=== PATIENT | female | born 1990 | race Caucasian/White ===

== ENCOUNTER 2017-11-19 11:27 | Outpatient (CLI) | payer BC, SELFPAY ==
[2017-11-19 12:09] LABS: Abs Immature Grans 0.02 k/cumm (0.0-0.09); Absolute Basophil Count 0.01 k/cumm (0.0-0.2); Absolute Eosinophil Count 0.03 k/cumm (0.0-0.7); Absolute Lymphocyte Count 2.43 k/cumm (1.2-3.4); Absolute Monocyte Count 0.68 k/cumm (0.11-0.7); Absolute Neutrophil Count 8.12 k/cumm (1.2-6.7); Basophils % 0.1; Eosinophils % 0.3; HCT 41.3 % (36.0-46.0); HGB 14.4 g/dL (12.0-15.5); Immature Grans % 0.2; Lymphocytes % 21.5; Mean Corp. HGB Concentration 34.9 g/dL (32.0-36.0); Mean Corpuscular Hemoglobin 30.3 pg (27.0-33.0); Mean Corpuscular Volume 86.9 fL (80-95); Mean Platelet Volume 10.2 fL (8.0-11.0); Neutrophils % 71.9; Platelet Count 239 x1000/uL (130-400); RBC 4.75 m/cumm (4.00-5.20); RBC Distribution Width 12.1 % (11.7-14.6); White Blood Cell Count 11.29 k/cumm (4.4-10.8)
[2017-11-20 10:11] LABS: HIV-1/2 Ag & Ab Screen Negative (NEGAT); Hepatitis C Ab w Rflx HCV PCR Negative (NEGAT)
[2017-11-20 11:34] LABS: Hepatitis B Surface Ag Negative (NEGAT)
[2017-11-21 08:43] LABS: Rubella IgG Ab (UVM) Positive; Syphilis Serology (RPR) Negative (Negative)
== END 2017-11-19 11:47 ==
PROVIDERS: Visit Provider Obstetrics & Gynecology
DX: Z34.91 Encounter for supervision of normal pregnancy, unspecified, first trimester (principal)
CPT/HCPCS: 36415; 80055; 86850; 86900; 86901; 84702

== ENCOUNTER 2017-12-03 16:03 | Outpatient (REF) | payer BC, SELFPAY ==
[2017-12-03 16:53] LABS: Tricyclic Antidepressants Negative (Negative)
[2017-12-03 16:57] LABS: *AMPHETAMINES SCREEN URINE Negative (Negative); *BARBITURATES SCREEN URINE Negative (Negative); *BENZODIAZEPINES SCREEN URINE Negative (Negative); Cannabinoids THC Negative (Negative); Cocaine Screen,Urine Negative (Negative); METHADONE URINE SCREEN Negative (Negative); OPIATES URINE SCREEN Negative (Negative)
[2017-12-05 14:52] LABS: GC Result Negative; Specimen Description CERVIX
[2017-12-05 15:12] LABS: Chlamydia Result Positive
== END 2017-12-03 16:23 ==
LOC: LBN 16:03
PROVIDERS: Visit Provider Advanced Practice Midwife
DX: Z34.91 Encounter for supervision of normal pregnancy, unspecified, first trimester (principal); Z11.3 Encounter for screening for infections with a predominantly sexual mode of transmission
CPT/HCPCS: 80307; 87491; 87591; 87086

== ENCOUNTER 2017-12-04 14:32 | Outpatient (CLI) | payer BC, SELFPAY ==
[2017-12-04 15:42] LABS: TSH (W/Ref FT4) 2.49 uIU/mL (0.358-3.74)
[2017-12-06 11:34] LABS: Varicella IgG Antibody Positive
== END 2017-12-04 14:52 ==
PROVIDERS: Visit Provider Advanced Practice Midwife
DX: Z34.91 Encounter for supervision of normal pregnancy, unspecified, first trimester (principal); Z11.59 Encounter for screening for other viral diseases
CPT/HCPCS: 36415; 86787; 84443

== ENCOUNTER 2018-01-03 13:52 | Outpatient (CLI) | payer BC, SELFPAY | END 2018-01-03 14:12 | PROVIDERS: Visit Provider Nurse Practitioner | DX: R00.0 Tachycardia, unspecified (principal); Z3A.13 13 weeks gestation of pregnancy | CPT/HCPCS: 93005; 93010 ==

== ENCOUNTER 2018-01-21 11:50 | Emergency (ER) | payer BC, SELFPAY ==
[2018-01-21 12:01] VITALS: BP 112/72; PULSE 121; RESP 22; TEMP 36.6; O2SAT 99
[2018-01-21 12:15] VITALS: PULSE 92; RESP 13; O2SAT 100
--- NOTE | 2018-01-21 12:18 | DI.RAD_ITS ---
SYMPTOMS/DIAGNOSIS: SHORTNESS OF BREATH PA AND LATERAL CHEST: The heart is normal in size. The lungs are clear. The mediastinal structures and pleura appear intact. SUMMARY: Normal chest.
[2018-01-21 12:20] VITALS: PULSE 95; RESP 13; O2SAT 99
--- NOTE | 2018-01-21 12:20 | W.ED.GENAD ---
Discharge Plan Disposition Patient Disposition: HOME Condition: Stable Discharge Details Chief Complaint: Palpitatns Clinical Impression: Shortness of breath Primary Care Provider: None,None ED Provider: Jeffy Salazar Home Meds and New Rx's Prescriptions: Continue prenat.vits,rukhsana,fre-lodq-soibh [ Vitamin] tablet 1 tab PO DAILY RF: 0 ranitidine HCl 150 mg capsule 150 mg PO BID Qty: 30 RF: 0 promethazine 12.5 mg tablet 12.5 mg PO Q6H PRN (Reason: nausea and vomiting) Qty: 30 RF: 2 Discharge Instructions Additional Instructions: your blood work, xray and vq scan showed no concerning findings follow up with your ob provider within a week if ou have svere worsening shortness of breath, high fevers or severe pain return to the emergency department Medical Decision Making 27 yo female at 16 weeks , who on bedside u/s has live iup with fhr of 140 and no pericardial effusion or enlarged rv on beside u/s of patient's heart, who comes in stating she can't get a deep breath in starting today. She has had issues with elevated HR this . She denies chest pain or pressure, fevers or cough, has normal lung sounds and no leg swelling or calf pain. Will eval for anemia but feel given her HR of 110 and normal lung sounds and complaint of sob feel PE needs to be evaluated. Based on uptodate recs will obtain chest xray and if negative proceed with vq scan to eval for this. No chest pain or pressure to suggset acs. No pericardial effusion or evidence of pulmonary edema on bedside u/s labs unremarkable, remains stable, awaiting vq scan pt remains stable, labs and vq scan per Dr. Monk unremarkable. Will d/c home and advised f/u with ob and return if worsening Differential Diagnosis anemia, pe, pericardial effusion, pna Imaging Data Radiologic Study: Attestation: I personally reviewed and interpreted this imaging study as follows: Imaging: X-Ray My impression: no acute findings Radiologic Study #2: Attestation: I personally reviewed and interpreted this imaging study as follows: Imaging: X-Ray (vq scan) Radiologist's impression: normal per dr. monk Lab Data Lab results reviewed: Yes I reviewed the patient's lab results. ECG Data Attestation: I personally reviewed and interpreted this ECG (s) as follows: Prior ECG tracings: not available for review Interpretation: sinus tachycardia, rate of 104, normal axis, pr 116 HPI General Mode of arrival: ambulatory. Date/Time Provider Initiated Documentation: 01/21/18 12:06. Limitations to Documentation: no limitations. Information obtained by: patient. History of Present Illness 27 year old F presents to the emergency department with the chief complaint of short of breath, described as moderate, Patient started experiencing this day(s) (1) and it has been constant. No relieving factors improve symptom(s), No exacerbating factors reported . Patient notes no other symptoms.. Patient did receive the following treatments prior to arrival, none Related Data Home Medications Medication Instructions Recorded Confirmed 1 tab PO DAILY 11/26/17 01/21/18 vitamin,calcium,fwfrqcyx-ebqg-usgnk acid tablet ranitidine 150 mg capsule 150 mg PO BID #30 cap 12/03/17 01/01/18 promethazine 12.5 mg tablet 12.5 mg PO Q6H PRN #30 tab 12/11/17 01/21/18 Previous Rx's Medication Instructions Recorded ranitidine 150 mg capsule 150 mg PO BID #30 cap 12/03/17 promethazine 12.5 mg tablet 12.5 mg PO Q6H PRN #30 tab 12/11/17 Allergies Allergy/AdvReac Type Severity Reaction Status Date / Time ciprofloxacin Allergy Intermediate Itching Unverified 01/21/18 12:06 General Stated Complaint: Palpitatns ISIS: 2 Review of Systems Review of Systems All systems reviewed & are unremarkable except as noted in HPI and below Constitutional Denies chills, Denies fever(s) and Denies weakness Eyes Denies loss of vision ENT Denies change in voice Cardiovascular Denies chest pain Gastrointestinal Denies abdominal pain, Denies nausea and Denies vomiting Genitourinary Denies dysuria Musculoskeletal Denies joint swelling Integumentary/Breasts Denies rash Neurologic Denies loss of vision and Denies weakness Psychiatric Denies depression Endocrine Denies cold intolerance and Denies heat intolerance Allergic/Immunologic Denies urticaria [facility] Medical History Maternal blood transfusion (Acute) Social History adopted: Yes (knows biological hx. 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 Smoking/Tobacco Use Status: Never Surgical History History of appendectomy (Chronic) Female Reproductive History Menstrual Age of Menarche: 15 Duration of menses: 6-7 days control method: none Exam Const General: no acute distress Orientation: alert HENMT Head: normal to inspection Ears: external ears normal General nose exam: external nose normal Mouth: moist mucous membranes Eyes General: appearance normal, both eyes and all related structures Neck Neck: normal visual inspection Resp Effort & Inspection: normal respiratory effort and able to speak in complete sentences Cardio Jugular venous pressure: no JVD Rate: tachycardic Rhythm: regular rhythm Skin General skin exam: no rashes or lesions noted Neuro General: alert and oriented x3 Extrem General: normal to inspection Psych Mental Status: mental status grossly normal Course Vital Signs Temperature 36.6 C 01/21/18 12:01 Pulse 121 H 01/21/18 12:01 Respiratory Rate 22 01/21/18 12:01 Blood Pressure 112/72 01/21/18 12:01 Pulse Oximetry 99 01/21/18 12:01 Temperature 36.6 C 01/21/18 12:01 Temperature Source Skin 01/21/18 12:01 Pulse 121 H 01/21/18 12:01 Respiratory Rate 22 01/21/18 12:01 Respiratory Effort 01/21/18 12:05 Blood Pressure 112/72 01/21/18 12:01 Pulse Oximetry 99 01/21/18 12:01 Pain Level 0 01/21/18 12:01
--- NOTE | 2018-01-21 12:26 | ED.GENADUL_ITS ---
Discharge Plan Disposition Patient Disposition: HOME Condition: Stable Discharge Details Chief Complaint: Palpitatns Clinical Impression: Shortness of breath Primary Care Provider: None,None ED Provider: Jeffy Salazar Home Meds and New Rx's Prescriptions: Continue prenat.vits,rukhsana,ona-genm-wcxfc [ Vitamin] tablet 1 tab PO DAILY RF: 0 ranitidine HCl 150 mg capsule 150 mg PO BID Qty: 30 RF: 0 promethazine 12.5 mg tablet 12.5 mg PO Q6H PRN (Reason: nausea and vomiting) Qty: 30 RF: 2 Discharge Instructions Additional Instructions: your blood work, xray and vq scan showed no concerning findings follow up with your ob provider within a week if ou have svere worsening shortness of breath, high fevers or severe pain return to the emergency department Medical Decision Making 27 yo female at 16 weeks , who on bedside u/s has live iup with fhr of 140 and no pericardial effusion or enlarged rv on beside u/s of patient' s heart, who comes in stating she can't get a deep breath in starting today. She has had issues with elevated HR this . She denies chest pain or pressure, fevers or cough, has normal lung sounds and no leg swelling or calf pain. Will eval for anemia but feel given her HR of 110 and normal lung sounds and complaint of sob feel PE needs to be evaluated. Based on uptodate recs will obtain chest xray and if negative proceed with vq scan to eval for this. No chest pain or pressure to suggset acs. No pericardial effusion or evidence of pulmonary edema on bedside u/s labs unremarkable, remains stable, awaiting vq scan pt remains stable, labs and vq scan per Dr. Monk unremarkable. Will d/c home and advised f/u with ob and return if worsening Differential Diagnosis anemia, pe, pericardial effusion, pna Imaging Data Radiologic Study: Attestation: I personally reviewed and interpreted this imaging study as follows: Imaging: X-Ray My impression: no acute findings Radiologic Study #2: Attestation: I personally reviewed and interpreted this imaging study as follows: Imaging: X-Ray (vq scan) Radiologist's impression: normal per dr. monk Lab Data Lab results reviewed: Yes I reviewed the patient's lab results. ECG Data Attestation: I personally reviewed and interpreted this ECG (s) as follows: Prior ECG tracings: not available for review Interpretation: sinus tachycardia, rate of 104, normal axis, pr 116 HPI General Mode of arrival: ambulatory . Date/Time Provider Initiated Documentation: 01/21/18 12:06 . Limitations to Documentation: no limitations . Information obtained by: patient . History of Present Illness 27 year old F presents to the emergency department with the chief complaint of short of breath, described as moderate, Patient started experiencing this day(s) (1) and it has been constant. No relieving factors improve symptom(s) , No exacerbating factors reported . Patient notes no other symptoms.. Patient did receive the following treatments prior to arrival, none Related Data Home Medications Medication Instructions Recorded Confirmed 1 tab PO DAILY 11/26/17 01/21/18 vitamin,calcium,zhbbruzx-nmtz-vcgqr acid tablet ranitidine 150 mg capsule 150 mg PO BID #30 cap 12/03/17 01/01/18 promethazine 12.5 mg tablet 12.5 mg PO Q6H PRN #30 tab 12/11/17 01/21/18 Previous Rx's Medication Instructions Recorded ranitidine 150 mg capsule 150 mg PO BID #30 cap 12/03/17 promethazine 12.5 mg tablet 12.5 mg PO Q6H PRN #30 tab 12/11/17 Allergies Allergy/AdvReac Type Severity Reaction Status Date / Time ciprofloxacin Allergy Intermediate Itching Unverified 01/21/18 12:06 General Stated Complaint: Palpitatns ISIS: 2 Review of Systems Review of Systems All systems reviewed & are unremarkable except as noted in HPI and below Constitutional Denies chills, Denies fever(s) and Denies weakness Eyes Denies loss of vision ENT Denies change in voice Cardiovascular Denies chest pain Gastrointestinal Denies abdominal pain, Denies nausea and Denies vomiting Genitourinary Denies dysuria Musculoskeletal Denies joint swelling Integumentary/Breasts Denies rash Neurologic Denies loss of vision and Denies weakness Psychiatric Denies depression Endocrine Denies cold intolerance and Denies heat intolerance Allergic/Immunologic Denies urticaria [facility] Medical History Maternal blood transfusion (Acute) Social History adopted: Yes (knows biological hx. 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 Smoking/Tobacco Use Status: Never Surgical History History of appendectomy (Chronic) Female Reproductive History Menstrual Age of Menarche: 15 Duration of menses: 6-7 days control method: none Exam Const General: no acute distress Orientation: alert HENMT Head: normal to inspection Ears: external ears normal General nose exam: external nose normal Mouth: moist mucous membranes Eyes General: appearance normal, both eyes and all related structures Neck Neck: normal visual inspection Resp Effort & Inspection: normal respiratory effort and able to speak in complete sentences Cardio Jugular venous pressure: no JVD Rate: tachycardic Rhythm: regular rhythm Skin General skin exam: no rashes or lesions noted Neuro General: alert and oriented x3 Extrem General: normal to inspection Psych Mental Status: mental status grossly normal Course Vital Signs Temperature 36.6 C 01/21/18 12:01 Pulse 121 H 01/21/18 12:01 Respiratory Rate 22 01/21/18 12:01 Blood Pressure 112/72 01/21/18 12:01 Pulse Oximetry 99 01/21/18 12:01 Temperature 36.6 C 01/21/18 12:01 Temperature Source Skin 01/21/18 12:01 Pulse 121 H 01/21/18 12:01 Respiratory Rate 22 01/21/18 12:01 Respiratory Effort 01/21/18 12:05 Blood Pressure 112/72 01/21/18 12:01 Pulse Oximetry 99 01/21/18 12:01 Pain Level 0 01/21/18 12:01
[2018-01-21 12:30] VITALS: PULSE 105; RESP 15; O2SAT 99
[2018-01-21 12:40] LABS: Abs Immature Grans 0.03 k/cumm (0.0-0.09); Absolute Basophil Count 0.01 k/cumm (0.0-0.2); Absolute Eosinophil Count 0.06 k/cumm (0.0-0.7); Absolute Lymphocyte Count 1.36 k/cumm (1.2-3.4); Absolute Monocyte Count 0.71 k/cumm (0.11-0.7); Absolute Neutrophil Count 9.09 k/cumm (1.2-6.7); Basophils % 0.1; Eosinophils % 0.5; HCT 39.1 % (36.0-46.0); HGB 13.7 g/dL (12.0-15.5); Immature Grans % 0.3; Lymphocytes % 12.1; Mean Corpuscular Hemoglobin 30.5 pg (27.0-33.0); Mean Corpuscular Volume 87.1 fL (80-95); Mean Platelet Volume 10.5 fL (8.0-11.0); Monocytes % 6.3; Neutrophils % 80.7; Platelet Count 230 x1000/uL (130-400); RBC 4.49 m/cumm (4.00-5.20); RBC Distribution Width 13.2 % (11.7-14.6); White Blood Cell Count 11.27 k/cumm (4.4-10.8)
[2018-01-21 12:56] LABS: ALT 37 U/L (12-78); AST 22 U/L (15-37); Albumin 3.5 g/dL (3.4-5.0); Alkaline Phosphatase 66 U/L (46-116); Anion Gap 17.3 mmol/L (3-11); BUN 8 mg/dL (7-18); Bilirubin, Total 0.3 mg/dL (0.2-1.0); CO2 18.7 mmol/L (21.0-32.0); CREATININE 0.64 mg/dL (0.55-1.02); Calcium 9.6 mg/dL (8.5-10.1); Chloride 98 mmol/L (98-107); Glucose 76 mg/dL (70-100); Magnesium 1.7 mg/dL (1.8-2.4); Potassium 3.5 mmol/L (3.5-5.1); Sodium 134 mmol/L (136-145); Total Protein 8.2 g/dL (6.4-8.2)
[2018-01-21 12:58] LABS: Troponin I < 0.02 ng/mL (0.00-0.06)
[2018-01-21 13:00] LABS: Prothrombin Time 9.7 sec (9.3-10.8)
[2018-01-21] MEDS: Normal Saline 1,000 ML 1000 ML IV (13:17)
--- NOTE | 2018-01-21 14:35 | DI.NM_ITS ---
SYMPTOMS/DIAGNOSIS: SHORTNESS OF BREATH LUNG SCAN: A perfusion lung scan was carried out according to the usual protocol. 1.7 mCi of technetium 99m MAA (a reduced dose) was injected intravenously according to the usual protocol. There is no evidence of perfusion defect on multiplanar perfusion imaging. CONCLUSION: Normal perfusion lung scan; no evidence of pulmonary embolic disease.
[2018-01-21 15:52] VITALS: BP 117/70; PULSE 106; RESP 16; TEMP 36.6; O2SAT 98
== END 2018-01-21 15:55 | disposition home or self-care (01) ==
PROVIDERS: Emergency Provider Emergency Medicine
DX: O26.892 Other specified pregnancy related conditions, second trimester (principal); R00.0 Tachycardia, unspecified; Z3A.16 16 weeks gestation of pregnancy; R06.02 Shortness of breath
CPT/HCPCS: 36415; 80053; 93005; 96360; 99285; 71046; 78580; 83735; 84484; 85025; 85610; 85730; 93010

== ENCOUNTER 2018-01-29 16:25 | Outpatient (CLI) | payer BC, SELFPAY ==
[2018-01-31 17:17] LABS: AFP 33.8 ng/mL; Calculated age at EDD 27 years; Cigarette smoking status non-smoker; GA used in risk estimate Scan estimate; INHIBIN 167 pg/mL; IVF Pregnancy No; Initial or repeat testing Initial testing; Insulin dependent diabetes No; Maternal Weight 149 lbs; Number of Fetuses 1; Physician Phone Number 802-748-7300; Prev Down(T21)/Trisomy Pregnan No; Prev Pregnancy w/NTD No; RECOMMENDED FOLLOW UP None.; Results Summary Normal risk; hCG, TOTAL 29.9 IU/mL; hCG, TOTAL MoM 1.18 MoM; uE3 1.36 ng/mL; uE3 MoM 1.13 MoM
== END 2018-01-29 16:45 ==
PROVIDERS: Visit Provider Advanced Practice Midwife
DX: Z34.92 Encounter for supervision of normal pregnancy, unspecified, second trimester (principal); Z36.89 Encounter for other specified antenatal screening
CPT/HCPCS: 36415; 81511

== ENCOUNTER 2018-02-03 00:39 | Outpatient (CLI) | payer BC, SELFPAY ==
--- NOTE | 2018-02-03 14:01 | DI.US_ITS ---
SYMPTOM/DIAGNOSIS: ROUTINE [facility], Z34.90 SURVEY OBSTETRICAL ULTRASOUND: Routine examination. There is a single living intrauterine gestation. Estimated sonographic age is 18 weeks 2 days. No or placental abnormalities are identified. heart rate is 152 BPM. Amniotic fluid appears within normal limits visually. IMPRESSION: Single living intrauterine gestation. Estimated sonographic age is 18 weeks 2 days. Many abnormalities cannot be diagnosed. A normal exam does not exclude a congenital anomaly. Radiology No. [id number] LMP: Exam Date: 02/03/18 [facility] wks days on EDC ([facility]) 07/07/18 Confirmed: HISTORY: SURVEY , WT LOSS ---- PREDICTED GESTATIONAL AGE NUMBER 18 weeks with a range of 17 week to 19 weeks. 1 Determined by_XX__1STUS___LMP___HISTORY Info. pertaining to fetus # PLACENTA PRESENTATION Grade 0-1 Cephalic___ Anterior_XX__Posterior___ Breech____ Right Left Transverse(head right___ Fundal___Low-lying___Previa___ Transverse(head left___ Varying___X___ BIOMETRY AMNIOTIC FLUID BPD: 40 mm 18- weeks Normal HC: 151 mm 18 +1 weeks AC: 127 mm 18 +2 weeks FL: 28 mm 18 +3 weeks AMNIOTIC FLUID INDEX >26 WK CRL: mm weeks Cisterna Magna: 4 mm CI: 0.78 RUQ: LUQ Cerebellum: 1.9 cm EFW: grams Percentile RLQ: LLQ Total: cms Composite AGE= 18 +2 wks EDC by US____07/05/18 BIOPHYSICAL PROFILE ANATOMY IDENTIFIED SCORE 0/2 Heart: 4-Chamber_X__Rate:BPM___152__ LVOT:___X RVOT:____X____ Amniotic Fluid(>2cms)____ Stomach:__X Kidneys:____X Respirations (>30 sec) Bladder ___X Post Fossa __X Body Flex/Extension 3 vessel cord:_X Ventricles:__X cord insertion:___X__ Lips:_X___ Extremity Flex/Extension spinal morphology:____X____Nose:X Total Score= Palate:__X NS=not seen
== END 2018-02-03 00:59 ==
PROVIDERS: Visit Provider Advanced Practice Midwife
DX: Z34.92 Encounter for supervision of normal pregnancy, unspecified, second trimester (principal)
CPT/HCPCS: 76805

== ENCOUNTER 2018-05-17 12:48 | Emergency (ER) | payer MEDICAID, SELFPAY ==
[2018-05-17] VITALS (19 sets, daily range): BP systolic 98–118; BP diastolic 55–79; PULSE 86–124; RESP 13–24; TEMP 37–37.1; O2SAT 97–100
--- NOTE | 2018-05-17 13:05 | DI.CT_ITS ---
SYMPTOM/DIAGNOSIS: CHEST PAIN, SOB PE CHEST CT: CT angiography was performed with multi slice acquisition and multi planar and 3D reconstruction. CT angiography of the chest was performed according to protocol. The patient is . There is significant patient motion artifact which does limit the examination. No pulmonary embolus is seen to the level of the lobar pulmonary arterial branches. Heterogeneous enhancement in the segmental and subsegmental pulmonary artery branches may reflect inadequate enhancement, beam hardening motion or partial flow or partial volume averaging artifact. Segmental or subsegmental pulmonary emboli cannot be entirely excluded however. The thoracic aorta is intact. No evidence of dissection. Heart size is within normal limits. No significant pericardial effusion is seen. No findings to suggest right ventricular dysfunction are present. No thoracic adenopathy, pleural effusion or pneumothorax is identified. The lungs show no acute infiltrates. The bones appear intact. The superior aspect of the uterus is seen on the final images of the examination. IMPRESSION: 1. No definite evidence of pulmonary embolus seen to the level of the lobar pulmonary arterial branches. 2. Heterogeneous enhancement pattern in the segmental and subsegmental branches of the pulmonary arteries difficulty to evaluate due to the patinet motion. This may be motion artifact or inadequate enhancement. Pulmonary emboli at this level cannot be entirely excluded.
--- NOTE | 2018-05-17 13:07 | W.ED.GENAD ---
Discharge Plan Disposition Patient Disposition: [facility] Condition: Serious Discharge Details Chief Complaint: Chest Pain Clinical Impression: , Tachycardia, Weakness of right arm, Slurring of speech, Chest discomfort Primary Care Provider: None,None ED Provider: Daev Lacy Home Meds and New Rx's Prescriptions: No Action prenat.vits,rukhsana,btn-huyl-hqpia [ Vitamin] tablet 1 tab PO DAILY RF: 0 ranitidine HCl [Zantac] 150 mg Tablet 150 mg PO DAILY RF: 0 Discharge Data Discharge Date/Time-TO BE ENTERED AT DEPARTURE: 05/17/18 17:48 Medical Decision Making 13:23 --27-year-old female 011 at 32 weeks here with shortness of breath and chest discomfort that started suddenly about an hour prior to arrival. She is saturating well but is short of breath and tachypneic. She is tachycardic. She has been tachycardic through this intermittently. ECG was reviewed and interpreted by me: Sinus tachycardia 119 bpm, short MN with MN interval of 112, T wave inversions are noted in lead III, some artifact present, nondiagnostic. Oxygen therapy was applied. She continues to have shortness of breath. Consider acute pulmonary embolism. Plan to CT chest. I discussed my concerns with the patient and we discussed risk benefits of CT imaging. Patient provides informed consent to proceed with diagnostic testing. Unclear etiology for neurologic symptoms. Consider venous sinus thrombus. Patient is anxious. FHR 156. Patient notes good movement. -- Labs reviewed. Hypomag and hypokalemia noted. Mag 1g given. Kdur 40meq given. -- Patient noted to have some slurring speech here that resolved. -- Patient notes now having frontal HUGHES that is moderate and not as bad as prior migraine HUGHES (last migraine 2 yr ago). Patient declines tylenol. -- Patient reassessed and numbness and weakness in RUE resolved. Chest discomfort and SOB resolved. Still with mild HUGHES. 17:12 -- I [place] [facility] discussed ED presentation and course and my concern for potential sinus thrombosis: he recommends transfer [place] [facility] [place]. Awaiting [place] [facility] [place] with bed availability. 17:15 -- Spoke with Dr. Em ([facility]) will accept patient in transfer. HPI General Mode of arrival: ambulatory. Date/Time Provider Initiated Documentation: 05/17/18 12:49. Limitations to Documentation: no limitations. Information obtained by: patient. HPI Narrative: 27-year-old at 32 weeks here with chief complaint of shortness of breath. Patient notes about 1 hour prior to arrival she suddenly developed chest pain while at rest. She then developed shortness of breath shortly thereafter. Shortness of breath is severe. Feels like she cannot catch her breath. She has associated anxiety. She also notes some associated tingling and now weakness of her right upper extremity. No leg swelling or calf pain. Patient also notes she had some blurred vision spots in her eyes prior to onset of discomfort. These have resolved. Related Data Home Medications Medication Instructions Recorded Confirmed 1 tab PO DAILY 11/26/17 05/17/18 vitamin,calcium,wdedbjrx-nawl-wcwbv acid tablet ranitidine HCl [Zantac] 150 mg PO DAILY 05/17/18 05/17/18 Allergies Allergy/AdvReac Type Severity Reaction Status Date / Time ciprofloxacin Allergy Intermediate Itching Unverified 05/17/18 13:01 General Stated Complaint: Chest Pain ISIS: 2 Review of Systems Review of Systems All systems reviewed & are unremarkable except as noted in HPI and below PFS Medical History Maternal blood transfusion (Acute) Surgical History History of appendectomy (Chronic) Social History Smoking/Tobacco Use Status: Never Alcohol Intake: former Drug use: Never Substance use type: does not use Adopted: Yes (knows biological hx. 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 Sexually active: Yes Do you feel safe in your relationship?: Yes Female Reproductive History Menstrual Age of Menarche: 15 Duration of menses: 6-7 days control method: none History History 3 Para Hx # Term Pregnancies 1 Multiple births 0 Hx # Pregnancies 0 Ectopic pregnancies 0 AB induced 0 Hx Number of Living Children AB spontaneous 1 Exam Const General: cooperative and no acute distress HENMT Head: normocephalic and atraumatic Mouth: mucous membranes dry Eyes Conjunctivae: normal conjunctivae Sclera: normal sclerae EOM: EOM intact bilaterally Neck Neck: trachea midline and supple Resp Effort & Inspection: no cough and tachypneic Auscultation: clear to auscultation bilaterally, no rales, no rhonchi and no wheezes Cardio Jugular venous pressure: no JVD Rate: tachycardic Rhythm: regular rhythm Heart Sounds: no murmurs GI Palpation: soft, not firm, no guarding, no masses, not rigid and nontender Skin General skin exam: no rashes or lesions noted Neuro General: alert, awake and tone normal Cranial Nerves: CN's II-XI intact bilaterally Cognition: normal cognition Motor: other (4 out of 5 strength right upper extremity, otherwise 5 out of 5) Sensory Exam: other (Paresthesias noted distal right upper extremity, diminished sens rt hand) Extrem General: no edema Psych Affect: anxious affect Other: Tearful Course Vital Signs Temperature 37 C 05/17/18 12:57 Pulse 124 H 05/17/18 12:57 Respiratory Rate 22 05/17/18 12:57 Blood Pressure 118/79 05/17/18 12:57 Pulse Oximetry 97 05/17/18 12:57 Temperature 37 C 05/17/18 12:57 Temperature Source Temporal Artery Scan 05/17/18 12:57 Pulse 124 H 05/17/18 12:57 Respiratory Rate 24 05/17/18 13:01 Respiratory Effort 05/17/18 13:01 Respiratory Depth Normal 05/17/18 13:01 Respiratory Pattern Tachypnea 05/17/18 13:01 Blood Pressure 118/79 05/17/18 12:57 Blood Pressure Position Sitting 05/17/18 12:57 Pulse Oximetry 97 05/17/18 12:57 Oxygen Delivery Method Room Air 05/17/18 12:57 Oxygen Flow Rate 0 05/17/18 12:57 Pain Level 5 05/17/18 12:57
[2018-05-17] MEDS: Lactated Ringers 1,000 ML 1000 ML IV (13:10)
--- NOTE | 2018-05-17 13:26 | ED.GENADUL_ITS ---
Discharge Plan Disposition Patient Disposition: [facility] Condition: Serious Discharge Details Chief Complaint: Chest Pain Clinical Impression: , Tachycardia, Weakness of right arm, Slurring of speech, Chest discomfort Primary Care Provider: None,None ED Provider: Dave Lacy Home Meds and New Rx's Prescriptions: No Action prenat.vits,rukhsana,[id number] [ Vitamin] tablet 1 tab PO DAILY RF: 0 ranitidine HCl [Zantac] 150 mg Tablet 150 mg PO DAILY RF: 0 Discharge Data Discharge Date/Time-TO BE ENTERED AT DEPARTURE: 05/17/18 17:48 Medical Decision Making 13:23 --27-year-old female 011 at 32 weeks here with shortness of breath and chest discomfort that started suddenly about an hour prior to arrival. She is saturating well but is short of breath and tachypneic. She is tachycardic. She has been tachycardic through this intermittently. ECG was reviewed and interpreted by me: Sinus tachycardia 119 bpm, short NE with NE interval of 112, T wave inversions are noted in lead III, some artifact present, nondiagnostic. Oxygen therapy was applied. She continues to have shortness of breath. Consider acute pulmonary embolism. Plan to CT chest. I discussed my concerns with the patient and we discussed risk benefits of CT imaging. Patient provides informed consent to proceed with diagnostic testing. Unclear etiology for neurologic symptoms. Consider venous sinus thrombus. Patient is anxious. FHR 156. Patient notes good movement. -- Labs reviewed. Hypomag and hypokalemia noted. Mag 1g given. Kdur 40meq given. -- Patient noted to have some slurring speech here that resolved. -- Patient notes now having frontal HUGHES that is moderate and not as bad as prior migraine HUGHES (last migraine 2 yr ago). Patient declines tylenol. -- Patient reassessed and numbness and weakness in RUE resolved. Chest discomfort and SOB resolved. Still with mild HUGHES. 17:12 -- I [place] [facility] discussed ED presentation and course and my concern for potential sinus thrombosis: he recommends [place] [facility] [place] Awaiting [place] [facility] [place] bed availability. 17:15 -- Spoke with Dr. Em ([facility]) will accept patient in transfer. HPI General Mode of arrival: ambulatory . Date/Time Provider Initiated Documentation: 05/17/18 12:49 . Limitations to Documentation: no limitations . Information obtained by: patient . HPI Narrative: 27-year-old at 32 weeks here with chief complaint of shortness of breath. Patient notes about 1 hour prior to arrival she suddenly developed chest pain while at rest. She then developed shortness of breath shortly thereafter. Shortness of breath is severe. Feels like she cannot catch her breath. She has associated anxiety. She also notes some associated tingling and now weakness of her right upper extremity. No leg swelling or calf pain. Patient also notes she had some blurred vision spots in her eyes prior to onset of discomfort. These have resolved. Related Data Home Medications Medication Instructions Recorded Confirmed 1 tab PO DAILY 11/26/17 05/17/18 vitamin,calcium,eofgmffr-yrzy-pkfyr acid tablet ranitidine HCl [Zantac] 150 mg PO DAILY 05/17/18 05/17/18 Allergies Allergy/AdvReac Type Severity Reaction Status Date / Time ciprofloxacin Allergy Intermediate Itching Unverified 05/17/18 13:01 General Stated Complaint: Chest Pain ISIS: 2 Review of Systems Review of Systems All systems reviewed & are unremarkable except as noted in HPI and below PFS Medical History Maternal blood transfusion (Acute) Surgical History History of appendectomy (Chronic) Social History Smoking/Tobacco Use Status: Never Alcohol Intake: former Drug use: Never Substance use type: does not use Adopted: Yes (knows biological hx. 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 Sexually active: Yes Do you feel safe in your relationship?: Yes Female Reproductive History Menstrual Age of Menarche: 15 Duration of menses: 6-7 days control method: none History History 3 Para Hx # Term Pregnancies 1 Multiple births 0 Hx # Pregnancies 0 Ectopic pregnancies 0 AB induced 0 Hx Number of Living Children AB spontaneous 1 Exam Const General: cooperative and no acute distress HENMT Head: normocephalic and atraumatic Mouth: mucous membranes dry Eyes Conjunctivae: normal conjunctivae Sclera: normal sclerae EOM: EOM intact bilaterally Neck Neck: trachea midline and supple Resp Effort & Inspection: no cough and tachypneic Auscultation: clear to auscultation bilaterally, no rales, no rhonchi and no wheezes Cardio Jugular venous pressure: no JVD Rate: tachycardic Rhythm: regular rhythm Heart Sounds: no murmurs GI Palpation: soft, not firm, no guarding, no masses, not rigid and nontender Skin General skin exam: no rashes or lesions noted Neuro General: alert, awake and tone normal Cranial Nerves: CN's II-XI intact bilaterally Cognition: normal cognition Motor: other (4 out of 5 strength right upper extremity, otherwise 5 out of 5) Sensory Exam: other (Paresthesias noted distal right upper extremity, diminished sens rt hand) Extrem General: no edema Psych Affect: anxious affect Other: Tearful Course Vital Signs Temperature 37 C 05/17/18 12:57 Pulse 124 H 05/17/18 12:57 Respiratory Rate 22 05/17/18 12:57 Blood Pressure 118/79 05/17/18 12:57 Pulse Oximetry 97 05/17/18 12:57 Temperature 37 C 05/17/18 12:57 Temperature Source Temporal Artery Scan 05/17/18 12:57 Pulse 124 H 05/17/18 12:57 Respiratory Rate 24 05/17/18 13:01 Respiratory Effort 05/17/18 13:01 Respiratory Depth Normal 05/17/18 13:01 Respiratory Pattern Tachypnea 05/17/18 13:01 Blood Pressure 118/79 05/17/18 12:57 Blood Pressure Position Sitting 05/17/18 12:57 Pulse Oximetry 97 05/17/18 12:57 Oxygen Delivery Method Room Air 05/17/18 12:57 Oxygen Flow Rate 0 05/17/18 12:57 Pain Level 5 05/17/18 12:57
[2018-05-17] MEDS: Omnipaque 350 MG/ML 100 ML BTL IJ (13:27)
[2018-05-17 13:35] LABS: ALT 19 U/L (12-78); AST 18 U/L (15-37); Abs Immature Grans 0.04 k/cumm (0.0-0.09); Absolute Eosinophil Count 0.06 k/cumm (0.0-0.7); Albumin 3.1 g/dL (3.4-5.0); Alkaline Phosphatase 129 U/L (46-116); Anion Gap 10.5 mmol/L (3-11); Bilirubin, Total 0.3 mg/dL (0.2-1.0); CO2 24.5 mmol/L (21.0-32.0); CREATININE 0.59 mg/dL (0.55-1.02); Calcium 9.1 mg/dL (8.5-10.1); Chloride 101 mmol/L (98-107); Eosinophils % 0.6; Glucose 117 mg/dL (70-100); HCT 35.2 % (36.0-46.0); HGB 11.5 g/dL (12.0-15.5); Immature Grans % 0.4; Lymphocytes % 17.8; Magnesium 1.7 mg/dL (1.8-2.4); Mean Corp. HGB Concentration 32.7 g/dL (32.0-36.0); Mean Corpuscular Hemoglobin 28.3 pg (27.0-33.0); Mean Corpuscular Volume 86.5 fL (80-95); Mean Platelet Volume 10.8 fL (8.0-11.0); Neutrophils % 76.2; Platelet Count 266 x1000/uL (130-400); Potassium 3.3 mmol/L (3.5-5.1); RBC 4.07 m/cumm (4.00-5.20); RBC Distribution Width 12.6 % (11.7-14.6); Sodium 136 mmol/L (136-145); Total Protein 7.7 g/dL (6.4-8.2)
[2018-05-17 13:40] LABS: Troponin I < 0.02 ng/mL (0.00-0.06)
[2018-05-17 13:47] LABS: BUN 4 mg/dL (7-18)
--- NOTE | 2018-05-17 14:04 | DI.VRAD_ITS ---
EXAM: CT Angiography Chest With Contrast EXAM DATE/TIME: 05/17/2018 1:07 PM CLINICAL HISTORY: 27 years old, female; Pain and signs and symptoms; Shortness of breath; Chest wall pain; Patient HX: Patient , patient aware of risks. ; Additional info: Chest pain, and extreme SOB. TECHNIQUE: Axial computed tomographic angiography images of the chest with intravenous contrast using CT angiography protocol. All CT scans at this facility use at least one of these dose optimization techniques: automated exposure control; mA and/or kV adjustment per patient size (includes targeted exams where dose is matched to clinical indication); or iterative reconstruction. Coronal and sagittal reformatted images were created and reviewed. MIP reconstructed images were created and reviewed. CONTRAST: Contrast Material: 100 ml of omnipaque 350; Contrast Route: iv COMPARISON: CR XR CHEST 2V PA LATERAL 01/21/2018 12:41 PM FINDINGS: Pulmonary arteries: No definite pulmonary embolism is seen to the level of the lobar pulmonary arterial branches bilaterally. The heterogeneous or decreased density of some small segmental and subsegmental pulmonary arterial branches may reflect inadequate enhancement, beam hardening, or motion, flow, or partial volume averaging artifact. One or more small segmental or subsegmental pulmonary emboli cannot be excluded. Aorta: Normal. No aortic aneurysm. No aortic dissection. Lungs: Partially imaged masslike opacity on the last image most consistent with enlarged uterus. Pleural space: Normal. No pneumothorax. No pleural effusion. Heart: Normal. No cardiomegaly. No pericardial effusion. Lymph nodes: Unremarkable. No enlarged lymph nodes. Bones/joints: Unremarkable. No acute fracture. Soft tissues: Unremarkable. Other findings: Motion artifact degrades images. IMPRESSION: No definite pulmonary embolism is seen to the level of the lobar pulmonary arterial branches bilaterally. The heterogeneous or decreased density of some small segmental and subsegmental pulmonary arterial branches may reflect inadequate enhancement, beam hardening, or motion, flow, or partial volume averaging artifact. One or more small segmental or subsegmental pulmonary emboli cannot be excluded. Dictated and Authenticated by: Brenda Johnson MD. Ordering:MURRAY Acosta MD
[2018-05-17] MEDS: MAGNESIUM SULFATE 1 GM/100 ML BAG IVPB (14:57)
[2018-05-17] MEDS: Potassium Chloride 10 MEQ TABCR 20 MEQ PO (15:40)
[2018-05-17] MEDS: FAMOTIDINE 20 MG/50 ML BAG 200 MG IVPB (15:45)
[2018-05-17 17:13] LABS: Bilirubin Negative (Negative); Blood Negative (Negative); Clarity Clear; Glucose Negative (Negative); Ketones Trace mg/dL (Negative); Leukocyte Esterase Negative (Negative); Nitrite Negative (Negative); Specific Gravity 1.015 (1.005-1.025); Urobilinogen 0.2 EU/dL (Up TO 0.2); pH 7.5 (5-8)
[2018-05-17] MEDS: Lactated Ringers 1,000 ML 150 ML IV (17:39)
== END 2018-05-17 17:48 | disposition short-term general hospital (02) ==
PROVIDERS: Emergency Provider Student in an Organized Health Care Education/Training Program
DX: O99.413 Diseases of the circulatory system complicating pregnancy, third trimester (principal); R00.0 Tachycardia, unspecified; R07.9 Chest pain, unspecified; O99.353 Diseases of the nervous system complicating pregnancy, third trimester; R53.1 Weakness; R47.81 Slurred speech; Z3A.32 32 weeks gestation of pregnancy
CPT/HCPCS: 36415; 71275; 80053; 93005; 96361; 96365; 96368; 99285; 81003; 83735; 84484; 85025; 93010; J3475; J3490

== ENCOUNTER 2018-08-11 14:01 | Emergency (ER) | payer MEDICAID, SELFPAY ==
[2018-08-11 14:10] VITALS: BP 122/73; PULSE 74; RESP 18; TEMP 36.6; O2SAT 97
--- NOTE | 2018-08-11 14:37 | W.ED.GENAD ---
Discharge Plan Disposition Patient Disposition: HOME Discharge Details Chief Complaint: Nk/Back Pain Clinical Impression: Back pain Primary Care Provider: Rae Kelsey ED Provider: Dave Lacy Home Meds and New Rx's Prescriptions: Continued norethindrone (contraceptive) [Yolanda-BE] 0.35 mg tablet 0.35 mg PO DAILY RF: 0 Discharge Instructions Instructions: Low Back Strain (ED) Additional Instructions: Please avoid activities that cause discomfort. Please contact your primary care physician to arrange follow-up. If pain persists you may need additional diagnostic testing. Return to the ER for any worsening or new concerning symptoms. Referrals: Rae Kelsye [Primary Care Provider] - Medical Decision Making 14:42 --28-year-old female with history of chronic intermittent low back pain, here with exacerbation of low back pain and spasm lumbar spine. Tender lumbar spine with no deformity. Patient has had some paresthesias in her right foot but is currently neurologically intact on exam. Suspect disc herniation versus lumbosacral strain with spasm. I will give Valium 2 mg orally as well as Toradol IM and Tylenol orally. Plan to reassess. 14:09 --patient reassessed and notes some improvement in back pain, feels more comfortable, able to ambulate. I encouraged the patient to call to schedule follow-up appoint with her primary care physician. I advised that if symptoms do not improve further over the next few days and persist or worsen that she will need follow-up and additional diagnostic testing. Patient was encouraged to return immediately should she have any worsening or new concerning symptoms. HPI General Mode of arrival: ambulatory. Date/Time Provider Initiated Documentation: 08/11/18 14:24. Limitations to Documentation: no limitations. Information obtained by: patient. HPI Narrative: 28-year-old female with chronic intermittent low back pain, here with acute exacerbation of her back pain. Patient notes she was lifting up a bucket and developed sudden spasm in her low back. This occurred just prior to arrival. Pain is been persistent since onset. Pain is worse with certain positions. She also noticed some tingling in her right lateral toes. No associated bowel or bladder dysfunction. No recent trauma. No back surgery in the past. Related Data Home Medications Medication Instructions Recorded Confirmed norethindrone (contraceptive) 0.35 0.35 mg PO DAILY 07/29/18 07/29/18 mg tablet Allergies Allergy/AdvReac Type Severity Reaction Status Date / Time ciprofloxacin Allergy Intermediate Itching Unverified 07/29/18 13:00 General Stated Complaint: Nk/Back Pain ISIS: 4 Review of Systems Genitourinary Denies urinary incontinence Musculoskeletal Reports as per HPI and Reports tingling Integumentary/Breasts Denies rash Neurologic Denies burning sensations, Denies focal weakness, Denies sensory deficit and Reports tingling PFSH Medical History Maternal blood transfusion (Acute) Migraine headache with aura (Acute) Tachycardia (Acute) Anxiety (Chronic) Surgical History History of appendectomy (Chronic) Social History Smoking/Tobacco Use Status: Never Alcohol Intake: current Alcohol Intake frequency: holidays/special occasions only Drug use: Never Substance use type: does not use Adopted: Yes (knows biological hx. 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 Sexually active: Yes Do you feel safe at home: Yes Do you feel safe in your relationship?: Yes Female Reproductive History Menstrual Age of Menarche: 15 Duration of menses: 6-7 days control method: none History History 3 Para Hx # Term Pregnancies 1 Multiple births 0 Hx # Pregnancies 0 Ectopic pregnancies 0 AB induced 0 Hx Number of Living Children AB spontaneous 1 Exam Const General: cooperative and no acute distress HENKY Head: normocephalic and atraumatic Mouth: moist mucous membranes Eyes Conjunctivae: normal conjunctivae Sclera: normal sclerae Neck Neck: trachea midline and supple Resp Auscultation: clear to auscultation bilaterally, no rales, no rhonchi and no wheezes Cardio Jugular venous pressure: no JVD Rate: regular rate and not tachycardic Rhythm: regular rhythm Back/Spine/Pelvis Back: No ecchymosis Cervical Spine: cervical ROM normal and No cervical spinal tenderness Thoracic/Lumbar Spine: thoraco-lumbar spasm, No thoracic spinal tenderness and lumbar spinal tenderness (low midline) Skin General skin exam: no rashes or lesions noted Neuro General: alert, awake, oriented x3 and tone normal Cognition: normal cognition Speech: speech normal Motor: strength 5/5 throughout Sensory Exam: no sensory deficits noted and other (no saddle anesth) Extrem General: no edema Course Vital Signs Temperature 36.6 C 08/11/18 14:10 Pulse 74 08/11/18 14:10 Respiratory Rate 18 08/11/18 14:10 Blood Pressure 122/73 08/11/18 14:10 Pulse Oximetry 97 08/11/18 14:10 Temperature 36.6 C 08/11/18 14:10 Temperature Source Temporal Artery Scan 08/11/18 14:10 Pulse 74 08/11/18 14:10 Respiratory Rate 18 08/11/18 14:10 Respiratory Effort 08/11/18 14:10 Blood Pressure 122/73 08/11/18 14:10 Pulse Oximetry 97 08/11/18 14:10 Oxygen Delivery Method Room Air 08/11/18 14:10 Oxygen Flow Rate 0 08/11/18 14:10
--- NOTE | 2018-08-11 14:44 | ED.GENADUL_ITS ---
Discharge Plan Disposition Patient Disposition: HOME Discharge Details Chief Complaint: Nk/Back Pain Clinical Impression: Back pain Primary Care Provider: Rae Kelsey ED Provider: Dave Lacy Home Meds and New Rx's Prescriptions: Continued norethindrone (contraceptive) [Yolanda-BE] 0.35 mg tablet 0.35 mg PO DAILY RF: 0 Discharge Instructions Instructions: Low Back Strain (ED) Additional Instructions: Please avoid activities that cause discomfort. Please contact your primary care physician to arrange follow-up. If pain persists you may need additional diagnostic testing. Return to the ER for any worsening or new concerning symptoms. Referrals: Rae Kelsey [Primary Care Provider] - Medical Decision Making 14:42 --28-year-old female with history of chronic intermittent low back pain, here with exacerbation of low back pain and spasm lumbar spine. Tender lumbar spine with no deformity. Patient has had some paresthesias in her right foot but is currently neurologically intact on exam. Suspect disc herniation versus lumbosacral strain with spasm. I will give Valium 2 mg orally as well as Toradol IM and Tylenol orally. Plan to reassess. 14:09 --patient reassessed and notes some improvement in back pain, feels more comfortable, able to ambulate. I encouraged the patient to call to schedule follow-up appoint with her primary care physician. I advised that if symptoms do not improve further over the next few days and persist or worsen that she will need follow-up and additional diagnostic testing. Patient was encouraged to return immediately should she have any worsening or new concerning symptoms. HPI General Mode of arrival: ambulatory . Date/Time Provider Initiated Documentation: 08/11/18 14:24 . Limitations to Documentation: no limitations . Information obtained by: patient . HPI Narrative: 28-year-old female with chronic intermittent low back pain, here with acute exacerbation of her back pain. Patient notes she was lifting up a bucket and developed sudden spasm in her low back. This occurred just prior to arrival. Pain is been persistent since onset. Pain is worse with certain positions. She also noticed some tingling in her right lateral toes. No associated bowel or bladder dysfunction. No recent trauma. No back surgery in the past. Related Data Home Medications Medication Instructions Recorded Confirmed norethindrone (contraceptive) 0.35 0.35 mg PO DAILY 07/29/18 07/29/18 mg tablet Allergies Allergy/AdvReac Type Severity Reaction Status Date / Time ciprofloxacin Allergy Intermediate Itching Unverified 07/29/18 13:00 General Stated Complaint: Nk/Back Pain ISIS: 4 Review of Systems Genitourinary Denies urinary incontinence Musculoskeletal Reports as per HPI and Reports tingling Integumentary/Breasts Denies rash Neurologic Denies burning sensations, Denies focal weakness, Denies sensory deficit and Reports tingling PFSH Medical History Maternal blood transfusion (Acute) Migraine headache with aura (Acute) Tachycardia (Acute) Anxiety (Chronic) Surgical History History of appendectomy (Chronic) Social History Smoking/Tobacco Use Status: Never Alcohol Intake: current Alcohol Intake frequency: holidays/special occasions only Drug use: Never Substance use type: does not use Adopted: Yes (knows biological hx. 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 Sexually active: Yes Do you feel safe at home: Yes Do you feel safe in your relationship?: Yes Female Reproductive History Menstrual Age of Menarche: 15 Duration of menses: 6-7 days control method: none History History 3 Para Hx # Term Pregnancies 1 Multiple births 0 Hx # Pregnancies 0 Ectopic pregnancies 0 AB induced 0 Hx Number of Living Children AB spontaneous 1 Exam Const General: cooperative and no acute distress HENGA Head: normocephalic and atraumatic Mouth: moist mucous membranes Eyes Conjunctivae: normal conjunctivae Sclera: normal sclerae Neck Neck: trachea midline and supple Resp Auscultation: clear to auscultation bilaterally, no rales, no rhonchi and no wheezes Cardio Jugular venous pressure: no JVD Rate: regular rate and not tachycardic Rhythm: regular rhythm Back/Spine/Pelvis Back: No ecchymosis Cervical Spine: cervical ROM normal and No cervical spinal tenderness Thoracic/Lumbar Spine: thoraco-lumbar spasm, No thoracic spinal tenderness and lumbar spinal tenderness (low midline) Skin General skin exam: no rashes or lesions noted Neuro General: alert, awake, oriented x3 and tone normal Cognition: normal cognition Speech: speech normal Motor: strength 5/5 throughout Sensory Exam: no sensory deficits noted and other (no saddle anesth) Extrem General: no edema Course Vital Signs Temperature 36.6 C 08/11/18 14:10 Pulse 74 08/11/18 14:10 Respiratory Rate 18 08/11/18 14:10 Blood Pressure 122/73 08/11/18 14:10 Pulse Oximetry 97 08/11/18 14:10 Temperature 36.6 C 08/11/18 14:10 Temperature Source Temporal Artery Scan 08/11/18 14:10 Pulse 74 08/11/18 14:10 Respiratory Rate 18 08/11/18 14:10 Respiratory Effort 08/11/18 14:10 Blood Pressure 122/73 08/11/18 14:10 Pulse Oximetry 97 08/11/18 14:10 Oxygen Delivery Method Room Air 08/11/18 14:10 Oxygen Flow Rate 0 08/11/18 14:10
[2018-08-11] MEDS: Ketorolac 30 MG/ML VIAL IM (14:52)
[2018-08-11] MEDS: diazePAM 2 MG TAB PO (14:52)
[2018-08-11] MEDS: Acetaminophen 325 MG TAB 650 MG PO (14:52)
--- NOTE | 2018-08-11 14:56 | NUR.NOTE ---
pt medicated as per mdo pt resting in bed family at bedside Nursing Note:
[2018-08-11 16:24] VITALS: BP 114/72; PULSE 77; RESP 18; O2SAT 96
== END 2018-08-11 16:26 | disposition home or self-care (01) ==
PROVIDERS: Emergency Provider Student in an Organized Health Care Education/Training Program; PCP Nurse Practitioner
DX: M54.5 Low back pain (principal); M62.830 Muscle spasm of back; R20.2 Paresthesia of skin
CPT/HCPCS: 96372; 99284; J1885

== ENCOUNTER 2018-11-07 17:19 | Emergency (ER) | payer MEDICAID, SELFPAY ==
[2018-11-07 17:26] VITALS: BP 128/88; PULSE 103; RESP 18; TEMP 37.1; O2SAT 99
--- NOTE | 2018-11-07 17:50 | W.ED.GENAD ---
Discharge Plan Disposition Patient Disposition: HOME Condition: Improving Discharge Details Chief Complaint: Headache Clinical Impression: Migraine Primary Care Provider: Rae Kelsey ED Provider: Sulema Mckinley Home Meds and New Rx's Prescriptions: Continued norethindrone (contraceptive) [Yolanda-BE] 0.35 mg tablet 0.35 mg PO DAILY RF: 0 metoprolol tartrate 25 mg Tablet 12.5 mg PO DAILY RF: 0 ibuprofen 200 mg Capsule 400 mg PO DIRECTED RF: 0 Discharge Instructions Instructions: Migraine Headache (ED) Additional Instructions: Alternate Tylenol and Motrin as needed and directed for pain. Take your Zofran that you have at home as needed and directed for nausea and vomiting. Follow-up with primary care doctor next week for reevaluation. Return to the emergency department if you develop any worsening or new concerning symptoms. Discharge Data Discharge Date/Time-TO BE ENTERED AT DEPARTURE: 11/07/18 19:10 Discharge Physician: Sulema Mckinley Medical Decision Making 1735 -- 28-year-old female with a history of migraines and anxiety who presents with migraine that started this afternoon. Feels typical of her usual migraine. She admits to nausea, vomiting, phonophobia and photophobia. Heart rate 103. She is afebrile. She denies any neck pain. As this is similar to her typical migraine, and she has no focal deficits, do not see an indication for imaging and patient is agreeable. Will place an IV, bolus IV fluids, obtain urine test, and give Toradol, Compazine, Decadron and reassess. 1920 --patient feels much better and she is requesting to go home. test negative. She states she has Zofran at home and is declining any medication upon discharge. She is advised to alternate Tylenol and Motrin. She was informed that steroids may decrease her milk production, and to hold on breast-feeding for the next few hours after the dose of Compazine. She is advised to follow-up with her primary care doctor within the next week and to return here with any worsening or concerning symptoms. HPI General Mode of arrival: ambulatory. Date/Time Provider Initiated Documentation: 11/07/18 17:32. Limitations to Documentation: no limitations. Information obtained by: patient. HPI Narrative: Pt is a 28yo F who presents to the ED w/ a complaint of migraine headache since this afternoon. She took 2 ibuprofen without relief. She states the headache feels throbbing, bitemporal and typical of her usual migraine but more intense. She admits to sensitivity to light and noise. She admits to nausea and vomiting 2 times. She denies any fever, neck pain, dizziness, extremity weakness or numbness, or history of injury. Related Data Home Medications Medication Instructions Recorded Confirmed norethindrone (contraceptive) 0.35 0.35 mg PO DAILY 07/29/18 11/07/18 mg tablet ibuprofen 400 mg PO DIRECTED 11/07/18 11/07/18 metoprolol tartrate 12.5 mg PO DAILY 11/07/18 11/07/18 Allergies Allergy/AdvReac Type Severity Reaction Status Date / Time ciprofloxacin Allergy Intermediate Itching Unverified 11/07/18 17:35 General Stated Complaint: Headache ISIS: 3 Review of Systems Review of Systems All systems reviewed & are unremarkable except as noted in HPI and below Constitutional Reports as per HPI, Denies chills, Denies fever(s) and Reports headache(s) Eyes Denies blurry vision ENT Denies dizziness, Reports headache(s), Denies sore throat and Denies throat swelling Cardiovascular Denies chest pain and Denies dyspnea Respiratory Denies cough and Denies dyspnea Gastrointestinal Denies abdominal pain, Denies diarrhea and Reports vomiting Genitourinary Denies hematuria and Denies dysuria Musculoskeletal Denies back pain and Denies numbness Integumentary/Breasts Denies lesions and Denies rash Neurologic Denies dizziness, Reports headache(s), Denies focal weakness and Denies numbness Allergic/Immunologic Denies throat swelling [facility] Medical History Anxiety (Chronic) Maternal blood transfusion (Acute) Migraine headache with aura (Acute) Tachycardia (Acute) Surgical History History of appendectomy (Chronic) Social History Smoking/Tobacco Use Status: Never Alcohol Intake: current Alcohol Intake frequency: holidays/special occasions only Drug use: Never Substance use type: does not use Adopted: Yes (knows biological hx. 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 Sexually active: Yes Do you feel safe at home: Yes Do you feel safe in your relationship?: Yes Female Reproductive History Menstrual Age of Menarche: 15 Duration of menses: 6-7 days control method: none History History 3 Para Hx # Term Pregnancies 1 Multiple births 0 Hx # Pregnancies 0 Ectopic pregnancies 0 AB induced 0 Hx Number of Living Children AB spontaneous 1 Exam Const General: cooperative, healthy appearing and no acute distress HENMT Head: normal to inspection Face and sinus: normal facial exam Eyes General: appearance normal, both eyes and all related structures Pupils: PERRL EOM: EOM intact bilaterally Neck Neck: normal visual inspection and No submandibular swelling Lymphatic: no lymphadenopathy noted Chest Chest: normal inspection of the chest and no tenderness Resp Effort & Inspection: normal respiratory effort and able to speak in complete sentences Auscultation: clear to auscultation bilaterally Cardio Rate: regular rate Rhythm: regular rhythm GI Inspection: normal to inspection Palpation: soft, not firm, not rigid and nontender Auscultation: normal bowel sounds Skin General skin exam: no rashes or lesions noted Neuro General: alert, awake and oriented x3 Cranial Nerves: CN's II-XI intact bilaterally Cognition: normal cognition Speech: speech normal Motor: muscle tone normal throughout and strength 5/5 throughout Sensory Exam: no sensory deficits noted Extrem General: normal to inspection, full ROM, normal capillary refill, no calf tenderness bilaterally and no edema Psych Appearance: grossly normal Mental Status: mental status grossly normal Speech and Movement: speech and movement normal Affect: normal affect Course Vital Signs Temperature 98.8 F 11/07/18 17:26 Pulse 103 H 11/07/18 17:26 Respiratory Rate 18 11/07/18 17:26 Blood Pressure 128/88 11/07/18 17:26 Pulse Oximetry 99 11/07/18 17:26 Temperature 98.8 F 11/07/18 17:26 Pulse 103 H 11/07/18 17:26 Respiratory Rate 18 11/07/18 17:26 Respiratory Effort Non-Labored 11/07/18 17:34 Blood Pressure 128/88 11/07/18 17:26 Pulse Oximetry 99 11/07/18 17:26 Pain Level 8 11/07/18 17:37
[2018-11-07] MEDS: Normal Saline 1,000 ML 1000 ML IV (18:00)
[2018-11-07] MEDS: Normal Saline 50 ML 100 ML (18:24)
[2018-11-07] MEDS: Prochlorperazine 10 MG/2 ML VIAL IVP (18:24)
[2018-11-07] MEDS: Dexamethasone 10 MG/ML VIAL IVP (18:25)
[2018-11-07] MEDS: Ketorolac 30 MG/ML VIAL IVP (18:25)
[2018-11-07 19:27] VITALS: BP 119/70; PULSE 81; RESP 16; TEMP 37.1; O2SAT 99
== END 2018-11-07 19:10 | disposition home or self-care (01) ==
PROVIDERS: Emergency Provider Physician Assistant; PCP Nurse Practitioner
DX: G43.909 Migraine, unspecified, not intractable, without status migrainosus (principal); R11.2 Nausea with vomiting, unspecified; F41.9 Anxiety disorder, unspecified
CPT/HCPCS: 81025; 96361; 96374; 96375; 99284; J0780; J1100; J1885

== ENCOUNTER 2019-12-12 20:54 | Emergency (ER) | payer BC, SELFPAY ==
[2019-12-12 21:00] VITALS: BP 130/88; PULSE 70; RESP 20; TEMP 36; O2SAT 98
--- NOTE | 2019-12-12 21:00 | DI.CT_ITS ---
EXAM: CT HEAD WO CLINICAL HISTORY: headache, r/o mass/tumor. TECHNIQUE: Imaging Protocol: Axial computed tomography images with coronal and sagittal reformatted images were created and reviewed COMPARISON: No exams were available for comparison FINDINGS: Ventricles and Extra axial spaces: Normal in size and morphology for the patient's age. Hemorrhage: None. Cerebral parenchyma: Normal. Midline shift: None. Brainstem/Cerebellum: Normal. Calvarium: Normal. Visualized Paranasal sinuses/Mastoids: Clear. Soft Tissues: Unremarkable. IMPRESSION: No acute intracranial process. RADIATION DOSE DELIVERED: 643.93mGy.cm Total DLP DATA REPOSITORY: All CT scans at this facility are submitted to the National Radiology Data Registry (NRDR) Dose Index Registry (DIR) with the [employer] (ACR). RADIATION OPTIMIZATION: All CT scans at this facility use at least one of these dose optimization te chniques: automated exposure control; mA and/or kV adjustment per patient size (includes targeted exa ms where dose is matched to clinical indication); or iterative reconstruction.
[2019-12-12] MEDS: diphenhydrAMINE 50 MG/ML VIAL 25 MG IVP (21:21)
[2019-12-12] MEDS: methylPREDNISolone SUCC 125 MG VIAL IVP (21:21)
[2019-12-12] MEDS: Ketorolac 15 MG/ML VIAL IVP (21:22)
[2019-12-12] MEDS: Prochlorperazine 10 MG/2 ML VIAL IVP (21:22)
[2019-12-12] MEDS: ACETAMINOPHEN 1,000 MG/100 ML BTL 400 MG IVPB (21:22)
[2019-12-12] MEDS: Normal Saline 1,000 ML 1000 ML IV (21:22)
--- NOTE | 2019-12-12 21:39 | ED.GENADUL_ITS ---
Discharge Plan Disposition Patient Disposition: HOME Condition: Good Discharge Details Clinical Impression: Headache, migraine Primary Care Provider: Rae Kelsey ED Provider: Bharathi Zepeda Home Meds and New Rx's Prescriptions: Continued norethindrone (contraceptive) [Yolanda-BE] 0.35 mg tablet 0.35 mg PO DAILY RF: 0 metoprolol tartrate 25 mg Tablet 12.5 mg PO DAILY RF: 0 ibuprofen 200 mg Capsule 400 mg PO DIRECTED RF: 0 Discharge Instructions Instructions: Acute Headache (ED) Additional Instructions: Your CT scan shows no evidence of tumor or mass. Your symptoms are likely secondary to a migraine headache. Please avoid excessive caffeine, preserved meats or foods. Please drink plenty of fluids. Please follow-up with your current primary care provider about potential outpatient migraine medication. If you notice any worsening of your symptoms, or any new symptoms such as vomiting, diarrhea, fever, chills, shortness of breath, chest pain, numbness, weakness, or fainting , please return immediately to the emergency department for reevaluation. Please follow up with your primary care provider as soon as possible for reassessment and reevaluation. As always, it was a pleasure participating in your medical care today. Referrals: Rae Kelsey [Primary Care Provider] - Discharge Data Discharge Date/Time-TO BE ENTERED AT DEPARTURE: 12/12/19 21:55 Medical Decision Making 29-year-old female with no significant past medical history except for previous headaches presents today for evaluation of headache. Patient states that earlier this afternoon she had gradual onset of a headache which she describes as achy and pounding in the left frontal aspect of her skull just above the left eye. The patient denies any headache red flags of worst headache of life, thunderclap headache, neck pain, fever, chills, concerning family history of polycystic kidney disease, Marfan syndrome, Alejandro-Danlos syndrome, abdominal aortic aneurysm, aortic dissection, or intracranial aneurysm. The patient is adopted. She had good 400 mg of ibuprofen 2 hours prior to arrival but had no improvement of her symptoms at that time. She states it feels consistent with prior headaches. She denies any other complaints. She is currently on her period. Physical exam demonstrates no clinical evidence of meningitis, no concerning red flags for her headache. Neurologic exam is u nremarkable. I do feel her symptoms most likely secondary to a migraine, however the patient has no history of previous intracranial imaging. I do feel that when imaging study is indicated to make sure there is no evidence of mass that is causing her headaches. We will get a CT scan, treat with migraine cocktail, gently rehydrate monitor closely and reasse 10:[address] scan negative for acute process. Patient is feeling much better. Repeat neurologic exam shows no focal neurologic deficits. Patient requesting discharge. Will discharge home with close follow-up. Discussed red flags which to return. I have extensively reviewed the treatment plan and discharge instructions with the patient and their family. I have addressed all patient concerns at this time. The patient and family was made aware of what symptoms to monitor for that would warrant a return to the emergency department. Discussed the plan with the patient and family, they demonstrate verbal understanding and agreement with our assessment and plan at this time. FINDINGS: No evidence of hemorrhage. No mass effect. No acute intracranial abnormality. IMPRESSION: No evidence of acute intracranial process. Thank you for allowing us to participate in the care of your patient. Dictated and Authenticated by: Edison Nelson MD 12/12/2019 9:42 PM Eastern Time ([place] & [place]) HPI General Date/Time Provider Initiated Documentation: 12/12/19 20:59 . HPI Narrative: 29-year-old female with no significant past medical history except for previous headaches presents today for evaluation of headache. Patient states that earlier this afternoon she had gradual onset of a headache which she descri bes as achy and pounding in the left frontal aspect of her skull just above the left eye. The patient denies any headache red flags of worst headache of life, thunderclap headache, neck pain, fever, chills, concerning family history of polycystic kidney disease, Marfan syndrome, Alejandro-Danlos syndrome, abdominal aortic aneurysm, aortic dissection, or intracranial aneurysm. The patient is adopted. She had good 400 mg of ibuprofen 2 hours prior to arrival but had no improvement of her symptoms at that time. She states it feels consistent with prior headaches. She denies any other complaints. She is currently on her period. Related Data Home Medications Medication Instructions Recorded Confirmed norethindrone (contraceptive) 0.35 0.35 mg PO DAILY 07/29/18 11/07/18 mg tablet ibuprofen 400 mg PO DIRECTED 11/07/18 11/07/18 metoprolol tartrate 12.5 mg PO DAILY 11/07/18 11/07/18 Allergies Allergy/AdvReac Type Severity Reaction Status Date / Time ciprofloxacin Allergy Intermediate Itching Unverified 11/07/18 17:35 General Stated Complaint: Headache ISIS: 3 Review of Systems All systems reviewed & are unremarkable except as noted in HPI and below PFSH Medical History (Updated 12/12/19 @ 21:43 by Bharathi Zepeda DO) Anxiety Maternal blood transfusion Migraine headache with aura Tachycardia Surgical History History of appendectomy Social History Smoking/Tobacco Use Status: Never Alcohol Intake: current Alcohol Intake frequency: holidays/special occasions only Drug use: Never Substance use type: does not use Adopted: Yes (knows biological hx. 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 Sexually active: Yes Do you feel safe at home: Yes Do you feel safe in your relationship?: Yes Female Reproductive History Menstrual Age of Menarche: 15 Duration of menses: 6-7 days control method: none History History 3 Para Hx # Term Pregnancies 1 Multiple births 0 Hx # Pregnancies 0 Ectopic pregnancies 0 AB induced 0 Hx Number of Living Children AB spontaneous 1 Past Pregnancies Del. Date GA/Weeks # Outcome Route Wgt Sex Labor Lgth Anesthes ia Location Prov Complic Unknown Delivery Date: Patient transported to [facility] on 05/17/2018 Dolly Moore Exam Narrative Exam Narrative: 1.Const: Well-nourished, Well-developed, appearing stated age 2.Eyes: PERRL, no conjunctival injection, and symmetrical lids. 3.ENT: Atraumatic external nose and ears. Moist MM. Neck: Symmetric, trachea midline, No thyromegaly. Patient demonstrates good movement of cervical neck. There is no nuchal rigidity, no nuchal tenderness. Patient is able to flex the neck without any difficulty or significant pain. Negative Kernig's and Brudzinski sign. 4.CVS: +S1/S2, No murmurs or gallops. Peripheral pulses 2+ and equal in all extremities. Brisk capillary refill in all extremities. 5.RESP: Unlabored respiratory effort. Clear to auscultation bilaterally. No wheezes rales or rhonchi 6.GI: Soft, Nontender/Nondistended, No hepatosplenomegaly. No guarding or rebound. 7.MSK: Normocephalic/Atraumatic, Extremities w/o deformity or ttp No cyanosis or clubbing, Normal movement of all extremities 8.Skin: Warm, Dry. No rashes or lesions. 9.Neuro: metal buffer II-XII grossly intact. Sensation grossly intact, no focal neurologic deficits. All 6 cardinal planes of vision are fully intact. No evidence of rotatory or vertical nystagmus. The patient demonstrated a normal [id number], good dexterity. There was no evidence of dysdiadochokinesia. Patient was able to ambulate without difficulty. There was no wide-based gait. Romberg testing was normal. Spcu-oz-tdtu testing was normal. Sensation was intact bilaterally as well as muscle strength bilaterally for all extremities. Patient was able to verbalize butter cup with no slurring, or miss pronunciation. 10.Psych: (AAO) x3. Appropriate mood and affect Course Vital Signs Vital signs: Vital Signs Temperature 36.0 C L 12/12/19 21:00 Pulse 70 12/12/19 21:00 Respiratory Rate 20 12/12/19 21:00 Blood Pressure 130/88 12/12/19 21:00 Pulse Oximetry 98 12/12/19 21:00 Temperature 36.0 C L 12/12/19 21:00 Temperature Source Temporal Artery Scan 12/12/19 21:00 Pulse 70 12/12/19 21:00 Respiratory Rate 20 12/12/19 21:00 Respiratory Effort 12/12/19 21:04 Blood Pressure 130/88 12/12/19 21:00 Pulse Oximetry 98 12/12/19 21:00 Oxygen Delivery Method Room Air 12/12/19 21:00 Oxygen Flow Rate 0 12/12/19 21:00 Pain Level 10 12/12/19 21:02
--- NOTE | 2019-12-17 16:03 | DI.VRAD_ITS ---
PROCEDURE INFORMATION: Exam: CT Head Without Contrast Exam date and time: 12/12/2019 9:06 PM Age: 29 years old Clinical indication: Pain; Headache TECHNIQUE: Imaging protocol: Computed tomography of the head without contrast. Radiation optimization: All CT scans at this facility use at least one of these dose optimization techniques: automated exposure control; mA and/or kV adjustment per patient size (includes targeted exams where dose is matched to clinical indication); or iterative reconstruction. COMPARISON: No relevant prior studies available. FINDINGS: No evidence of hemorrhage. No mass effect. No acute intracranial abnormality. IMPRESSION: No evidence of acute intracranial process. Dictated and Authenticated by: Edison Nelson MD. Ordering:ETHAN Garvin MD
== END 2019-12-12 21:55 | disposition home or self-care (01) ==
PROVIDERS: Emergency Provider Student in an Organized Health Care Education/Training Program; PCP Nurse Practitioner
DX: G43.809 Other migraine, not intractable, without status migrainosus (principal)
CPT/HCPCS: 96361; 96365; 96375; 99284; 70450; J0131; J0780; J1200; J1885; J2930

== ENCOUNTER 2020-01-05 16:08 | Outpatient (REF) | payer BC, SELFPAY ==
[2020-01-10 22:44] LABS: Patient Race White; SARS-CoV-2 RNA Undetected (Undetected); SARS-CoV-2 Specimen Source Nasal
== END 2020-01-05 16:28 ==
LOC: NCHCN 16:08
PROVIDERS: PCP Nurse Practitioner; Visit Provider Nurse Practitioner Family
DX: J02.9 Acute pharyngitis, unspecified (principal); R50.9 Fever, unspecified
CPT/HCPCS: U0003

== ENCOUNTER 2020-05-24 09:56 | Emergency (ER) | payer BC, SELFPAY ==
[2020-05-24 10:01] VITALS: BP 147/94; PULSE 105; RESP 20; TEMP 36.4; O2SAT 100
--- NOTE | 2020-05-24 10:05 | ED.GENADUL_ITS ---
Discharge Plan Disposition Patient Disposition: HOME Condition: Improving Discharge Details Clinical Impression: Vomiting affecting , Antepartum asymptomatic bacteriuria in first trimester Primary Care Provider: Rae Kelsey ED Provider: Promise Pires Home Meds and New Rx's Prescriptions: New cephalexin 500 mg tablet 500 mg PO BID 5 Days Qty: 10 RF: 0 promethazine 25 mg tablet 25 mg PO TID PRN (Reason: nausea and vomiting) Qty: 10 RF: 0 Discharge Instructions Instructions: Hyperemesis Gravidarum (ED), Urinary Tract Infection in (ED) Additional Instructions: Please keep your previously scheduled SUPPLY CHAIN PROGRAM MANAGER appointment this . Small frequent meals try rashad or lemon. Take medications as directed. Follow up with primary care provider in 3-5 days. Return to ED sooner if any worsening or concerns. Increase oral fluids. Referrals: Rae Kelsey [Primary Care Provider] - Discharge Data Discharge Date/Time-TO BE ENTERED AT DEPARTURE: 05/24/20 12:50 Medical Decision Making 29-year-old female Ab1 presents to the ER with chief complaint of vomiting and nausea for the last 48 hours. She states that she has been unable to keep anything down last 2 days. She has her first appointment with [place] [facility]PPL[facility] CH[facility] PROGRAM MANAGER on . She denies any vaginal bleeding or vaginal discharge, she reports decreased urine output the last 24 hours. She denies any dysuria no fever chills. She reports some mild abdominal cramping. She denies any diarrhea. She has a past medical history of migraines, anxiety, tachycardia. She is a non-smoker. She denies any illicit drugs. At this time normal saline 1 L ordered, 12.5 mg of promethazine, BMP and urinalysis. 1039: POC US machine to Bedside, Fetus with movement and cardiac movement visualized on sonogram. 1205: Patient received a second dose of 12.5 mg of promethazine second liter of normal saline is infusing without difficulty. Patient has been up to the bathroom. Urinalysis shows trace leukocytes 10-20 WBCs and 40 ketones. At this time we will treat her for asymptomatic bacteremia in the first trimester with cephalexin 500 mg first dose given here patient to be sent home with 4 tablets for the first couple of days. Instructed to keep initial appointment with SUPPLY CHAIN PROGRAM MANAGER on in [place]. Patient verbalizes understanding. P.o. trial in place patient given rashad angelica and saltine crackers. 1208:. Discussed plan of care with patient including antibiotic and nausea medication which was sent to her pharmacy she verbalizes understanding at this time. This text was generated using Equals6ation system, please disregard any oddities of phrase or misspellings. HPI General Mode of arrival: ambulatory . Date/Time Provider Initiated Documentation: 05/24/20 10:01 . Limitations to Documentation: no limitations . Information obtained by: patient . HPI Narrative: 29-year-old female Ab1 presents to the ER with chief complaint of vomiting and nausea for the last 48 hours. She states that she has been unable to keep anything down last 2 days. She has her first appointment with [place] [facility] CH[facility] PROGRAM MANAGER on . She denies any vaginal bleeding or vaginal discharge, she reports decreased urine output the last 24 hours. She denies any dysuria no fever chills. She reports some mild abdominal cramping. She denies any diarrhea. She has a past medical history of migraines, anxiety, tachycardia. She is a non-smoker. She denies any illicit drugs. Related Data Home Medications Medication Instructions Recorded Confirmed cephalexin 500 mg PO BID 5 Days #10 tab 05/24/20 promethazine 25 mg PO TID PRN #10 tab 05/24/20 Previous Rx's Medication Instructions Recorded cephalexin 500 mg PO BID 5 Days #10 tab 05/24/20 promethazine 25 mg PO TID PRN #10 tab 05/24/20 Allergies Allergy/AdvReac Type Severity Reaction Status Date / Time ciprofloxacin Allergy Intermediate Itching Unverified 05/24/20 10:03 General Stated Complaint: Nausea/Vomit/Diar ISIS: 3 Review of Systems Narrative: Constitutional: Negative for weight loss, alert and oriented, well groomed, normal body habitus, appears comfortable. HEENT: Denies trauma, headaches, blurry vision, nasal discharge, sore throat, trouble swallowing. Chest: Denies chest pain, palpitations, irregular rhythm, hypertension. Respiratory: Denies Shortness of breath, cough, hemoptysis. GI: Denies diarrhea, constipation. Positive abdominal cramping, nausea vomiting. : Denies dysuria, hematuria, flank pain, rectal bleeding. Denies vaginal blee ding or discharge. Neuro: Denies dizziness, blurry vision, weakness, syncope, headache or facial numbness. Hematologic: Denies easy bruising, intolerance to heat or cold, hair loss. [facility] Medical History (Updated 05/24/20 @ 12:04 by Promise Pires) Anxiety Maternal blood transfusion Migraine headache with aura Tachycardia Surgical History History of appendectomy Social History Smoking/Tobacco Use Status: Never Smoking risk assessment performed?: Yes Alcohol Intake: current Alcohol Intake frequency: holidays/special occasions only Drug use: Never Substance use type: does not use Adopted: Yes (knows biological hx. 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 Sexually active: Yes Do you feel safe at home: Yes Do you feel safe in your relationship?: Yes Female Reproductive History Menstrual Age of Menarche: 15 Duration of menses: 6-7 days control method: none History History 3 Para Hx # Term Pregnancies 1 Multiple births 0 Hx # Pregnancies 0 Ectopic pregnancies 0 AB induced 0 Hx Number of Living Children AB spontaneous 1 Past Pregnancies Del. Date GA/Weeks # Outcome Route Wgt Sex Labor Lgth Anesthes ia Location Prov Complic Unknown Delivery Date: Patient transported to [facility] [place] on 05/17/2018 Dolly Moore Exam Narrative Exam Narrative: Constitutional: Alert and oriented x3. Appears stated age. Normal body habitus. Head: Normocephalic, no trauma. Eyes: Pupils PERRLA, Red reflex noted, EOM's intact. Eyelids symmetrical without lesions, discharge, or swelling. ENT: Bilateral TM's WNL, External ear normal to inspection, no mastoid TTP, swelling, or erythema, Nasal turbinates WNL, no nasal discharge. Normal dentition, Posterior pharynx WNL, no exudate. Chest: RRR, Normal S1, S2, distal pulses intact. Resp: Lungs clear to auscultation bilaterally, no wheezes, rales, or rhonchi. Abdomen: Soft, non distended, no guarding nontender to palpation all 4 quadrants. Musculoskeletal: Normal gait, 5/5 strength to all four extremities. Skin: No suspicious rashes or lesions. Capillary refill less than 2 sec. Neurologic: Cranial nerves II-XII intact. Alert and oriented x 3. DTR's intact. Hematologic/Lymphatic: No ecchymosis, no lymphadenopathy. Course Vital Signs Vital signs: Vital Signs Temperature 36.4 C L 05/24/20 10:01 Pulse 105 H 05/24/20 10:01 Respiratory Rate 20 05/24/20 10:01 Blood Pressure 147/94 H 05/24/20 10:01 Pulse Oximetry 100 05/24/20 10:01 Temperature 36.4 C L 05/24/20 10:01 Temperature Source Skin 05/24/20 10:01 Pulse 105 H 05/24/20 10:01 Respiratory Rate 20 05/24/20 10:01 Respiratory Effort Non-Labored 05/24/20 10:04 Blood Pressure 147/94 H 05/24/20 10:01 Blood Pressure Position Sitting 05/24/20 10:01 Pulse Oximetry 100 05/24/20 10:01 Oxygen Delivery Method Room Air 05/24/20 10:01 Oxygen Flow Rate 0 05/24/20 10:01 Pain Level 0 05/24/20 10:01
[2020-05-24 10:20] LABS: Anion Gap 13.6 mmol/L (3-11); BUN 10 mg/dL (7-18); CO2 24.4 mmol/L (21.0-32.0); CREATININE 0.8 mg/dL (0.55-1.02); Calcium 9.8 mg/dL (8.5-10.1); Chloride 99 mmol/L (98-107); Glucose 91 mg/dL (74-106); Potassium 3.5 mmol/L (3.5-5.1); Sodium 137 mmol/L (136-145)
[2020-05-24] MEDS: Normal Saline 1,000 ML 1000 ML IV ×2 (10:26→11:45)
[2020-05-24] MEDS: Normal Saline Flush 10 ML SYR IVP ×2 (10:27→11:45)
[2020-05-24 11:43] LABS: Bilirubin Negative (Negative); Blood Negative (Negative); Clarity Clear (Clear); Glucose Negative (Negative); Ketones 40 mg/dL (Negative); Leukocyte Esterase Trace (Negative); Nitrite Negative (Negative); Urobilinogen 0.2 EU/dL (Up TO 0.2); pH 6.5 (5-8)
[2020-05-24 11:54] LABS: Bacteria Moderate HPF (Negative); C & S Indicated? Yes; Casts Negative LPF (Negative); Crystals Negative HPF (Negative); Epithelial Cells Few HPF (Negative); Mucus Trace (Negative); RBC 0-2 HPF (0-2)
[2020-05-24] MEDS: Cephalexin 500 MG CAP, 4 CAPS/BTL PO (12:21)
[2020-05-24] MEDS: Cephalexin 500 MG CAP PO (12:21)
[2020-05-24 12:23] VITALS: BP 111/59; PULSE 92; RESP 18; TEMP 36.7; O2SAT 100
[2020-05-24 12:48] VITALS: BP 118/67; PULSE 94; TEMP 36.6; O2SAT 100
== END 2020-05-24 12:50 | disposition home or self-care (01) ==
PROVIDERS: Emergency Provider Registered Nurse Emergency; PCP Nurse Practitioner
DX: O21.0 Mild hyperemesis gravidarum (principal); O23.41 Unspecified infection of urinary tract in pregnancy, first trimester; Z3A.01 Less than 8 weeks gestation of pregnancy
CPT/HCPCS: 36415; 80048; 96361; 96365; 99284; 81003; 81015; 84702; 87086

== ENCOUNTER 2020-09-12 21:49 | Outpatient (REF) | payer BC, SELFPAY ==
[2020-09-14 14:14] LABS: COVID-19 RT-PCR UVMMC Result Negative (Negative)
== END 2020-09-12 21:50 | disposition home or self-care (01) ==
LOC: NCHCN 21:49
PROVIDERS: PCP Nurse Practitioner; Visit Provider Family Medicine
DX: R05 Cough (principal); Z20.822 Contact with and (suspected) exposure to COVID-19
CPT/HCPCS: U0003

== ENCOUNTER 2020-10-05 18:26 | Emergency (ER) | payer MEDICAID, SELFPAY ==
[2020-10-05] VITALS (25 sets, daily range): BP systolic 109–136; BP diastolic 61–78; PULSE 87–109; RESP 12–23; TEMP 36.1; O2SAT 100
--- NOTE | 2020-10-05 18:30 | RT.EKG_ITS ---
APPROVED REPORT Exam: Resting ECG Reason for Exam: stroke like Patient Location: E HR:98 bpm ECG Measurements Heart Rate 98 AXIS CA 126 P 46 QRSd 84 QRS 46 QT 347 T 8 QTc 444 Conclusion Sinus rhythm...normal P axis, V-rate 60- 99
--- NOTE | 2020-10-05 19:04 | W.ED.GENAD ---
Discharge Plan Disposition Patient Disposition: HOME Condition: Stable Discharge Details Clinical Impression: Migraine, Visual disturbance Primary Care Provider: Rae Kelsey ED Provider: Regina Gifford Home Meds and New Rx's Prescriptions: Continued promethazine 25 mg tablet 25 mg PO TID PRN (Reason: nausea and vomiting) Qty: 10 RF: 0 Discharge Instructions Instructions: Migraine Headache (ED) Additional Instructions: Please continue to encourage hydration. Please call your TEMPLATE REPRODUCTION TECHNICIAN tomorrow and schedule follow-up appointment to discuss your headaches further. Please try to reduce any stress as much as possible. Please consider further evaluation by neurology, discussed utility of appointment now versus waiting until after you have delivered your baby. If you develop increased weakness, fever/chills, rash or the new/worsening symptoms please seek care urgently once again Referrals: Rae Kelsey [Primary Care Provider] - Discharge Data Discharge Date/Time-TO BE ENTERED AT DEPARTURE: 10/05/20 21:17 Medical Decision Making <Dave Lacy MD - Last Filed: 10/09/20 10:19> Patient seen, examined, and discussed with GLORIA Gifford. Neuro exam is normal. Headache much improved on reassessment. I agree with treatment plan as discussed/documented. <GLORIA Langford - Last Filed: 10/06/20 02:04> Patient is a pleasant 30-year-old female with past medical history significant for migraines, presenting today with chief complaint of difficulty with word finding and confusion. She reports that she has had similar episodes historically. Patient reports that she is 25-week gestation, this for uncomplicated . She reports that approximate 30 minutes prior to arrival she began having difficulty with word finding and text her significant other I no find words like last time. States that she was shopping at the time of the onset. Has not had any physical weakness. No sensory deficits. Denies any fevers or chills. No rash. Denies any shortness of breath. No chest pain. States that she also began having a right sided visual change which she states is consistent with the aura she typically has prior to the onset of her migraines. However, she denies any headache currently. She is concerned that this may be developing. Patient reports that she had similar episodes at which time she was [place] [facility] [place]. At that time, patient had headache, visual change in the right eye consistent with previous aura symptoms, right arm weakness. Concern for venous thromboembolism and MRV MRI was obtained. Imaging were normal. Her neurologic and exam improved. On exam, patient appears nontoxic. She appears profoundly anxious. While she repetitively tells me that she has difficulty with word finding, when I slow her down, she is speaking clearly and able to answer all of my questions appropriately. I do not appreciate any garbled speech, understanding all of what she says. Her only neurological deficit at this time seems to be upper field deficits on the right side which she states is typical. She is 5 of 5 strength. Shortly after initial exam, patient began to report that she has headache developing consistent with her typical migraine. She reports that she also has some tingling when the blood pressure cuff increase along the radial side of her right arm. Two-point is intact. Strength is intact. Patient discussed case with Dr. Lacy. Patient primarily looks very anxious. I discussed emergent imaging with him. Rather, with his neurologic exam being intact, he recommended treating anxiety with Ativan. Will give Tylenol for headache. We will frequently reassess. Will obtain baseline lab and continue to monitor. After Ativan, patient symptoms with the right hand improved. Vision has returned to normal. She still continues to have a slight headache on the left side which again, patient feels is normal for her migraines. Labs reviewed. White count 10.8. No anemia. CMP without significant abnormality. TSH within normal limits. Ketones are noted in the urine but otherwise normal. Patient was reevaluated by Dr. Lacy, he performed neurologic exam does not note any deficit. She feels that this is most consistent with anxiety and migraines. Patient has had complex migraines historically. He does not feel that transfer to higher level of care further imaging is warranted. I discussed this with the patient. She is in agreement with this plan. Feels significantly improved. She is aware that she may return anytime if symptoms worsen. She seems to be accompanied by very attentive significant other. I have encouraged close follow-up with her TEMPLATE REPRODUCTION TECHNICIAN. She will call tomorrow to schedule follow-up appointment. Encouraged that she f/u with neurology as she has had chronic difficulty with controlling her migraines and can have unusual neurologic deficits with them. Strict return precautions discussed. All of her questions and concerns were addressed and she is in agreement this plan. HPI <Dave Lacy MD - Last Filed: 10/09/20 10:19> General Date/Time Provider Initiated Documentation: 10/05/20 18:38. Related Data Home Medications Medication Instructions Recorded Confirmed promethazine 25 mg PO TID PRN #10 tab 05/24/20 10/05/20 Previous Rx's Medication Instructions Recorded promethazine 25 mg PO TID PRN #10 tab 05/24/20 Allergies Allergy/AdvReac Type Severity Reaction Status Date / Time ciprofloxacin Allergy Intermediate Itching Unverified 05/24/20 10:03 prochlorperazine AdvReac Intermediate Unverified 10/05/20 18:44 [From Compazine] <GLORIA Langford - Last Filed: 10/06/20 02:04> General Mode of arrival: ambulatory. Limitations to Documentation: no limitations. Information obtained by: patient, family () and RN notes reviewed. History of Present Illness 30 year old F presents to the emergency department with the chief complaint of difficulty with word finding, visual changes in left eye, described as moderate and similar to prior episodes, Quality is described as other (denies any pain), Patient started experiencing this minute(s) and it has been constant. No relieving factors improve symptom(s), No exacerbating factors reported . Patient notes no other symptoms. and confusion; denies chest pain, cough, diaphoresis, fever/chills, headaches, loss of appetite, nausea/vomiting, rash, shortness of breath and weakness. Patient did receive the following treatments prior to arrival, none General Stated Complaint: CVA/TIA ISIS: 2 <GLORIA Langford - Last Filed: 10/06/20 02:04> Constitutional Constitutional: Reports as per HPI, Denies chills, Denies fever(s), Denies frequent falls, Denies headache(s) and Denies weakness Eyes Eyes: Reports as per HPI, Denies blurry vision, Reports change in vision and Reports photophobia ENT Ears, Nose, Mouth, and Throat: Denies vertigo, Denies headache(s) and Denies neck pain Cardiovascular Cardiovascular: Reports as per HPI, Denies chest pain, Denies lightheadedness, Denies dyspnea and Denies dyspnea on exertion Respiratory Respiratory: Reports as per HPI, Denies chest congestion, Denies cough, Denies dyspnea, Denies dyspnea on exertion, Denies stridor and Denies wheezing Gastrointestinal Gastrointestinal: Reports as per HPI, Denies abdominal pain, Denies change in bowel habits, Denies nausea and Denies vomiting Musculoskeletal Musculoskeletal: Reports as per HPI, Denies back pain, Denies myalgias, Denies muscle cramps, Denies neck pain and Denies numbness Integumentary/Breasts Skin/Breast: Reports as per HPI and Denies rash Neurologic Neurologic: Reports as per HPI, Denies abnormal movements, Denies abnormal speech, Denies behavioral changes, Reports confusion, Denies vertigo, Denies frequent falls, Denies headache(s), Denies localized weakness, Denies numbness, Denies sensory deficit and Denies weakness Psychiatric Psychiatric: Denies behavioral changes and Reports confusion Allergic/Immunologic Allergic/Immunologic: Denies wheezing PFSH <Dave Lacy MD - Last Filed: 10/09/20 10:19> Medical History (Updated 10/05/20 @ 21:09 by GLORIA Langford) Anxiety Maternal blood transfusion Migraine headache with aura Tachycardia Surgical History History of appendectomy Social History Smoking/Tobacco Use Status: Never Smoking risk assessment performed?: Yes Alcohol Intake: current Alcohol Intake frequency: holidays/special occasions only Drug use: Never Substance use type: does not use Adopted: Yes (knows biological hx. 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 Sexually active: Yes Do you feel safe at home: Yes Do you feel safe in your relationship?: Yes History History 3 Para Hx # Term Pregnancies 1 Multiple births 0 Hx # Pregnancies 0 Ectopic pregnancies 0 AB induced 0 Hx Number of Living Children AB spontaneous 1 Past Pregnancies Del. Date GA/Weeks # Outcome Route Wgt Sex Labor Lgth Anesthesia Location Prov Complic Unknown Delivery Date: [place] [facility] [place] Dolly Moore <GLORIA Langford - Last Filed: 10/06/20 02:04> Female Reproductive History Age of Menarche: 15 Duration of menses: 6-7 days control method: none <GLORIA Langford Last Filed: 10/06/20 02:04> Const General: cooperative, healthy appearing, no acute distress, well developed, well groomed and anxious Nutritional Appearance: average body habitus and well nourished Orientation: alert, awake and oriented x3 [facility] Head: normal to inspection, no palpable skull fracture, normocephalic and atraumatic Ears: hearing grossly normal bilaterally, external ears normal and TM's normal bilaterally General nose exam: external nose normal Mouth: oral mucosae normal and moist mucous membranes Throat: posterior oropharynx normal Eyes General: appearance normal, both eyes and all related structures Visual Bonilla: normal visual bonilla by confrontation Alignment and Position: alignment normal Periorbital: periorbital findings normal Eyelids: eyelids normal Sclera: sclerae normal Cornea: corneas normal Pupils: PERRL EOM: EOM intact bilaterally Neck Neck: normal visual inspection, full ROM, no lymphadenopathy and no meningeal signs Resp Effort & Inspection: normal respiratory effort, able to speak in complete sentences and no respiratory distress Auscultation: clear to auscultation bilaterally, no rales, no rhonchi and no wheezes Cardio Rate: regular rate Rhythm: regular rhythm Heart Sounds: S1 normal and S2 normal GI Inspection: normal to inspection and non-distended Palpation: soft, no hepatosplenomegaly, not firm, no guarding, not rigid and nontender Percussion: normal to percussion Auscultation: normal bowel sounds Back/Spine/Pelvis Cervical Spine: normal cervical lordosis and cervical ROM normal Skin General skin exam: no rashes or lesions noted Neuro General: patient alert, patient awake and patient oriented x3 Cranial Nerves: CN's II-XI intact bilaterally Cognition: normal cognition Speech: speech normal Gait: normal gait Motor: muscle tone normal throughout, strength 5/5 throughout, no pronator drift, no movement abnormalities noted and no fasciculations Sensory Exam: no sensory deficits noted Coordination: [id number] test normal and [id number] test normal Extrem General: normal to inspection, capillary refill normal, no pedal edema and no calf tenderness Psych Appearance: grossly normal and well kempt Mental Status: mental status grossly normal Speech and Movement: speech and movement normal Mood: anxious mood Affect: anxious affect <GLORIA Langford Last Filed: 10/06/20 02:04> Vital Signs Vital signs: Vital Signs Temperature 36.1 C L 10/05/20 18:39 Pulse 109 H 10/05/20 18:39 Respiratory Rate 22 10/05/20 18:39 Blood Pressure 136/78 10/05/20 18:39 Pulse Oximetry 100 10/05/20 18:39 Temperature 36.1 C L 10/05/20 18:39 Temperature Source Temporal Artery Scan 10/05/20 18:39 Pulse 109 H 10/05/20 18:39 Respiratory Rate 22 10/05/20 18:39 Blood Pressure 136/78 10/05/20 18:39 Blood Pressure Position Sitting 10/05/20 18:39 Pulse Oximetry 100 10/05/20 18:39 Oxygen Delivery Method Room Air 10/05/20 18:39 Oxygen Flow Rate 0 10/05/20 18:39 Pain Level 0 10/05/20 18:39
[2020-10-05 19:05] LABS: Abs Immature Grans 0.04 10^3/uL (0.0-0.06); Absolute Basophil Count 0.02 10^3/uL (0.0-0.2); Absolute Eosinophil Count 0.08 10^3/uL (0.0-0.7); Absolute Monocyte Count 0.73 10^3/uL (0.1-0.8); Absolute Neutrophil Count 7.49 10^3/uL (1.2-6.7); Basophils % 0.2; Eosinophils % 0.7; HCT 34.1 % (36.0-46.0); HGB 11.4 g/dL (11.2-15.7); Immature Grans % 0.4; MCHC 33.4 % (32.0-36.0); MCV 86.8 fL (80-95); MPV 10.5 fL (8.0-11.0); Monocytes % 6.7; Nucleated RBC 0 %; Platelet Count 240 10^3/uL (130-400); RBC 3.93 10^6/uL (3.93-5.22); RDW 12.4 % (11.7-14.6); RDW-SD 39.3 fL; WBC 10.86 10^3/uL (4.4-10.8)
[2020-10-05 19:17] LABS: Prothrombin Time 9.7 sec (9.3-11.0)
[2020-10-05] MEDS: Acetaminophen 325 MG TAB 650 MG PO (19:23)
[2020-10-05] MEDS: LORazepam 2 MG/ML VIAL 0.5 MG IVP (19:23)
[2020-10-05 19:25] LABS: ALT 19 U/L (14-59); AST 12 U/L (15-37); Alkaline Phosphatase 75 U/L (46-116); Anion Gap 11.1 mmol/L (3-11); BUN 8 mg/dL (7-18); Bilirubin, Total 0.2 mg/dL (0.2-1.0); CO2 23.9 mmol/L (21.0-32.0); CREATININE 0.6 mg/dL (0.55-1.02); Calcium 9.2 mg/dL (8.5-10.1); Chloride 102 mmol/L (98-107); Glucose 87 mg/dL (74-106); Magnesium 1.7 mg/dL (1.8-2.4); Potassium 3.7 mmol/L (3.5-5.1); Sodium 137 mmol/L (136-145); TSH (W/Ref FT4) 3.03 uIU/mL (0.36-3.74); Total Protein 7.4 g/dL (6.4-8.2)
[2020-10-05 21:31] LABS: Bilirubin Negative (Negative); Blood Negative (Negative); Clarity Clear (Clear); Glucose Negative (Negative); Ketones 15 mg/dL (Negative); Leukocyte Esterase Negative (Negative); Nitrite Negative (Negative); Specific Gravity 1.015 (1.005-1.025); Urobilinogen 0.2 EU/dL (Up TO 0.2)
== END 2020-10-05 21:17 | disposition home or self-care (01) ==
PROVIDERS: Emergency Provider Physician Assistant; PCP Nurse Practitioner
DX: O26.892 Other specified pregnancy related conditions, second trimester (principal); Z3A.25 25 weeks gestation of pregnancy; G43.109 Migraine with aura, not intractable, without status migrainosus; F41.9 Anxiety disorder, unspecified
CPT/HCPCS: 36415; 36416; 80053; 82962; 93005; 96374; 99284; 81003; 83735; 84443; 85025; 85610; 93010; J2060

== ENCOUNTER 2021-10-20 18:14 | Outpatient (REF) | payer MEDICAID, SELFPAY ==
[2021-10-20 19:21] LABS: ESR 9 mm/hr (0-20)
[2021-10-20 19:22] LABS: HCT 42.6 % (36.0-46.0); HGB 13.8 g/dL (11.2-15.7); MCH 27.9 pg (27.0-33.0); MCHC 32.4 % (32.0-36.0); MCV 86 fL (80-95); MPV 11.1 fL (8.0-11.0); Platelet Count 260 10^3/uL (130-400); RBC 4.95 10^6/uL (3.93-5.22); RDW 13.1 % (11.7-14.6); RDW-SD 41.1 fL; WBC 6.32 10^3/uL (4.4-10.8)
[2021-10-20 19:48] LABS: C-Reactive Protein 1.88 mg/dL (0.0-0.3)
[2021-10-23 09:10] LABS: Cyclic Citrullinated Peptide <2.5 U/mL (<5.0)
[2021-10-23 10:25] LABS: Lyme Ab w Rflx to Lyme Confirm Negative (Negative)
== END 2021-10-20 18:15 | disposition home or self-care (01) ==
LOC: NCHCN 18:14
PROVIDERS: PCP Nurse Practitioner; Visit Provider Nurse Practitioner Family
DX: M25.461 Effusion, right knee (principal); M25.561 Pain in right knee; R79.82 Elevated C-reactive protein (CRP)
CPT/HCPCS: 85027; 85652; 86200; 86140; 86618

== ENCOUNTER 2022-01-17 10:49 | Emergency (ER) | payer MEDICAID, SELFPAY ==
[2022-01-17 10:54] VITALS: BP 145/92; PULSE 100; RESP 20; TEMP 36.8; O2SAT 100
--- NOTE | 2022-01-17 11:00 | DI.RAD_ITS ---
Exam(s) XR SCAPULA RT EXAM: XR SCAPULA RT CLINICAL HISTORY: pain, trauma. TECHNIQUE: 2D digital imaging was performed. Two views. COMPARISON: No exams were available for comparison FINDINGS: BONES: No acute fracture is present. No bony destructive lesion is seen. JOINTS: No dislocation present. SOFT TISSUE: Normal. IMPRESSION: Unremarkable radiographs of the right scapula. DATA REPOSITORY: RADIATION DOSE DELIVERED:
--- NOTE | 2022-01-17 11:15 | ED.GENADUL_ITS ---
Discharge Plan Disposition Patient Disposition: Home Condition: Stable Discharge Details Clinical Impression: Contusion of back, Fall on stairs Primary Care Provider: Rae Kelsey ED Provider: Dave Lacy Home Meds and New Rx's Prescriptions: Continued promethazine 25 mg tablet 25 mg PO TID PRN (Reason: nausea and vomiting) Qty: 10 0RF valacyclovir 500 mg tablet 500 tab PO DAILY Label Comments: TAKE 1 TABLET BY MOUTH EVERY DAY Discharge Instructions Additional Instructions: Please take acetaminophen (tylenol) - 650mg every 6 hours by mouth as needed for pain. Please contact your primary care physician to arrange follow-up. Return to the ER immediately for any worsening or new concerning symptoms. Referrals: Rae Kelsey [Primary Care Provider] - Medical Decision Making 1123 --31-year-old female here after slip and fall on 4 steps with direct trauma to her mid thoracic spine. Tender to palpation with no deformity. Neurologically intact. Patient also with pain and tenderness right scapula. Consider scapular fracture. Plan to obtain x-ray. Consider thoracic spinal fracture. Plan to obtain CT imaging. Offered analgesic and patient declined at this time. 1150 --x-ray of the scapula and CT of the thoracic spine was interpreted by radiology: Dr. Renae notes no acute findings. Suspect contusion. Plan for discharge with outpatient follow-up. Sign Out No HPI General Mode of arrival: ambulatory . Date/Time Provider Initiated Documentation: 01/17/22 11:09 . Limitations to Documentation: no limitations . Information obtained by: patient . HPI Narrative: 31-year-old female presents with chief complaint of back pain. Patient notes she slipped and fall on steps and her back impacted the steps. She did not hit her head and did not lose consciousness. She has no neck pain. No numbness or tingling. Pain is localized to mid back physically where she struck the stair. She has no chest pain or abdominal pain. She does note some right upper back pain over scapula. Related Data Home Medications Medication Instructions Recorded Confirmed promethazine 25 mg tablet 25 mg PO TID PRN nausea and 05/24/20 01/17/22 vomiting #10 tabs valacyclovir 500 mg tablet 500 tab PO DAILY 01/17/22 01/17/22 Previous Rx's Medication Instructions Recorded promethazine 25 mg tablet 25 mg PO TID PRN nausea and 05/24/20 vomiting #10 tabs Allergies Allergy/AdvReac Type Severity Reaction Status Date / Time ciprofloxacin Allergy Intermediate Itching Unverified 05/24/20 10:03 prochlorperazine AdvReac Intermediate Unverified 10/05/20 18:44 [From Compazine] General Stated Complaint: Trauma ISIS: 3 Review of Systems All systems reviewed & are unremarkable except as noted in HPI and below Gastrointestinal Gastrointestinal: Denies abdominal pain Musculoskeletal Musculoskeletal: Reports as per HPI PFSH All Active Problems (Updated 01/17/22 @ 11:50 by Dave Lacy MD) Vomiting affecting (Acute) Antepartum asymptomatic bacteriuria in first trimester (Acute) Migraine (Chronic) Visual disturbance (Acute) Contusion of back (Acute) Fall on stairs (Acute) (Acute) Tachycardia (Acute) 01/01/18 @ 13w EGA. Cards consult Medical History (Updated 01/17/22 @ 11:50 by Dave Lacy MD) Anxiety Maternal blood transfusion Migraine headache with aura Tachycardia Surgical History History of appendectomy Social History Smoking/Tobacco Use Status: Never Smoking risk assessment performed?: Yes Alcohol Intake: current Alcohol Intake frequency: holidays/special occasions only Drug use: Never Substance use type: does not use Adopted: Yes (knows biological hx. 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 Sexually active: Yes Do you feel safe at home: Yes Do you feel safe in your relationship?: Yes Female Reproductive History Menstrual Age of Menarche: 15 Duration of menses: 6-7 days control method: none History History 3 Para Hx # Term Pregnancies 1 Multiple births 0 Hx # Pregnancies 0 Ectopic pregnancies 0 AB induced 0 Hx Number of Living Children AB spontaneous 1 Past Pregnancies Del. Date GA/Weeks # Preg Succ Route Wgt Sex Labor Lgth Anesth esia Location Prov Complic Unknown Delivery Date: Last Updated by: Dolly Sheriff LPN Patient transported to [facility] on 05/17/2018 Exam Const General: cooperative and no acute distress HENMT Head: normocephalic and atraumatic Mouth: moist mucous membranes Neck Neck: trachea midline Resp Auscultation: clear to auscultation bilaterally, no rales, no rhonchi and no wheezes Cardio Jugular venous pressure: no JVD Rate: regular rate and not tachycardic Rhythm: regular rhythm GI Palpation: soft, not firm, no guarding, no masses, not rigid and nontender Back/Spine/Pelvis Cervical Spine: cervical ROM normal, No cervical spinal tenderness and No step off deformity Thoracic/Lumbar Spine: thoracic spinal tenderness (mid) and No lumbar spinal tenderness Other: Right scapula tender to palpation with no ecchymosis Skin Trauma: no lacerations Neuro General: patient alert, patient awake, patient oriented x3 and tone normal Cognition: normal cognition Speech: speech normal Motor: strength 5/5 throughout Sensory Exam: no sensory deficits noted Extrem General: no edema Right upper extremity: shoulder/upper arm Details: normal to inspection; no tenderness Psych Appearance: grossly normal Mental Status: mental status grossly normal Course Vital Signs Vital signs: Vital Signs Temperature 36.8 C 01/17/22 10:54 Pulse 100 H 01/17/22 10:54 Respiratory Rate 20 01/17/22 10:54 Blood Pressure 145/92 H 01/17/22 10:54 Pulse Oximetry 100 01/17/22 10:54 Temperature 36.8 C 01/17/22 10:54 Temperature Source Temporal Artery Scan 01/17/22 10:54 Pulse 100 H 01/17/22 10:54 Respiratory Rate 20 01/17/22 10:54 Blood Pressure 145/92 H 01/17/22 10:54 Blood Pressure Position Sitting 01/17/22 10:54 Pulse Oximetry 100 01/17/22 10:54 Oxygen Delivery Method Room Air 01/17/22 10:54 Oxygen Flow Rate 0 01/17/22 10:54 Pain Level 5 01/17/22 10:54
--- NOTE | 2022-01-17 11:27 | DI.CT_ITS ---
Exam(s) CT THORACIC SPINE WO EXAM: CT THORACIC SPINE WO CLINICAL HISTORY: focal tenderness, fall. TECHNIQUE: Imaging Protocol: Axial computed tomography images with coronal and sagittal reformatted images were created and reviewed. CONTRAST MATERIAL: Noncontrast COMPARISON: CT CT CHEST PE CTA from 05/17/2018 CR XR SCAPULA RT from 01/17/2022 FINDINGS: Bones: No fractures or dislocations are seen. The alignment of the spine is normal including the cerv icothoracic junction. No gross evidence of a disc herniation. Small endplate osteophytes are seen at multiple levels, projecting anteriorly, the largest at T4-5. The disc spaces are maintained. Soft tissues: The soft tissues of the chest are unremarkable. No large disk herniations are identifie d. Lungs appear clear where visualized. IMPRESSION: Mild degenerative changes. No evidence of fracture. The findings were called to doctor Lacy of the emergency department. RADIATION DOSE DELIVERED: 550.85mGy.cm Total DLP DATA REPOSITORY: All CT scans at this facility are submitted to the National Radiology Data Registry (NRDR) Dose Index Registry (DIR) with the [employer] ([employer]). RADIATION OPTIMIZATION: All CT scans at this facility use at least one of these dose optimization te chniques: automated exposure control; mA and/or kV adjustment per patient size (includes targeted exa ms where dose is matched to clinical indication); or iterative reconstruction.
--- NOTE | 2022-01-17 12:06 | DI.CT_ITS ---
Exam(s) CT LUMBAR SPINE WO EXAM: CT LUMBAR SPINE WO CLINICAL HISTORY: pain, fall trauma ttp t12-l2. TECHNIQUE: Imaging Protocol: Axial computed tomography images with coronal and sagittal reformatted images were created and reviewed COMPARISON: CT CT THORACIC SPINE WO from 01/17/2022 FINDINGS: Bones: The last intervertebral disc space is designated the L5/S1 level for the numbering purpose of this examination. The vertebral body heights are well maintained. Alignment is satisfactory. No fracture is seen. T12-L1: No disc herniations or bulges are present. L1-2: No disc herniations or bulges are present. L2-3: No disc herniations or bulges are present. L3-4: No disc herniations or bulges are present. L4-5: No disc herniations or bulges are present. L5-S1: No disc herniations or bulges are present. The visualized SI joints and sacrum are will maintained. Soft Tissues: The paraspinal soft tissues are unremarkable. The urinary bladder is noted to be quite distended. IMPRESSION: Normal CT examination of the lumbar spine. Findings were called to DR. Lacy of the emergency department. RADIATION DOSE DELIVERED: 579.75mGy.cm Total DLP DATA REPOSITORY: All CT scans at this facility are submitted to the National Radiology Data Registry (NRDR) Dose Index Registry (DIR) with the [employer] (A[employer]). RADIATION OPTIMIZATION: All CT scans at this facility use at least one of these dose optimization te chniques: automated exposure control; mA and/or kV adjustment per patient size (includes targeted exa ms where dose is matched to clinical indication); or iterative reconstruction.
[2022-01-17 12:49] VITALS: BP 128/86; PULSE 37; RESP 20; O2SAT 99
== END 2022-01-17 12:49 | disposition home or self-care (01) ==
PROVIDERS: Emergency Provider Student in an Organized Health Care Education/Training Program; PCP Nurse Practitioner
DX: S20.224A Contusion of middle back wall of thorax, initial encounter (principal); W10.9XXA Fall (on) (from) unspecified stairs and steps, initial encounter
CPT/HCPCS: 99284; 72128; 72131; 73010; 99282

== ENCOUNTER 2022-03-07 17:43 | Outpatient (REF) | payer MEDICAID, SELFPAY ==
[2022-03-09 11:56] LABS: COVID-19 RT-PCR UVMMC Result Negative (Negative)
== END 2022-03-07 17:44 | disposition home or self-care (01) ==
LOC: LBN 17:43
PROVIDERS: PCP Nurse Practitioner Family; Visit Provider Physician Assistant Medical
DX: J02.9 Acute pharyngitis, unspecified (principal); Z20.822 Contact with and (suspected) exposure to COVID-19
CPT/HCPCS: U0003; 87081

== ENCOUNTER 2023-02-07 15:31 | Emergency (ER) | payer MEDICAID, SELFPAY ==
[2023-02-07] VITALS (34 sets, daily range): BP systolic 106–131; BP diastolic 59–85; PULSE 95–158; RESP 13–23; TEMP 37.7; O2SAT 95–100
--- NOTE | 2023-02-07 15:30 | RT.EKG_ITS ---
APPROVED REPORT Exam: Resting ECG Reason for Exam: Chest Pain Patient Location: E HR:151 bpm ECG Measurements Heart Rate 151 AXIS HI 116 P 77 QRSd 74 QRS 66 QT 321 T -63 QTc 510 Conclusion Sinus tachycardia...rate> 99 Probable left atrial enlargement...P >50mS, <-0.10mV V1 Prolonged QT interval...QTc >495mS No ST segment or T wave abnormalities to suggest occlusive MD
--- NOTE | 2023-02-07 15:55 | W.ED.GENAD ---
Discharge Plan Disposition Patient Disposition: Home Discharge Details Clinical Impression: Ovarian cyst, Tachycardia, Abdominal pain of unknown cause, Urinary tract infection Primary Care Provider: Christie Weeks ED Provider: Bharathi Merritt Home Meds and New Rx's Prescriptions: New cephalexin 500 mg tablet 500 mg PO QID 10 Days Qty: 40 0RF Continued promethazine 25 mg tablet 25 mg PO TID PRN (Reason: nausea and vomiting) Qty: 10 0RF valacyclovir 500 mg tablet 500 tab PO DAILY Patient Comments: TAKE 1 TABLET BY MOUTH EVERY DAY Discharge Instructions Instructions: Cephalexin (By mouth), Ovarian Cyst (ED), Urinary Tract Infection in Women (ED), Abdominal Pain (ED), Tachycardia (ED) Additional Instructions: You were seen in the emergency department for your tachycardia which resolved with Tylenol, nausea meds and fluids. There is no sign of a blood clot in your lungs, multiple values of troponin were taken and there is no sign of strain on your heart or heart attack. There are findings of an ovarian cyst as well as a simple cyst near your ovary on the right side which was not the side you are having pain on, and there was no evidence of a diverticulitis of your colon. It is possible that you had a ruptured ovarian cyst on the left side with some free fluid seen in your cul-de-sac. There is some mild evidence for urinary tract infection on your urine studies, I have sent antibiotics to [facility] at the [facility] [place]. You can call back and wait for your urine culture results to make sure this is not contamination from normal skin bacteria during collection process to start these antibiotics. Please follow-up with your primary care provider for an outpatient ultrasound of your pelvic organs to evaluate your ovarian cysts. Please return to the emergency department at once for any uncontrolled tachycardia, your tachycardia resolved with fluids and simple medicines please continue aggressively hydrating yourself and taking regular dosings of Tylenol and ibuprofen. Referrals: Dave Cortez MD [ NON-[facility] STAFF PHYSICIAN] - Christie Weeks [Primary Care Provider] - Medical Decision Making This dictation utilizes [id number] dictation software and may contain unedited grammatical errors. 32 y/o F presents to ED today with a chief complaint of tachycardia to 150s, chest tightness, history sinus tachycardia- with recent febrile illness with nausea/vomiting/abdominal pain- history of appendectomy. Onset and characteristics include sore throat yesterday, followed by worsening fevers with nausea today, body aches,, with chest tightness and tachycardia. patient is not constipated and has been passing gas. Patients' medical history: tubal ligation, appendectomy, history sinus tachycardia. Family and social history: noncontributory, denies substance use, denies recent sick contacts. Pertinent exam findings / vital signs include rebound tenderness LLQ, epigastric tenderness, tachcycardic to 150s in sinus tach, no meningismus, neuro intact. Differential / pathologies of concern include diverticulitis +/- perforation, TOA, pancreatitis, cholecystitis, choledocholithiasis, biliary colic, ACS, PE, mesenteric ischemia, viral syndrome. Diagnostic studies of: -CBC, CMP, Trop I (+3hr), TSH, BNP, Mg++, Lipase, Lactate, UA, EKG > imaging decision based on D-dimer. CXR, CT ABD/Pelvis w Contrast. -EKG shows sinus tachycardia at 151 bpm with normal IN interval, normal axis, good R wave progression, no ST changes to suggest ischemia, QTc WNL -D-dimer 852 - Wells low risk 1.5 - YEARS criteria negative, HR significantly improved with IVF & APAP, more likely abdominal pathology with LLQ rebound tenderness > obtaining CXR & CT ABD/Pelvis w Contrast for other pathology, if inconclusive will consider PE -CBC shows mild leukocytosis 11.98 -lactate neg -CRP 6.26 -intial trop I negative, normal BNP do not suspect R-heart strain from significant PE or ACS, repeat trop negative. -Mg++ WNL -CMP no major electrolyte disturbances -TSH WNL -UA has small leukocyte esterase, microscopic shows 10-20 WBCs, possible UTI -CTA of the chest has no acute findings, no PE. Interventions of: -324mg ASA, 1L NS IVF, 1gm IV APAP, 4mg PO Zofran with improvement. -Patient's heart rate improved to around 100, normotensive, otherwise asymptomatic by time of discharge with these simple interventions. 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 She has endorsed chest tightness as well as abdominal pain and nausea. Labs indicate no sign of acute coronary syndrome, CTA shows no pulmonary embolism, CT abdomen pelvis shows some right-sided ovarian cyst and a simple cyst with some free fluid, possibility for ruptured cyst on the left, 10-20 WBCs on urine micro-sending antibiotics to the patient's pharmacy while they await culture to start antibiotics. I counseled her to follow-up with her primary care provider and possibly cardiology in regards to her tachycardia I advised her to stay very well-hydrated and continue Tylenol and ibuprofen and to return immediately for any uncontrolled tachycardia. Recommend Pelvic U/S by PCP order for ovarian cysts of size unconcerning for torsion. Findings not consistent with pulmonary embolus, pneumonia, acute coronary syndrome, unstable tachyarrhythmia, possibly ruptured ovarian cyst vs UTI, not sepsis. Disposition of Abdominal Pain of Unknown Cause. Patient verbalized understanding of the plan and return to ED criteria and engaged in shared decision making. Medical Records Medical records reviewed: Yes I reviewed the patient's medical records. Imaging Data Radiologic Study: Imaging: X-Ray Radiologist's impression: EXAM: XR CHEST 2V PA LATERAL CLINICAL HISTORY: chest tightness. TECHNIQUE: 2D digital imaging was performed. COMPARISON: No exams were available for comparison FINDINGS: 2 views: Heart size is normal. The mediastinum is not widened. Lungs are clear. No infiltrates nor pleural effusions. Healed left 9th rib fracture noted. IMPRESSION: No acute pulmonary findings. Radiologic Study #2: Imaging: CT Scan Radiologist's impression: EXAM: CT ABDOMEN PELVIS W CLINICAL HISTORY: LLQ rebound tenderness, epigastric pain. TECHNIQUE: Imaging Protocol: Axial computed tomography images with coronal and sagittal reformatted images were created and reviewed CONTRAST MATERIAL: Intravenous: Omnipaque-350 100cc Oral: None COMPARISON: CT CT CHEST PE CTA from 05/17/2018 CR XR CHEST 2V PA LATERAL from 02/07/2023 FINDINGS: VISUALIZED LUNG BASES: No nodules nor pleural effusions evident. ABDOMEN: There is no ascites. LIVER: There are no focal hepatic lesions evident. No dilated intrahepatic ducts. GALLBLADDER/BILIARY: No obvious gallbladder pathology. CBD is not dilated. PANCREAS: No evidence of pancreatic mass nor dilatation of the pancreatic duct. SPLEEN: Spleen is not enlarged. No obvious intrasplenic lesions. Splenic and portal veins are patent. ADRENALS: There are no significant adrenal masses. KIDNEYS:No cysts evident. No solid renal masses. No calculi nor hydronephrosis.. ABDOMINAL AORTA: Abdominal aorta is not enlarged. LYMPH NODES:There is no retroperitoneal nor paraaortic adenopathy. ABDOMINAL WALL: No evidence of significant anterior abdominal wall nor inguinal hernia. GI: There is no evidence of bowel obstruction, free air, nor abscess. PELVIS: GI: Appendix is surgically absent.No evidence of sigmoid diverticulitis. LYMPH NODES: There is no intrapelvic nor inguinal adenopathy. REPRODUCTIVE: Uterus is retroverted. Age-appropriate size. There are 2 cysts in the right ovary. One is a peripherally enhancing corpus luteal cyst which measures approximately 1.8 by 1.4 cm. The other is a simple appearing follicular cysts measuring 1.5 x 1.4 cm. There is a small-moderate amount of fluid in the cul-de-sac. There are no findings in the left adnexa. URINARY BLADDER: No calculi nor obvious masses evident OSSEOUS: No fractures and no significant osseous lesions. IMPRESSION: 1. There is an 18 x 14 mm corpus luteal cyst in the right ovary and there is also a 15 x 14 mm simple role appearing follicular cyst in the right ovary. There is a small-moderate amount of fluid in the cul-de-sac. No left adnexal findings. Retroverted uterus. 2. Appendix appears to be surgically absent. No significant sigmoid diverticular disease. Called by myself to ER physician. Radiologic Study #3: Imaging: CT Scan Radiologist's impression: vRAD CTA Chest taken due to persistent tachycardia - no acute findings. Lab Data Lab results reviewed: Yes I reviewed the patient's lab results. Labs: 02/07/23 16:20 Urine - Reflex from Ua Urine Culture - Pending Laboratory Tests Range/Units 02/07/23 02/07/23 02/07/23 16:04 16:10 16:20 WBC (4.4-10.8) 10^3/uL 11.98 H RBC (3.93-5.22) 10^6/uL 4.98 Hgb (11.2-15.7) g/dL 14.6 Hct (36.0-46.0) % 42.6 MCV (80-95) fL 86 MCH (27.0-33.0) pg 29.3 MCHC (32.0-36.0) % 34.3 RDW (11.7-14.6) % 12.5 Plt Count (130-400) 10^3/uL 239 MPV (8.0-11.0) fL 10.0 Immature Gran % 0.3 Neutrophils % 83.6 Lymphocytes % 11.0 Monocytes % 4.8 Eosinophils % 0.2 Basophils % 0.1 Nucleated RBC % (0.0-0.3) % 0.0 Absolute Neutrophils (1.2-6.7) 10^3/uL 10.02 H Absolute Lymphocytes (1.2-3.4) 10^3/uL 1.32 Absolute Monocytes (0.1-0.8) 10^3/uL 0.58 Absolute Eosinophils (0.0-0.7) 10^3/uL 0.02 Absolute Basophils (0.0-0.2) 10^3/uL 0.01 ESR (0-20) mm/hr 14 D-Dimer (<500) ng/mlFEU 852 H VBG Lactate (0.6-1.4) mmol/L 0.7 Sodium (136-145) mmol/L 137 Potassium (3.5-5.1) mmol/L 3.8 Chloride (98-107) mmol/L 101 Carbon Dioxide (21.0-32.0) mmol/L 24.1 Anion Gap (3-11) mmol/L 11.9 H BUN (7-18) mg/dL 12 Creatinine (0.55-1.02) mg/dL 0.9 Est GFR (CKD-EPI 2020) (mL/min/1.73m2) 87.65 Glucose (74-106) mg/dL 96 Calcium (8.5-10.1) mg/dL 9.6 Magnesium (1.8-2.4) mg/dL 1.8 Total Bilirubin (0.2-1.0) mg/dL 0.6 AST (15-37) U/L 14 L ALT (14-59) U/L 21 Alkaline Phosphatase (46-116) U/L 76 Troponin I (<or=60) ng/L < 50 C-Reactive Protein (0.0-0.3) mg/dL 6.26 H NT-Pro-B Natriuret Pep (<300) pg/mL 21 Total Protein (6.4-8.2) g/dL 8.4 H Albumin (3.4-5.0) g/dL 4.2 Lipase (16-77) U/L 24 TSH (0.36-3.74) uIU/mL 2.04 Beta HCG, Quant (1-3) mIU/mL < 1 L Urine Color (Yellow) Yellow Urine Clarity (Clear) Clear Urine pH (5-8) 5.5 Ur Specific [place] (1.005-1.025) 1.025 Urine Protein (Negative) mg/dL Negative Urine Ketones (Negative) mg/dL Trace H Urine Blood (Negative) Negative Urine Nitrite (Negative) Negative Urine Bilirubin (Negative) Negative Urine Urobilinogen (Up to 0.2) mg/dL 0.2 Ur Leukocyte Esterase (Negative) Small H Urine RBC (0-2) HPF 0-2 Urine WBC (0-5) HPF 10-20 H Ur Epithelial Cells (Negative) HPF Few Urine Crystals (Negative) HPF Negative Urine Bacteria (Negative) HPF Few Urine Casts (Negative) LPF Negative Urine Mucus (Negative) Trace Ur Culture Indicated? Yes Urine Glucose (Negative) mg/dL Negative COVID-19 Source Nasal/Nares SARS-CoV-2 (PCR) (Negative) Negative Range/Units 02/07/23 19:08 WBC (4.4-10.8) 10^3/uL RBC (3.93-5.22) 10^6/uL Hgb (11.2-15.7) g/dL Hct (36.0-46.0) % MCV (80-95) fL MCH (27.0-33.0) pg MCHC (32.0-36.0) % RDW (11.7-14.6) % Plt Count (130-400) 10^3/uL MPV (8.0-11.0) fL Immature Gran % Neutrophils % Lymphocytes % Monocytes % Eosinophils % Basophils % Nucleated RBC % (0.0-0.3) % Absolute Neutrophils (1.2-6.7) 10^3/uL Absolute Lymphocytes (1.2-3.4) 10^3/uL Absolute Monocytes (0.1-0.8) 10^3/uL Absolute Eosinophils (0.0-0.7) 10^3/uL Absolute Basophils (0.0-0.2) 10^3/uL ESR (0-20) mm/hr D-Dimer (<500) ng/mlFEU VBG Lactate (0.6-1.4) mmol/L Sodium (136-145) mmol/L Potassium (3.5-5.1) mmol/L Chloride (98-107) mmol/L Carbon Dioxide (21.0-32.0) mmol/L Anion Gap (3-11) mmol/L BUN (7-18) mg/dL Creatinine (0.55-1.02) mg/dL Est GFR (CKD-EPI 2020) (mL/min/1.73m2) Glucose (74-106) mg/dL Calcium (8.5-10.1) mg/dL Magnesium (1.8-2.4) mg/dL Total Bilirubin (0.2-1.0) mg/dL AST (15-37) U/L ALT (14-59) U/L Alkaline Phosphatase (46-116) U/L Troponin I (<or=60) ng/L < 50 C-Reactive Protein (0.0-0.3) mg/dL NT-Pro-B Natriuret Pep (<300) pg/mL Total Protein (6.4-8.2) g/dL Albumin (3.4-5.0) g/dL Lipase (16-77) U/L TSH (0.36-3.74) uIU/mL Beta HCG, Quant (1-3) mIU/mL Urine Color (Yellow) Urine Clarity (Clear) Urine pH (5-8) Ur Specific [place] (1.005-1.025) Urine Protein (Negative) mg/dL Urine Ketones (Negative) mg/dL Urine Blood (Negative) Urine Nitrite (Negative) Urine Bilirubin (Negative) Urine Urobilinogen (Up to 0.2) mg/dL Ur Leukocyte Esterase (Negative) Urine RBC (0-2) HPF Urine WBC (0-5) HPF Ur Epithelial Cells (Negative) HPF Urine Crystals (Negative) HPF Urine Bacteria (Negative) HPF Urine Casts (Negative) LPF Urine Mucus (Negative) Ur Culture Indicated? Urine Glucose (Negative) mg/dL COVID-19 Source SARS-CoV-2 (PCR) (Negative) HPI General Date/Time Provider Initiated Documentation: 02/07/23 15:49. HPI Narrative: 32 year-old female presents to ED today by POV/ambulating with her spouse with a chief complaint of chest tightness, tachycardia to the 150s- has seen Cardiology in the past for sinus tachycardia, and reporting a recent febrile illness with nausea without vomiting, achy joints, and stomach cramping with some shortness of breath and sweating with onset today. Quality described as chest tightness and tachycardia most focal complaints, no radiation to active vomiting, severe headache, neck stiffness, slurred speech, hematemesis, black/bloody stools. Severity is described as 6-7/10. Palliating factors include nothing specific attempted. Provoking factors include nothing specific. Events leading up to the incident/Associated Symptoms: Patient endorsed a sore throat as only symptom yesterday, denies hormonal OCP use, and has history of tubal ligation. Patient not anticoagulated. Related Data Home Medications Medication Instructions Recorded Confirmed promethazine 25 mg tablet 25 mg PO TID PRN nausea and 05/24/20 01/17/22 vomiting #10 tabs valacyclovir 500 mg tablet 500 tab PO DAILY 01/17/22 02/07/23 cephalexin 500 mg tablet 500 mg PO QID UTI 10 days #40 tabs 02/07/23 Previous Rx's Medication Instructions Recorded promethazine 25 mg tablet 25 mg PO TID PRN nausea and 05/24/20 vomiting #10 tabs cephalexin 500 mg tablet 500 mg PO QID UTI 10 days #40 tabs 02/07/23 Allergies Allergy/AdvReac Type Severity Reaction Status Date / Time ciprofloxacin Allergy Intermediate Itching Unverified 05/24/20 10:03 prochlorperazine AdvReac Intermediate Unverified 10/05/20 18:44 [From Compazine] General Stated Complaint: Palpitatns ISIS: 2 Review of Systems All systems reviewed & are unremarkable except as noted in HPI and below PFSH All Active Problems (Updated 02/07/23 @ 20:01 by GLORIA Head) Urinary tract infection (Acute) Abdominal pain of unknown cause (Acute) Tachycardia (Acute) Ovarian cyst (Acute) Visual disturbance (Acute) Migraine (Chronic) Antepartum asymptomatic bacteriuria in first trimester (Acute) Vomiting affecting (Acute) (Acute) Tachycardia (Acute) 01/01/18 @ 13w EGA. Cards consult Medical History (Updated 02/07/23 @ 20:01 by GLORIA Head) Tachycardia Migraine headache with aura Anxiety Maternal blood transfusion Surgical History History of appendectomy Social History Smoking/Tobacco Use Status: Never Smoking risk assessment performed?: Yes Alcohol Intake: current Alcohol Intake frequency: holidays/special occasions only Drug use: Never Substance use type: does not use Adopted: Yes (knows biological hx. 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 Sexually active: Yes Do you feel safe at home: Yes Do you feel safe in your relationship?: Yes Female Reproductive History Menstrual Age of Menarche: 15 Duration of menses: 6-7 days control method: none History History 3 Para Hx # Term Pregnancies 1 Multiple births 0 Hx # Pregnancies 0 Ectopic pregnancies 0 AB induced 0 Hx Number of Living Children AB spontaneous 1 Past Pregnancies Del. Date GA/Weeks # Preg Succ Route Wgt Sex Labor Lgth Anesthesia Location Prov Complic Unknown Delivery Date: Last Updated by: Dolly Sheriff LPN Patient transported to [facility] on 05/17/2018 Exam Narrative Exam Narrative: GENERAL APPEARANCE: Well-nourished, non-toxic, awake and alert, atraumatic, no acute distress. SKIN: Warm, pink, dry, intact, without rashes/lesions/ulcerations. HEAD: Normocephalic, atraumatic, normal hair distribution for gender/age. EYES: Pupils PERRLA, EOMs intact without nystagmus, normal conjunctiva, no exudates on lids/lashes. ENT: Nares patent, no circumoral cyanosis, no facial swelling, benign posterior oropharynx, uvula midline NECK: Supple, trachea midline, painless cervical ROM, mild lateral L trapezius tenderness. LUNGS/CHEST: Lungs CTA bilaterally- no rhonchi/rales/wheezees diffusely, non-labored respirations, normal A/P diameter, symmetrical expansion, no chest wall deformity HEART (CV/PV): Regular rate and rhythm without murmur- tachycardic, no peripheral edema, no JVD. ABDOMEN: Soft, non-distended, no guarding, epigastric tenderness, and LLQ rebound tenderness. MSK: Normal ROM, no swelling/deformity to bilateral UEs or LEs, moving all extremities without weakness, no cyanosis, spine midline without tenderness, normal curvature. NEURO: Mental Status AAOx4 - alert to person, place, time, events No facial droop, no forehead involvement. Motor: No focal weakness - strength 5/5 in bilateral UEs and LEs, proximal and distal, symmetric. Sensory: sensation intact to light touch globally. Gait normal: patient ambulated without ataxia into ED room. PSYCH: euthymic, cooperative, pleasant, appropriate speech Course 02/07/23 15:44 ED EKG Stat EKG Nursing/RT Intervention .STAT 02/07/23 15:49 Aspirin 325 mg PO NOW ONE Normal Saline [Saline 1000ml Bag] 1,000 ml IV BOLUS 02/07/23 16:04 COVID-19 PCR ([facility]) [SERO] Stat 02/07/23 16:10 CRP [C-Reactive Protein] Stat Cardiac Troponin I Stat Comprehensive Metabolic Panel Stat Lactate Stat Lipase Stat Magnesium Stat NT-proBNP Stat TSH (W/Ref FT4) Stat D-Dimer [COAG] Stat Complete Blood Count w/Diff [HEMO] Stat ESR [HEMO] Stat Tick & Lyme Panel [LAB] Stat HCG Quant (Serum) Stat 02/07/23 16:14 Acetaminophen [Ofirmev] 1,000 mg in 100 ml IVPB ONCE Ondansetron ODT [Zofran Odt] 4 mg PO NOW ONE 02/07/23 16:20 Urine Culture Stat Microscopic Findings [URIN] Stat Urinalysis [URIN] Stat 02/07/23 16:45 CT abdomen & pelvis w [CT] Stat XR chest 2V PA & lateral [RAD] Stat 02/07/23 17:40 Normal Saline Flush [Saline Flush 10 ml Syringe] See Dose Instructions IVP PRN PRN 02/07/23 17:45 Iohexol [Omnipaque 350] 100 ml IJ DIRECTED Normal Saline - Diluent [Saline 50 ml diluent vial] 50 ml IJ .FOR DI USE 02/07/23 18:30 CT chest PE CTA [CT] Stat 02/07/23 19:08 Cardiac Troponin I Timed Vital Signs Vital signs: Vital Signs Temperature 37.7 C H 02/07/23 15:41 Pulse 158 H 02/07/23 15:41 Respiratory Rate 16 02/07/23 15:41 Blood Pressure 131/76 02/07/23 15:41 Pulse Oximetry 99 02/07/23 15:41 Temperature 37.7 C H 02/07/23 15:41 Temperature Source Oral 02/07/23 15:41 Pulse 158 H 02/07/23 15:41 Respiratory Rate 16 02/07/23 15:41 Blood Pressure 131/76 02/07/23 15:41 Blood Pressure Position Sitting 02/07/23 15:41 Pulse Oximetry 99 02/07/23 15:41 Oxygen Delivery Method Room Air 02/07/23 15:41 Oxygen Flow Rate 0 02/07/23 15:41 Pain Level 5 02/07/23 15:41 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
[2023-02-07 16:06] LABS: Source Nasal/Nares
[2023-02-07 16:17] LABS: Abs Immature Grans 0.03 10^3/uL (0.0-0.06); Absolute Basophil Count 0.01 10^3/uL (0.0-0.2); Absolute Eosinophil Count 0.02 10^3/uL (0.0-0.7); Absolute Lymphocyte Count 1.32 10^3/uL (1.2-3.4); Absolute Monocyte Count 0.58 10^3/uL (0.1-0.8); Absolute Neutrophil Count 10.02 10^3/uL (1.2-6.7); Basophils % 0.1; Eosinophils % 0.2; HCT 42.6 % (36.0-46.0); HGB 14.6 g/dL (11.2-15.7); Immature Grans % 0.3; MCH 29.3 pg (27.0-33.0); MCHC 34.3 % (32.0-36.0); MCV 86 fL (80-95); Monocytes % 4.8; Neutrophils % 83.6; Platelet Count 239 10^3/uL (130-400); RBC 4.98 10^6/uL (3.93-5.22); RDW 12.5 % (11.7-14.6); RDW-SD 38.7 fL; WBC 11.98 10^3/uL (4.4-10.8)
[2023-02-07 16:18] LABS: Lactate 0.7 mmol/L (0.6-1.4)
[2023-02-07 16:20] LABS: ESR 14 mm/hr (0-20)
[2023-02-07] MEDS: Ondansetron O.D.T. 4 MG TABEF PO (16:24)
[2023-02-07] MEDS: Normal Saline 1,000 ML 1000 ML IV (16:24)
[2023-02-07] MEDS: ACETAMINOPHEN 1,000 MG/100 ML BTL 400 MG IVPB (16:24)
[2023-02-07] MEDS: Aspirin 325 MG TAB PO (16:24)
[2023-02-07 16:37] LABS: C-Reactive Protein 6.26 mg/dL (0.0-0.3); Lipase 24 U/L (16-77)
[2023-02-07 16:42] LABS: COVID-19 PCR Negative (Negative)
--- NOTE | 2023-02-07 16:45 | DI.CT_ITS ---
Exam(s) CT ABDOMEN PELVIS W EXAM: CT ABDOMEN PELVIS W CLINICAL HISTORY: LLQ rebound tenderness, epigastric pain. TECHNIQUE: Imaging Protocol: Axial computed tomography images with coronal and sagittal reformatted images were created and reviewed CONTRAST MATERIAL: Intravenous: Omnipaque-350 100cc Oral: None COMPARISON: CT CT CHEST PE CTA from 05/17/2018 CR XR CHEST 2V PA LATERAL from 02/07/2023 FINDINGS: VISUALIZED LUNG BASES: No nodules nor pleural effusions evident. ABDOMEN: There is no ascites. LIVER: There are no focal hepatic lesions evident. No dilated intrahepatic ducts. GALLBLADDER/BILIARY: No obvious gallbladder pathology. CBD is not dilated. PANCREAS: No evidence of pancreatic mass nor dilatation of the pancreatic duct. SPLEEN: Spleen is not enlarged. No obvious intrasplenic lesions. Splenic and portal veins are paten t. ADRENALS: There are no significant adrenal masses. KIDNEYS:No cysts evident. No solid renal masses. No calculi nor hydronephrosis.. ABDOMINAL AORTA: Abdominal aorta is not enlarged. LYMPH NODES:There is no retroperitoneal nor paraaortic adenopathy. ABDOMINAL WALL: No evidence of significant anterior abdominal wall nor inguinal hernia. GI: There is no evidence of bowel obstruction, free air, nor abscess. PELVIS: GI: Appendix is surgically absent.No evidence of sigmoid diverticulitis. LYMPH NODES: There is no intrapelvic nor inguinal adenopathy. REPRODUCTIVE: Uterus is retroverted. Age-appropriate size. There are 2 cysts in the right ovary. O ne is a peripherally enhancing corpus luteal cyst which measures approximately 1.8 by 1.4 cm. The ot her is a simple appearing follicular cysts measuring 1.5 x 1.4 cm. There is a small-moderate amount of fluid in the cul-de-sac. There are no findings in the left adnexa. URINARY BLADDER: No calculi nor obvious masses evident OSSEOUS: No fractures and no significant osseous lesions. IMPRESSION: 1. There is an 18 x 14 mm corpus luteal cyst in the right ovary and there is also a 15 x 14 mm simple role appearing follicular cyst in the right ovary. There is a small-moderate amount of fluid in the cul-de-sac. No left adnexal findings. Retroverted uterus. 2. Appendix appears to be surgically absent. No significant sigmoid diverticular disease. Called by myself to ER physician. RADIATION DOSE DELIVERED: Total DLP DATA REPOSITORY: All CT scans at this facility are submitted to the National Radiology Data Registry (NRDR) Dose Index Registry (DIR) with the [employer] ([employer]). RADIATION OPTIMIZATION: All CT scans at this facility use at least one of these dose optimization te chniques: automated exposure control; mA and/or kV adjustment per patient size (includes targeted exa ms where dose is matched to clinical indication); or iterative reconstruction.
--- NOTE | 2023-02-07 16:45 | DI.RAD_ITS ---
Exam(s) XR CHEST 2V PA LATERAL EXAM: XR CHEST 2V PA LATERAL CLINICAL HISTORY: chest tightness. TECHNIQUE: 2D digital imaging was performed. COMPARISON: No exams were available for comparison FINDINGS: 2 views: Heart size is normal. The mediastinum is not widened. Lungs are clear. No infiltrates nor pleural effusions. Healed left 9th rib fracture noted. IMPRESSION: No acute pulmonary findings. DATA REPOSITORY: RADIATION DOSE DELIVERED:
[2023-02-07 16:49] LABS: ALT 21 U/L (14-59); AST 14 U/L (15-37); Albumin 4.2 g/dL (3.4-5.0); Alkaline Phosphatase 76 U/L (46-116); Anion Gap 11.9 mmol/L (3-11); BUN 12 mg/dL (7-18); Bilirubin, Total 0.6 mg/dL (0.2-1.0); CO2 24.1 mmol/L (21.0-32.0); CREATININE 0.9 mg/dL (0.55-1.02); Calcium 9.6 mg/dL (8.5-10.1); Chloride 101 mmol/L (98-107); Estimated GFR 87.65 (mL/min/1.73m2); Glucose 96 mg/dL (74-106); Magnesium 1.8 mg/dL (1.8-2.4); NT-proBNP 21 pg/mL (<300); Potassium 3.8 mmol/L (3.5-5.1); Sodium 137 mmol/L (136-145); TSH (W/Ref FT4) 2.04 uIU/mL (0.36-3.74); Total Protein 8.4 g/dL (6.4-8.2)
[2023-02-07 16:51] LABS: D-Dimer 852 ng/mlFEU (<500); Troponin I < 50 ng/L (<or=60)
[2023-02-07 16:57] LABS: Bilirubin Negative (Negative); Blood Negative (Negative); Clarity Clear (Clear); Glucose Negative (Negative); Ketones Trace mg/dL (Negative); Leukocyte Esterase Small (Negative); Nitrite Negative (Negative); Specific Gravity 1.025 (1.005-1.025); Urobilinogen 0.2 mg/dL (Up to 0.2); pH 5.5 (5-8)
[2023-02-07 17:01] LABS: Bacteria Few HPF (Negative); C & S Indicated? Yes; Casts Negative LPF (Negative); Crystals Negative HPF (Negative); Epithelial Cells Few HPF (Negative); Mucus Trace (Negative); RBC 0-2 HPF (0-2)
[2023-02-07] MEDS: Omnipaque 350 MG/ML 100 ML BTL IJ ×2 (17:39→19:01)
[2023-02-07] MEDS: Normal Saline - Diluent 50 ML VIAL IJ ×2 (17:39→19:02)
[2023-02-07] MEDS: Normal Saline Flush 10 ML SYR IVP ×2 (17:40→19:03)
--- NOTE | 2023-02-07 18:30 | DI.CT_ITS ---
Exam(s) CT CHEST PE CTA EXAM: CT CHEST PE CTA CLINICAL HISTORY: persistent tachycardia, chest tightness. TECHNIQUE: Imaging Protocol: CT angiography of the chest was performed using pulmonary embolus berto col. Multi planar reconstructions were performed. CONTRAST MATERIAL: Intravenous: Omnipaque 350 Contrast volume: 100 cc COMPARISON: CT CT ABDOMEN PELVIS W from 02/07/2023 FINDINGS: CHEST: PULMONARY ARTERIES: There are no intraluminal filling defects to suggest acute pulmonary emboli. LUNGS: There are no infiltrates nor evidence of pulmonary infarction.. There are no pleural effusions . MEDIASTINUM: There is no hilar nor mediastinal adenopathy. Visualized thyroid unremarkable. CARDIAC: Heart size is upper normal. There is no pericardial effusion.Caliber of the thoracic aorta is within normal limits. There is no significant shift of the interventricular septum. PARTIALLY VISUALIZED UPPERMOST ABDOMEN: No obvious findings OSSEOUS: No significant osseous lesions.No acute fractures. Multiple healed left-sided rib fractures noted.. IMPRESSION: 1. No evidence of acute pulmonary emboli. No evidence of pulmonary infarction and no infectious infi ltrates..No pleural effusions. 2. No evidence of aortic dissection nor pericardial effusion. Heart size normal. 3. Multiple healed left-sided rib fractures incidentally noted. RADIATION DOSE DELIVERED: Total DLP DATA REPOSITORY: All CT scans at this facility are submitted to the National Radiology Data Registry (NRDR) Dose Index Registry (DIR) with the [employer] (ACR). RADIATION OPTIMIZATION: All CT scans at this facility use at least one of these dose optimization te chniques: automated exposure control; mA and/or kV adjustment per patient size (includes targeted exa ms where dose is matched to clinical indication); or iterative reconstruction.
[2023-02-07 18:57] LABS: HCG Quant, Pregnancy < 1 mIU/mL (1-3)
--- NOTE | 2023-02-07 19:29 | DI.VRAD_ITS ---
PROCEDURE INFORMATION: Exam: CTA Chest With Contrast Exam date and time: 02/07/2023 6:49 PM Age: 32 years old Clinical indication: Other: Persistent tachycardia, chest tightness TECHNIQUE: Imaging protocol: Computed tomographic angiography of the chest with contrast. Exam focused on the arteries. 3D rendering (Not supervised by radiologist): MIP and/or 3D reconstructed images were created by the technologist. Contrast material: OMNI 350; Contrast volume: 70 ml; Contrast route: INTRAVENOUS (IV); COMPARISON: CT CHEST PE CTA 05/17/2018 1:32 PM FINDINGS: Pulmonary arteries: No pulmonary emboli. Aorta: No aortic aneurysm. No aortic dissection. Lungs: No consolidation. No masses. Pleural spaces: Unremarkable. No pneumothorax. No pleural effusion. Heart: No cardiomegaly. No pericardial effusion. Lymph nodes: Unremarkable. No enlarged lymph nodes. Spleen: Borderline enlarged spleen, 12.9 cm in its longest dimension Bones/joints: Unremarkable. No acute fracture. Soft tissues: Unremarkable. IMPRESSION: No acute findings. Dictated and Authenticated by: Jared Cage MD. Ordering:ELIAN Garvin MD
[2023-02-07 19:35] LABS: Troponin I < 50 ng/L (<or=60)
[2023-02-11 10:47] LABS: Lyme Ab w Rflx to Lyme Confirm Negative (Negative)
[2023-02-11 16:38] LABS: Anaplasma phagocytophilum Negative (Negative); B. miyamotoi PCR Negative (Negative); Babesia divergens/MO-1 Negative (Negative); Babesia duncani Negative (Negative); Babesia microti Negative (Negative); Ehrlichia chaffeensis Negative (Negative); Ehrlichia ewingii/canis Negative (Negative); Ehrlichia muris eauclairensis Negative (Negative)
== END 2023-02-07 20:19 | disposition home or self-care (01) ==
PROVIDERS: Emergency Provider Physician Assistant; PCP Nurse Practitioner Family
DX: R00.0 Tachycardia, unspecified (principal); N39.0 Urinary tract infection, site not specified; R10.2 Pelvic and perineal pain; N83.11 Corpus luteum cyst of right ovary; N83.01 Follicular cyst of right ovary; Z20.822 Contact with and (suspected) exposure to COVID-19
CPT/HCPCS: 36415; 71275; 80053; 83690; 85652; 87635; 87798; 93005; 96374; 99285; 71046; 74177; 81003; 81015; 83605; 83735; 83880; 84443; 84484; 84702; 85025; 85379; 86140; 86618; 87086; 93010; 99284; J0131; J3490

== ENCOUNTER → 2023-05-13 02:01 | Outpatient (CLI) | payer MEDICAID, SELFPAY ==
--- NOTE | 2023-05-13 | DI.MRI_ITS ---
Exam(s) MR THORACIC SPINE WO EXAM: MR THORACIC SPINE WO CLINICAL HISTORY: PAIN IN MID BACK M54.6. TECHNIQUE: Multiplanar multisequence MRI of the Thoracic spine was performed. COMPARISON: CT CT CHEST PE CTA from 02/07/2023 CR XR CHEST 2V PA LATERAL from 02/07/2023 FINDINGS: Bones: The vertebral body heights are well maintained. Alignment is satisfactory. The signal characte ristics are unremarkable. Cord: The thoracic cord is normal size and signal intensity. No intrinsic cord lesion is present. Discs: There is a very small right-sided disc bulge at T3-T4. No central spinal canal or neural fora amparo stenosis is seen at this level. The remaining disc level show no focal disc herniation, centra l spinal canal or neural foraminal stenosis. Soft tissues: Normal. IMPRESSION: 1. Small right-sided disc bulge at T3-T4 without significant central spinal canal or nerve root compr ession seen. 2. No evidence of a compression fracture. 3. Normal signal in the spinal cord. 4. No significant central spinal canal or neural foraminal stenosis is seen in the thoracic spine. DATA REPOSITORY:
== END ==
PROVIDERS: PCP Family Medicine; Visit Provider Nurse Practitioner Family
DX: M51.24 Other intervertebral disc displacement, thoracic region (principal)
CPT/HCPCS: 72146

== ENCOUNTER 2023-05-15 23:46 | Emergency (ER) | payer MEDICAID, SELFPAY ==
[2023-05-15 23:49] VITALS: BP 177/114; PULSE 92; RESP 16; TEMP 36.8; O2SAT 98
[2023-05-16] VITALS (30 sets, daily range): BP systolic 101–135; BP diastolic 62–66; PULSE 73–86; RESP 14–16; O2SAT 93–99
--- NOTE | 2023-05-16 | RT.EKG_ITS ---
APPROVED REPORT Exam: Resting ECG Reason for Exam: epigastric pain Patient Location: E HR:78 bpm ECG Measurements Heart Rate 78 AXIS AK 140 P 72 QRSd 78 QRS 38 QT 368 T 12 QTc 419 Conclusion Sinus rhythm..., V-rate 60- 99 Low voltage, precordial leads...precordial leads <1.0mV appropriate intervals no ST segment or T wave abnormalities to suggest occlusive RI
[2023-05-16 00:06] LABS: Abs Immature Grans 0.03 10^3/uL (0.0-0.06); Absolute Basophil Count 0.03 10^3/uL (0.0-0.2); Absolute Eosinophil Count 0.23 10^3/uL (0.0-0.7); Absolute Lymphocyte Count 3.93 10^3/uL (1.2-3.4); Basophils % 0.3; HCT 41.9 % (36.0-46.0); Immature Grans % 0.3; Lymphocytes % 34.2; MCH 28.9 pg (27.0-33.0); MCHC 33.4 % (32.0-36.0); MCV 87 fL (80-95); MPV 9.9 fL (8.0-11.0); Monocytes % 6.4; Neutrophils % 56.8; Platelet Count 276 10^3/uL (130-400); RBC 4.84 10^6/uL (3.93-5.22); RDW 12.7 % (11.7-14.6); RDW-SD 39.8 fL; WBC 11.49 10^3/uL (4.4-10.8)
[2023-05-16 00:07] LABS: Absolute Monocyte Count 0.74 10^3/uL (0.1-0.8); Absolute Neutrophil Count 6.53 10^3/uL (1.2-6.7)
[2023-05-16] MEDS: Ondansetron 4 MG/2 ML VIAL IVP (00:07)
[2023-05-16] MEDS: MORPHine 4 MG/ML SYR IVP ×2 (00:07→03:51)
[2023-05-16 00:22] LABS: ALT 21 U/L (14-59); AST 15 U/L (15-37); Albumin 4.1 g/dL (3.4-5.0); Alkaline Phosphatase 83 U/L (46-116); Anion Gap 10.9 mmol/L (3-11); BUN 11 mg/dL (7-18); Bilirubin, Total 0.3 mg/dL (0.2-1.0); CO2 26.1 mmol/L (21.0-32.0); CREATININE 0.9 mg/dL (0.55-1.02); Calcium 8.8 mg/dL (8.5-10.1); Chloride 103 mmol/L (98-107); Estimated GFR 87.65 (mL/min/1.73m2); Glucose 106 mg/dL (74-106); Lipase 29 U/L (16-77); Potassium 3.4 mmol/L (3.5-5.1); Sodium 140 mmol/L (136-145); Total Protein 7.9 g/dL (6.4-8.2)
[2023-05-16 00:35] LABS: HCG Quant, Pregnancy < 1 mIU/mL (1-3)
[2023-05-16 00:38] LABS: Troponin I < 50 ng/L (< or =60)
--- NOTE | 2023-05-16 00:50 | DI.CT_ITS ---
Exam(s) CT ABDOMEN PELVIS W EXAM: CT ABDOMEN PELVIS W CLINICAL HISTORY: severe epigastric pain, TTP. TECHNIQUE: Imaging Protocol: Axial computed tomography images with coronal and sagittal reformatted images were created and reviewed CONTRAST MATERIAL: Intravenous: Omnipaque-350 100cc Oral: None COMPARISON: CT CT CHEST PE CTA from 02/07/[address] ABDOMEN PELVIS W from 02/07/[address] THORAX CTA from 05/16/2023 FINDINGS: VISUALIZED LUNG BASES: No nodules nor pleural effusions evident. ABDOMEN: There is no ascites. No hiatal hernia. LIVER: There are no focal hepatic lesions evident. No dilated intrahepatic ducts. GALLBLADDER/BILIARY: No obvious gallbladder pathology. CBD is not dilated. PANCREAS: No evidence of pancreatic mass nor dilatation of the pancreatic duct. SPLEEN: Spleen is not enlarged. No obvious intrasplenic lesions. Splenic and portal veins are paten t. ADRENALS: There are no significant adrenal masses. KIDNEYS:No cysts evident. No solid renal masses. No calculi nor hydronephrosis.. ABDOMINAL AORTA: Abdominal aorta is not enlarged. LYMPH NODES:There is no retroperitoneal nor paraaortic adenopathy. ABDOMINAL WALL: No evidence of significant anterior abdominal wall nor inguinal hernia. GI: There is no evidence of bowel obstruction, free air, nor abscess. PELVIS: GI: Prior appendectomy.No evidence of sigmoid diverticulitis. LYMPH NODES: There is no intrapelvic nor inguinal adenopathy. REPRODUCTIVE: Uterus unremarkable. Bilateral tubal ligation clips noted. There is a dominant right ovarian follicle measuring 1.5 x 1.2 cm. There is a peripherally enhancing left ovarian cyst measuri ng 2 x 1.4 cm, probably corpus luteal. URINARY BLADDER: No calculi nor obvious masses evident OSSEOUS: No fractures and no significant osseous lesions. IMPRESSION: 1. No significant acute findings in the abdomen pelvis. 2. 15 x 12 mm right ovarian follicular cyst and 20 x 14 mm left ovarian corpus luteum. 3. Previous appendectomy and tubal ligation.. No bowel obstruction evident. No ascites. RADIATION DOSE DELIVERED: Total DLP DATA REPOSITORY: All CT scans at this facility are submitted to the National Radiology Data Registry (NRDR) Dose Index Registry (DIR) with the [employer] (ACR). RADIATION OPTIMIZATION: All CT scans at this facility use at least one of these dose optimization te chniques: automated exposure control; mA and/or kV adjustment per patient size (includes targeted exa ms where dose is matched to clinical indication); or iterative reconstruction.
--- NOTE | 2023-05-16 00:50 | DI.CT_ITS ---
Exam(s) CT THORAX CTA EXAM: CT THORAX CTA CLINICAL HISTORY: epigastric pain to back, hypertensive, eval aorta. TECHNIQUE: Imaging Protocol: CT angiography of the chest was performed using pulmonary embolus berto col. Multi planar reconstructions were performed. CONTRAST MATERIAL: Intravenous: Omnipaque 350 Contrast volume: 100 cc COMPARISON: CT CT CHEST PE CTA from 02/07/2023 FINDINGS: CHEST: PULMONARY ARTERIES: There are no intraluminal filling defects to suggest acute pulmonary emboli. LUNGS: There are no infiltrates nor evidence of pulmonary infarction.. There is tiny 2 millimeter aaron ign-appearing nodule in the anterior segment of the right upper lobe. No other focal pulmonary findi ngs. No pleural effusions. MEDIASTINUM: There is no hilar nor mediastinal adenopathy. Partially visualized thyroid unremarkable. CARDIAC: Heart size is upper normal. There is no pericardial effusion.Caliber of the thoracic aorta is within normal limits. No evidence of dissection. There is no significant shift of the interventri cular septum. PARTIALLY VISUALIZED UPPERMOST ABDOMEN: No obvious findings OSSEOUS: No significant osseous lesions.Healed left-sided rib fractures. No acute fractures evident. . IMPRESSION: 1. No evidence of acute pulmonary emboli. No evidence of pulmonary infarction.No pleural effusions. 2. No evidence of aortic abnormality. No dissection. No pericardial effusion. 3. Tiny 2 millimeter benign-appearing nodule in the anterior segment of the right upper lobe incident ally noted. Does not require follow-up in low risk individual. RADIATION DOSE DELIVERED: Total DLP DATA REPOSITORY: All CT scans at this facility are submitted to the National Radiology Data Registry (NRDR) Dose Index Registry (DIR) with the [employer] (ACR). RADIATION OPTIMIZATION: All CT scans at this facility use at least one of these dose optimization te chniques: automated exposure control; mA and/or kV adjustment per patient size (includes targeted exa ms where dose is matched to clinical indication); or iterative reconstruction.
--- NOTE | 2023-05-16 01:37 | ED.GENADUL_ITS ---
Discharge Plan Discharge Details Chief Complaint: Abd Prob Primary Care Provider: Dave Cortez ED Provider: Marily Polk Home Meds and New Rx's Prescriptions: No Action valacyclovir 500 mg tablet 500 tab PO DAILY Patient Comments: TAKE 1 TABLET BY MOUTH EVERY DAY HPI General Mode of arrival: EMS . Date/Time Provider Initiated Documentation: 05/15/23 23:47 . Limitations to Documentation: no limitations . Information obtained by: patient and EMS . HPI Narrative: 32yo F presenting with severe upper abdominal pain radiating bilaterally to her flanks. Pain started two days ago and has been progressively worsening since then, now is intolerable. Pain is sharp, severe, constant, and worsened by eating. No fevers, chills, rash, dysuria, hematuria, chest pain, shortness of breath, nausea, vomiting, or diarrhea. Never had similar pain in the past. LMP ~21 days ago, no lower abdominal pain, vaginal discharge, or vaginal bleeding. Related Data Home Medications Medication Instructions Recorded Confirmed valacyclovir 500 mg tablet 500 tab PO DAILY 01/17/22 05/15/23 Allergies Allergy/AdvReac Type Severity Reaction Status Date / Time ciprofloxacin Allergy Intermediate Itching Unverified 05/15/23 23:58 prochlorperazine AdvReac Intermediate Other (See Unverified 05/15/23 23:58 [From Compazine] Comment) General Stated Complaint: Abd Prob ISIS: 3 Review of Systems Narrative: see HPI Exam Narrative Exam Narrative: General: Alert, tearful, appears to be in pain Head: Normocephalic, atraumatic Neck: Trachea midline, ?Neck supple. ENT: ?MMM.? Cardiac: ?RRR, no murmurs appreciated Resp: No respiratory distress. CTAB. Abd: ?Soft, non-distended, epigastrium TTP with no rebound or guarding. No RUQ tenderness. Negative Noe's. No lower abdominal tenderness. : ?No suprapubic tenderness. No CVA tenderness. Extremities: ?No deformities.? No peripheral edema. Neurologic: GCS 15. ? Moves all extremities freely against gravity Course Vital Signs Vital signs: Vital Signs Temperature 36.8 C 05/15/23 23:49 Pulse 92 H 05/15/23 23:49 Respiratory Rate 16 05/15/23 23:49 Blood Pressure 177/114 H 05/15/23 23:49 Pulse Oximetry 98 05/15/23 23:49 Temperature 36.8 C 05/15/23 23:49 Pulse 86 05/16/23 00:50 Respiratory Rate 16 05/16/23 00:50 Respiratory Effort Normal 05/15/23 23:53 Blood Pressure 119/66 05/16/23 00:50 Blood Pressure Mean 77 05/16/23 00:31 Pulse Oximetry 97 05/16/23 00:50 Oxygen Delivery Method Room Air 05/15/23 23:49 Oxygen Flow Rate 0 05/15/23 23:49 Pain Level 7 05/15/23 23:49 Lab/Test Results Lab/Test Results: Laboratory Tests Range/Units 05/15/23 23:50 WBC (4.4-10.8) 10^3/uL 11.49 H RBC (3.93-5.22) 10^6/uL 4.84 Hgb (11.2-15.7) g/dL 14.0 Hct (36.0-46.0) % 41.9 MCV (80-95) fL 87 MCH (27.0-33.0) pg 28.9 MCHC (32.0-36.0) % 33.4 RDW (11.7-14.6) % 12.7 Plt Count (130-400) 10^3/uL 276 MPV (8.0-11.0) fL 9.9 Immature Gran % 0.3 Neutrophils % 56.8 Lymphocytes % 34.2 Monocytes % 6.4 Eosinophils % 2.0 Basophils % 0.3 Nucleated RBC % (0.0-0.3) % 0.0 Absolute Neutrophils (1.2-6.7) 10^3/uL 6.53 Absolute Lymphocytes (1.2-3.4) 10^3/uL 3.93 H Absolute Monocytes (0.1-0.8) 10^3/uL 0.74 Absolute Eosinophils (0.0-0.7) 10^3/uL 0.23 Absolute Basophils (0.0-0.2) 10^3/uL 0.03 VBG Lactate (0.6-1.4) mmol/L 1.0 Sodium (136-145) mmol/L 140 Potassium (3.5-5.1) mmol/L 3.4 L Chloride (98-107) mmol/L 103 Carbon Dioxide (21.0-32.0) mmol/L 26.1 Anion Gap (3-11) mmol/L 10.9 BUN (7-18) mg/dL 11 Creatinine (0.55-1.02) mg/dL 0.9 Est GFR (CKD-EPI 2020) (mL/min/1.73m2) 87.65 Glucose (74-106) mg/dL 106 Calcium (8.5-10.1) mg/dL 8.8 Total Bilirubin (0.2-1.0) mg/dL 0.3 AST (15-37) U/L 15 ALT (14-59) U/L 21 Alkaline Phosphatase (46-116) U/L 83 Troponin I (< or =60) ng/L < 50 Total Protein (6.4-8.2) g/dL 7.9 Albumin (3.4-5.0) g/dL 4.1 Lipase (16-77) U/L 29 Beta HCG, Quant (1-3) mIU/mL < 1 L Medical Decision Making 32yo F presenting with severe upper abdominal pain radiating bilaterally to her flanks. Pain started two days ago and has been progressively worsening since then, now is intolerable. Pain is sharp, severe, constant, and worsened by eating. No fevers, chills, rash, dysuria, hematuria, chest pain, shortness of breath, nausea, vomiting, or diarrhea. Never had similar pain in the past. LMP ~21 days ago, no lower abdominal pain, vaginal discharge, or vaginal bleeding. -Hypertensive on arrival, vital signs otherwise reassuring. -Morphine/zofran for pain. -EKG from triage SR, no ST segment or T wave abnormalities to suggest occlusive CO. -Labs reviewed as below, CBC reassuring with mild leukocytosis, no anemia, CMP with no significant electrolyte abnormalities, normal LFTs, normal ALP. Lipase normal. Troponin negative in the setting of several days of constant pain, would not further pursue ACS. -With severe epigastric pain radiating into back and SBP 177, concern for dissection though patient with no known hx connective tissue disorders. CTA chest ordered and independently reviewed, radiology read below with no dissection. -CT abd/pelvis independently reviewed, no obstruction or large amount of free fluid on my view, radiology read below. On reassessment patient reports pain improved s/p treatment though is again increasing. Epigastrium remains tender. Normal vital signs now with adequate pain control. Gave GI cocktail and carafate; patient reports this numbed her throat but had no effect on her epigastric pain. Given the severity of her pain on arrival I remain concerned for serious pathology; discussed with patient and plan for US in the morning when they are available as well as repeat bloodwork and [facility] radiology overread of CT. Will start mIVF, continue morphine/zofran for symptoms. If no cause elucidated with further workup as planned, would consider GI referal for endoscopy. Patient will be signed out to oncoming physician at 0700 during planned EMR downtime; any further updates overnight will documented in paper chart. Imaging Data Radiologic Study: Imaging: CT Scan Radiologist's impression: IMPRESSION: 1. 1.6 cm x 1.2 cm dominant right ovarian follicle. 1.9 cm x 1.3 cm peripherally enhancing left ovarian corpus luteum. Trace free fluid in the pelvis. 2. No acute bowel pathology demonstrated. Radiologic Study #2: Imaging: CT Scan Radiologist's impression: IMPRESSION: No thoracic aortic aneurysm or dissection. Lab Data Lab results reviewed: Yes I reviewed the patient's lab results. Labs: Laboratory Tests Range/Units 05/15/23 05/16/23 23:50 02:10 WBC (4.4-10.8) 10^3/uL 11.49 H RBC (3.93-5.22) 10^6/uL 4.84 Hgb (11.2-15.7) g/dL 14.0 Hct (36.0-46.0) % 41.9 MCV (80-95) fL 87 MCH (27.0-33.0) pg 28.9 MCHC (32.0-36.0) % 33.4 RDW (11.7-14.6) % 12.7 Plt Count (130-400) 10^3/uL 276 MPV (8.0-11.0) fL 9.9 Immature Gran % 0.3 Neutrophils % 56.8 Lymphocytes % 34.2 Monocytes % 6.4 Eosinophils % 2.0 Basophils % 0.3 Nucleated RBC % (0.0-0.3) % 0.0 Absolute Neutrophils (1.2-6.7) 10^3/uL 6.53 Absolute Lymphocytes (1.2-3.4) 10^3/uL 3.93 H Absolute Monocytes (0.1-0.8) 10^3/uL 0.74 Absolute Eosinophils (0.0-0.7) 10^3/uL 0.23 Absolute Basophils (0.0-0.2) 10^3/uL 0.03 VBG Lactate (0.6-1.4) mmol/L 1.0 Sodium (136-145) mmol/L 140 Potassium (3.5-5.1) mmol/L 3.4 L Chloride (98-107) mmol/L 103 Carbon Dioxide (21.0-32.0) mmol/L 26.1 Anion Gap (3-11) mmol/L 10.9 BUN (7-18) mg/dL 11 Creatinine (0.55-1.02) mg/dL 0.9 Est GFR (CKD-EPI 2020) (mL/min/1.73m2) 87.65 Glucose (74-106) mg/dL 106 Calcium (8.5-10.1) mg/dL 8.8 Total Bilirubin (0.2-1.0) mg/dL 0.3 AST (15-37) U/L 15 ALT (14-59) U/L 21 Alkaline Phosphatase (46-116) U/L 83 Troponin I (< or =60) ng/L < 50 Total Protein (6.4-8.2) g/dL 7.9 Albumin (3.4-5.0) g/dL 4.1 Lipase (16-77) U/L 29 Beta HCG, Quant (1-3) mIU/mL < 1 L Urine Color (Yellow) Yellow Urine Clarity (Clear) Clear Urine pH (5-8) 6.0 Ur Specific [place] (1.005-1.025) 1.010 Urine Protein (Neg-Trace) mg/dL Negative Urine Ketones (Negative) mg/dL Negative Urine Blood (Negative) Negative Urine Nitrite (Negative) Negative Urine Bilirubin (Negative) Negative Urine Urobilinogen (Up to 0.2) mg/dL 0.2 Ur Leukocyte Esterase (Negative) Negative Urine Glucose (Negative) mg/dL Negative Quality:SDOH Health Related Social Needs: No Data to Display PFSH All Active Problems (Updated 03/10/23 @ 00:03 by ALISSA GALLAGHER) Visual disturbance (Acute) Migraine (Chronic) Antepartum asymptomatic bacteriuria in first trimester (Acute) Vomiting affecting (Acute) (Acute) Tachycardia (Acute) 01/01/18 @ 13w EGA. Cards consult Medical History (Updated 03/10/23 @ 00:03 by ALISSA GALLAGHER) Tachycardia Migraine headache with aura Anxiety Maternal blood transfusion Surgical History History of appendectomy Social History Smoking/Tobacco Use Status: Never Smoking risk assessment performed?: Yes Alcohol Intake: current Alcohol Intake frequency: holidays/special occasions only Drug use: Never Substance use type: does not use Adopted: Yes (knows biological hx. 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 Sexually active: Yes Do you feel safe at home: Yes Do you feel safe in your relationship?: Yes Female Reproductive History Menstrual Age of Menarche: 15 Duration of menses: 6-7 days control method: none History History 3 Para Hx # Term Pregnancies 1 Multiple births 0 Hx # Pregnancies 0 Ectopic pregnancies 0 AB induced 0 Hx Number of Living Children AB spontaneous 1 Past Pregnancies Del. Date GA/Weeks # Preg Succ Route Wgt Sex Labor Lgth Anesth esia Location Prov Complic Unknown Delivery Date: Last Updated by: Dolly Sheriff LPN [place] [facility] [place] Sign Out Sign Out Data: Sign Out Comment: 32 F 2 days of epigastric pain worsening, severe on presentation. TTP of epigastrium, abdomen otherwise non-tender. Zofran/morphine for symptoms. High suspicion for pancreattis or gallbladder pathology, possible gastritis/ulcer however laboratory workup unrevealing with normal lipase/LFTs/alkphos and CT read as normal by [facility]. Tried GI cocktail and carafate without improvement. Plan for abdominal US and repeat bloodwork in the morning. Last updated by Marily Polk MD at 05/16/23 03:50
[2023-05-16] MEDS: Omnipaque 350 MG/ML 100 ML BTL IJ ×2 (01:42→01:43)
[2023-05-16] MEDS: Normal Saline - Diluent 50 ML VIAL IJ ×2 (01:43→01:44)
[2023-05-16] MEDS: Normal Saline Flush 10 ML SYR IVP (01:44)
[2023-05-16 02:18] LABS: Bilirubin Negative (Negative); Blood Negative (Negative); Clarity Clear (Clear); Glucose Negative (Negative); Ketones Negative (Negative); Leukocyte Esterase Negative (Negative); Nitrite Negative (Negative); Urobilinogen 0.2 mg/dL (Up to 0.2)
--- NOTE | 2023-05-16 02:40 | DI.VRAD_ITS ---
PROCEDURE INFORMATION: Exam: CTA Chest With Contrast Exam date and time: 05/16/2023 1:30 AM Age: 32 years old Clinical indication: Other: Hypertensive; Other: Epigastric pain to back; Additional info: Epigastric pain to back, hypertensive, eval aorta TECHNIQUE: Imaging protocol: Computed tomographic angiography of the chest with contrast. Exam focused on the arteries. 3D rendering (Not supervised by radiologist): MIP and/or 3D reconstructed images were created by the technologist. Contrast material: OMNI 350; Contrast volume: 100 ml; Contrast route: INTRAVENOUS (IV); COMPARISON: CT CHEST PE CTA 02/07/2023 6:49 PM FINDINGS: Pulmonary arteries: No pulmonary embolism identified. Aorta: No thoracic aortic aneurysm or dissection. Thyroid: Thyroid gland partially excluded from view but grossly unremarkable through its visualized portion. Lungs: No pulmonary consolidation. Pleural spaces: No pleural effusion or pneumothorax. Heart: Normal-sized heart. Lymph nodes: No pathologically enlarged mediastinal or hilar lymph nodes. Bones/joints: No acute fracture seen among the bones of the chest. Old left-sided rib fractures Soft tissues: No gross soft tissue mass or fluid collection seen in the chest wall. IMPRESSION: No thoracic aortic aneurysm or dissection. Dictated and Authenticated by: Gera Barrios MD. Ordering:ANTHONY Calixto MD
--- NOTE | 2023-05-16 02:40 | DI.VRAD_ITS ---
PROCEDURE INFORMATION: Exam: CT Abdomen And Pelvis With Contrast Exam date and time: 05/16/2023 1:33 AM Age: 32 years old Clinical indication: Abdominal pain; Epigastric; Additional info: Severe epigastric pain, ttp TECHNIQUE: Imaging protocol: Computed tomography of the abdomen and pelvis with contrast. Contrast material: OMNI 350; Contrast volume: 100 ml; Contrast route: INTRAVENOUS (IV); COMPARISON: CT ABDOMEN PELVIS W 02/07/2023 5:28 PM FINDINGS: Liver: Normal appearing liver. Gallbladder and bile ducts: Normal appearing gallbladder. No calcified gallstones. No biliary dilatation. Pancreas: Normal appearing pancreas. Spleen: Normal appearing spleen. Adrenal glands: Normal appearing adrenal glands. Kidneys and ureters: Normal appearing kidneys. No hydronephrosis. Stomach and bowel: No oral contrast. Stomach partially decompressed. No small bowel dilatation to suggest obstruction. Normal-appearing colon. No evidence of diverticulitis or colitis. Appendix: Appendix not identified. Surgical material at the cecal apex suggesting a prior appendectomy. Correlation with surgical history recommended. Intraperitoneal space: Trace pelvic fluid. No free air. Vasculature: Normal caliber abdominal aorta. Lymph nodes: Numerous scattered small mesenteric lymph nodes, nonspecific. Urinary bladder: Normal appearing urinary bladder. Reproductive: Normal-sized uterus. Bilateral adnexal clips suggesting prior tubal ligation. 1.6 cm x 1.2 cm dominant right ovarian follicle. 1.9 cm x 1.3 cm peripherally enhancing left ovarian corpus luteum. Bones/joints: No acute fracture seen among the bones of the abdomen or pelvis. Soft tissues: No significant ventral or inguinal hernia. Notes: CT imaging through the chest obtained concurrently, dictated separately. IMPRESSION: 1. 1.6 cm x 1.2 cm dominant right ovarian follicle. 1.9 cm x 1.3 cm peripherally enhancing left ovarian corpus luteum. Trace free fluid in the pelvis. 2. No acute bowel pathology demonstrated. Dictated and Authenticated by: Gera Barrios MD. Ordering:ANTHONY Calixto MD
[2023-05-16] MEDS: Sucralfate 1 GM TAB PO (02:49)
--- NOTE | 2023-05-16 03:43 | DI.US_ITS ---
Exam(s) US ABDOMEN LIMITED EXAM: US ABDOMEN LIMITED CLINICAL HISTORY: severe worsening epigastric pain and tenderness TECHNIQUE: Ultrasound of complete upper abdomen performed using standard protocol. COMPARISON: CT CT ABDOMEN PELVIS W from 05/16/2023 FINDINGS: There is no ascites evident. LIVER: There are no hepatic lesions evident nor obvious dilatation of intrahepatic ducts. GALLBLADDER/BILIARY: There are no gallstones. No gallbladder wall edema nor pericholecystic fluid. The common hepatic duct isnot dilated, measuring 3mm at the level of carlos hepatis. PANCREAS: There is no evidence of pancreatic mass nor dilatation of the pancreatic duct. SPLEEN: The spleen is not enlarged and there are no intrasplenic lesions evident. KIDNEYS:Kidneys exhibit normal size with no evidence of solid mass, calculus, nor hydronephrosis. No cortical cysts evident. ABDOMINAL AORTA: There is no evidence of abdominal aortic aneurysm. IVC: Normal diameter where visualized. IMPRESSION: 1. No evidence of cholelithiasis nor dilatation of the biliary tree. 2. No other significant ultrasound findings in the upper abdomen. 3. There is no ascites. DATA REPOSITORY:
[2023-05-16] MEDS: Normal Saline 1,000 ML 150 ML IV (03:52)
[2023-05-16 09:32] LABS: ALT 15 U/L (14-59); AST 14 U/L (15-37); Albumin 3.3 g/dL (3.4-5.0); Alkaline Phosphatase 63 U/L (46-116); Anion Gap 8.5 mmol/L (3-11); BUN 8 mg/dL (7-18); Bilirubin, Total 0.4 mg/dL (0.2-1.0); CO2 25.5 mmol/L (21.0-32.0); CREATININE 0.8 mg/dL (0.55-1.02); Calcium 8.3 mg/dL (8.5-10.1); Chloride 107 mmol/L (98-107); Estimated GFR 100.96 (mL/min/1.73m2); Glucose 92 mg/dL (74-106); Lipase 22 U/L (16-77); Potassium 3.9 mmol/L (3.5-5.1); Sodium 141 mmol/L (136-145); Total Protein 6.6 g/dL (6.4-8.2)
--- NOTE | 2023-05-16 09:35 | W.EDPROG ---
Date of service: 05/16/23 Time of Service: 09:39 Medical Decision Making Patient resting comfortably no acute distress. Nonperitoneal examination. Ultrasound unremarkable. Patient will follow close with primary care given home care instructions and return precautions Quality:SDOH Health Related Social Needs: No Data to Display Sign Out Sign Out Data: Sign Out Comment: 32 F 2 days of epigastric pain worsening, severe on presentation. TTP of epigastrium, abdomen otherwise non-tender. Zofran/morphine for symptoms. High suspicion for pancreattis or gallbladder pathology, possible gastritis/ulcer however laboratory workup unrevealing with normal lipase/LFTs/alkphos and CT read as normal by [facility]. Tried GI cocktail and carafate without improvement. Plan for abdominal US and repeat bloodwork in the morning. Last updated by Marily Polk MD at 05/16/23 03:50 Discharge Plan Disposition Patient Disposition: Home Condition: Improving Discharge Details Clinical Impression: Abdominal pain Primary Care Provider: Dave Cortez ED Provider: Eugene Michael Home Meds and New Rx's Prescriptions: New pantoprazole 40 mg tablet,delayed release (DR/EC) 40 mg PO DAILY 30 Days Qty: 30 0RF No Action valacyclovir 500 mg tablet 500 tab PO DAILY Patient Comments: TAKE 1 TABLET BY MOUTH EVERY DAY Discharge Instructions Instructions: Abdominal Pain (ED) Additional Instructions: Please follow-up with primary care physician, consider GI follow-up.
--- NOTE | 2023-05-16 20:10 | NUR.NOTE ---
accessed patients chart for [facility] requesting patient records to be faxed to them. Nursing Note:
== END 2023-05-16 10:16 | disposition home or self-care (01) ==
PROVIDERS: Student in an Organized Health Care Education/Training Program; Emergency Provider Emergency Medicine; PCP Family Medicine
DX: R10.13 Epigastric pain (principal); N83.201 Unspecified ovarian cyst, right side; N83.12 Corpus luteum cyst of left ovary
CPT/HCPCS: 00123; 36415; 71275; 80053; 83690; 93005; 96374; 96375; 96376; 99285; 74177; 76700; 76705; 81003; 83605; 84484; 84702; 85025; 93010; 99284; J2270; J2405; J3490

== ENCOUNTER 2023-07-01 18:04 | Outpatient (CLI) | payer MEDICAID, SELFPAY ==
[2023-07-01 13:55] LABS: Vitamin D 25 Total 21.3 ng/mL (30-100)
[2023-07-01 13:56] LABS: Ferritin 34 ng/mL (8-252); Vitamin B12 580 pg/mL (193-986)
[2023-07-02 11:07] LABS: Varicella IgG Antibody Positive (See Note)
[2023-07-02 11:13] LABS: Measles IgG Antibody Negative (See Note); Mumps Antibody IgG Negative (See Note); Rubella IgG Ab (UVM) Positive (See Note)
== END 2023-07-01 18:05 | disposition home or self-care (01) ==
LOC: LBO 18:05
PROVIDERS: Internal Medicine Sleep Medicine; PCP Nurse Practitioner Family; Visit Provider Nurse Practitioner Family
DX: B01.9 Varicella without complication (principal); G25.81 Restless legs syndrome; R53.83 Other fatigue; E55.9 Vitamin D deficiency, unspecified
CPT/HCPCS: 36415; 82306; 86787; 82607; 82728; 86735; 86762; 86765

== ENCOUNTER 2023-07-05 06:19 | Day surgery (SDC) | payer MEDICAID, SELFPAY ==
[2023-07-05 06:30] VITALS: BP 110/83; PULSE 91; RESP 18; TEMP 36.4; O2SAT 100
[2023-07-05 06:43] VITALS: BP 110/83; PULSE 91; RESP 18; TEMP 36.4; O2SAT 100
[2023-07-05] MEDS: Lactated Ringers 1,000 ML 80 ML IV (06:45)
--- NOTE | 2023-07-05 07:00 | W.ANESPRE ---
General Info Date of Service Date Performed: 07/05/23 Height: 5 ft 2 in Weight: 76.7 kg Body Mass Index (BMI): 30.9 Surgical Procedure: Operation Date: 07/05/23 07:35 Proposed Procedure Side Surgeon p Gastroscopy Ute Bob DO Meds Allergies and Home Medications Allergies Allergy/AdvReac Type Severity Reaction Status Date / Time ciprofloxacin Allergy Intermediate Itching Verified 07/05/23 06:36 prochlorperazine AdvReac Intermediate Other (See Verified 07/05/23 06:36 [From Compazine] Comment) Home Medication Medication Instructions Recorded valacyclovir 500 mg tablet 500 tab PO DAILY 01/17/22 amitriptyline 25 mg tablet 25 mg PO QHS 06/19/23 budesonide-formoterol HFA 160 2 puff inhalation DAILY 06/19/23 mcg-4.5 mcg/actuation aerosol inhaler (Symbicort) lorazepam 1 mg tablet 1 mg PO PRN 06/19/23 propranolol 10 mg tablet 10 mg PO TID PRN 06/19/23 prazosin 2 mg capsule 2 mg PO QHS 07/01/23 Current Visit Medications: Current Medications Generic Name Dose Route Start Last Admin Trade Name Freq PRN Reason Stop Dose Admin Hyoscyamine Sulfate 0.125 mg 07/05/23 02:58 Hyoscyamine 0.125 Mg Sl/Oral/Chew SL 08/04/23 02:57 DIRECTED PRN Ringer's Solution 1,000 mls @ 80 mls/hr 07/05/23 06:00 07/05/23 06:45 IV 08/03/23 23:59 80 mls/hr INFUSION SHELDON Administration IV Miscellaneous Supplies 1 each 07/05/23 06:00 Iv Access IV 08/03/23 23:59 DIRECTED SHELDON Ondansetron HCl 4 mg 07/05/23 02:58 Ondansetron 4 Mg/2 Ml Vial IVP 08/04/23 02:57 Q4H PRN PRN Nausea / Vomiting Sodium Chloride 0 ml 07/05/23 06:00 Normal Saline Flush 10 Ml Syr IV 08/03/23 23:59 PRN PRN Sodium Chloride 0 ml 07/05/23 06:00 Normal Saline 10 Ml Vial IJ 08/03/23 23:59 DIRECTED PRN Sterile Water 0 ml 07/05/23 06:00 Water,Injection,Sterile 10 Ml Vial IJ 08/03/23 23:59 DIRECTED PRN [facility] Active Problems Active Problems: Problem Status Onset Code Epigastric pain R10.13 Pulmonary nodule R91.1 Dyspnea R06.00 Insomnia G47.00 Asthma, intermittent J45.20 Visual disturbance H53.9 Migraine G43.909 Antepartum asymptomatic bacteriuria in first trimester O99.891, R82.71 Vomiting affecting O21.9 Tachycardia R00.0 Z34.90 Medical History Medical History Tachycardia Been [place] [facility] [place] why, beta blockers do not work. [facility] [place] its not causing any damage Migraine headache with aura Anxiety Maternal blood transfusion Surgical History Surgical History H/O tubal ligation History of appendectomy Tobacco Smoking/Tobacco Use Status: Never Alcohol Alcohol Intake: current Alcohol intake frequency: holidays/special occasions only Substance Use Substance use: Never Substance use type: does not use Details: alcohol: unknown Prental History History 3 Para Hx # Term Pregnancies 1 Multiple births 0 Hx # Pregnancies 0 Ectopic pregnancies 0 AB induced 0 Hx Number of Living Children AB spontaneous 1 Past Pregnancies Del. Date GA/Weeks # Preg Succ Route Wgt Sex Labor Lgth Anesthesia Location Prov Complic Unknown Delivery Date: Last Updated by: Dolly Sheriff LPN Patient [place] [facility] [place] Vital Signs and Lab Results Vital Signs Most Recent Vital Signs in EMR: Most Recent Vital Signs Temp Pulse Resp BP Pulse Ox 36.4 C L 91 H 18 110/83 100 07/05/23 06:43 07/05/23 06:43 07/05/23 06:43 07/05/23 06:43 07/05/23 06:43 Point of Care Results Point of Care Results: POC- Test(urine) Negative 07/05/23 06:41 Lab Results Blood Type / Crossmatch: No Data to Display Complete Blood Count: No Data to Display Complete Metabolic Panel: No Data to Display Liver Function Panel: No Data to Display Coagulation Panel: No Data to Display Cardiac Panel: No Data to Display Arterial Blood Gas: No Data to Display Venous Blood Gas: No Data to Display Pancreas Panel: No Data to Display Thyroid Panel: No Data to Display Infectious Disease: No Data to Display Blood Cultures: No Data to Display Toxicology Panel: No Data to Display Panel: No Data to Display Anesthesia Assessment and Plan Anesthesia History Personal History: No History of Anesthesia Complications Family History: No Family History of Anesthesia Complications Exercise Tolerance Exercise Tolerance: Metabolic Equivalents>4 Pertinent Negatives Pertinent Negatives: No Symptoms of GERD and No History of CVA/TIA Cardiac & Pulmonary Exam Cardiac Exam: Normal S1/S2 Heart Sounds Pulmonary Exam: Clear Bilateral Breath Sounds Implantable Cardiac Device Does patient have a Pacemaker or an ICD?: No Airway Exam Known Difficult Airway: No Mallampati Class: 1 Mouth Opening: Normal (> 3cm) Thyromental Distance: Greater than 3 cm Neck Range of Motion: Full ROM Neck Circumference: Normal Teeth Condition: Normal Dentition ASA Classification ASA Score: ASA 2 Emergency Case?: No NPO Status NPO Status: NPO Clears >2 hours, Solids >8 hours Status Status: Negative HCG Anesthesia Plan Resuscitation Status: Full Code Anesthesia Technique: General Anesthesia Airway Planned: Natural Airway Monitors Used: Standard Monitors
[2023-07-05 07:02] VITALS: BMI 30.9
--- NOTE | 2023-07-05 07:46 | ESO_PTH ---
PATIENT: Deepthi Gramajo LOC: [facility] U#:[id number] AGE/SX: 33/F ROOM: RE07/05/[address]: Ute Bob : 1990 BED: DIS: 07/05/2023 SPEC #: [id number] RECD: 07/05/23 12:45 STATUS: SILVANO REGio #: [id number] JOHN: 07/05/23 07:[address]: Ute Bob DEPT: Surgical Specimen RECD BY: Demetria Esparza ENTERED: 07/05/23 12:48 SP TYPE: Eso BRYAN DR: Marly Perales Tissues: 1 - BIOPSY BOWEL 2 - BIOPSY BOWEL 3 - STOMACH BIOPSY 4 - STOMACH BIOPSY 5 - ESOPHAGUS BIOPSY 6 - ESOPHAGUS BIOPSY Procedures: GROSS AND MICRO LEVEL 4 Comments: [id number]
--- NOTE | 2023-07-05 08:01 | ENDO_ITS ---
Date of service: 07/05/23 Time of Service: 08:01 Endoscopy Report DATE OF PROCEDURE: 07/05/23 PRE-OP DIAGNOSIS: Abdominal pain and nausea POST-OP DIAGNOSIS: same SURGEON: Ute Bob ANESTHESIA TYPE: General:No Airway ESTIMATED BLOOD LOSS: 1 PATHOLOGY: other COMPLICATIONS: None DISPOSITION: same day PROCEDURE DESCRIPTION: After informed consent was obtained the patient was take to the procedure room and placed in a supine position. Monitors were applied and a time out was done. The patients name, date of , procedure type, allergies to medications and metal in their body was reviewed. A bite block was placed and the patient was sedated. Once sedated and comfortable the gastroscope was advanced through the oropharynx which was grossly normal into the esophagus. The proximal and mid- esophagus were normal. In the distal esophagus there was no: Esophageal erosion/varices/diverticula or strictures visualized today.. The scope was advanced into the stomach and through the pylorus into the 3rd portion of the duodenum. The duodenum was noted to be normal. Biopsies were done, all specimens are retrieved and no bleeding is noted. The scope was retracted back into the stomach and biopsies were done to rule out H. pylori. There were no gastritis or ulcers. The scope was retroflexed. The cardia and fundus were noted to be normal. There no hiatal hernia noted. The scope was retracted back into the esophagus and biopsies were done of the GE junction to rule out Dixon's. The Z line was regular. The GE junction was at 38 cm. The scope was removed and the patient was woken up and taken [facility] to [facility] in stable condition.
[2023-07-05 08:02] VITALS: BP 103/74; PULSE 113; RESP 16; TEMP 36.5; O2SAT 94
--- NOTE | 2023-07-05 08:03 | PDOC.DSDIS_ITS ---
Date of service: 07/05/23 Time of Service: 08:03 Discharge Plan Disposition Patient Disposition: Home Condition: Good Discharge Details Reason For Visit: Stomach scope Attending Provider: Ute Bob Primary Care Provider: Marly Perales Home Meds and New Rx's Prescriptions: New famotidine [Pepcid] 20 mg tablet 20 mg PO BID Qty: 60 12RF Continued prazosin 2 mg capsule 2 mg PO QHS budesonide-formoterol [Symbicort] 160-4.5 mcg/actuation HFA aerosol inhaler 2 puff inhalation DAILY Patient Comments: prn lorazepam 1 mg tablet 1 mg PO PRN Patient Comments: for flying amitriptyline 25 mg tablet 25 mg PO QHS Patient Comments: pt. not taking propranolol 10 mg tablet 10 mg PO TID PRN Patient Comments: PRN valacyclovir 500 mg tablet 500 tab PO DAILY Patient Comments: TAKE 1 TABLET BY MOUTH EVERY DAY Discharge Instructions Additional Instructions: Post EGD Instruction ?You had anesthesia for your EGD/stomach scope today.? For your safety, please do the following for the next twenty-four (24) hours: Do Not operate a motor vehicle (car, truck, motorcycle, etc.) Do Not drink alcoholic beverages or use any recreational drugs for the first 24 hours or while taking pain medications. The medications in your body may have a reaction that can be dangerous. Do Not make any important decisions or sign any important papers You have just had a gastroscopy (EGD) or upper GI tract examination. It is important for your smooth recovery that you carefully follow the recommendations below. Do not hesitate to call if any questions should arise about your anesthesia, condition, or care. -Symptoms you may experience during the next 24 hours: ?1. Mild abdominal pain or excessive gas or a bloated feeling which improves with rest, liquids, eating? slightly, and walking as tolerated. 2. Drowsiness and/or forgetfulness because of the medications you were given. ?3. Throat numbness for about 1 hour. 4. A sore throat which you can treat with throat lozenges or by gargling with salt water 4-5 times a day. 5. Redness at the site of your IV which you can treat with warm compresses. SPECIAL INSTRUCTIONS: 1. You may resume your previous diet in one hour. We recommend a light meal to start, then progress as tolerated. 2. Restart regular medications in one hour. 3. No aspirin or non-steroidal containing medication for three days. 4. No lifting over 20 pounds or strenuous activity for the first 24 hours after your procedure. After 24 hours there are no restrictions on your activity, but you may feel fatigued for a few days. Findings: Normal under gross visualization -Medications: Pepcid twice daily -Continue to follow lifestyle modifications: No alcohol, tobacco products, Aspirin or NSAID's (ibuprofen, Motrin, Naprosyn, aleve, etc).? Try to limit/avoid:? soda pop/any carbonated beverages, caffeine (including tea & chocolate), and acidic foods, (tomatoes, citrus, onions, peppermints) spicy or fried/fatty foods. Do not lie down for 30 minutes after eating, and do not eat 2 hours prior to bedtime. Avoid wearing tight fitting clothing/ belts. Follow up: -My office f/u in 2-3wks with the results of your biopsy?s in 2-3wks time. Call the office at [phone] (Office) or [phone] (Hospital), or go to the ER right away if you notice any of the followin. Vomiting blood and /or ?coffee ground? material. ?2. Worsening of abdominal pain or cramping. ?3. Trouble with breathing, cough, and/or fever (temperature above 101.5 F). 4. Increasing pain with swallowing. ?5. Chest pain. 6. Any new symptoms. 7. Worsening of the redness at the IV site Activity:: See above Diet:: See above Discharge Orders Discharge Orders: Discharge Order (Routine); Ordered 07/05/23 Ordered By: Ute Bob DS: Diagnosis Discharge Diagnosis (1) Tachycardia: Status: Acute (2) Asthma, intermittent: Status: Acute (3) Dyspnea: Status: Acute (4) Insomnia: Status: Acute (5) Epigastric pain: Status: Acute Asessment and Plan: Patient is seen and examined after they are endoscopy.? Patient has minimal sore throat.? They have been able to tolerate liquids.? They do not have any nausea vomiting.? They are not having any chest pain or shortness of breath.? They have been able to pass gas and are not having any abdominal pain or distention.? They have not vomited any blood.? The vital signs have been stable-see nursing notes. We discussed findings on their endoscopy. We reviewed the importance of lifestyle modification-see discharge instructions We reviewed any new medications that the patient may be prescribed-see discharge instructions Patient will either be sent a letter with the biopsy results or follow-up in the office-see discharge instructions. Patient was given explicit instructions to follow-up regarding post endoscopy- refer to discharge Patient verbalized understanding and discharged in stable and satisfactory condition.? See nursing notes.
--- NOTE | 2023-07-05 08:22 | W.ANESPOSTOP ---
Postoperative Evaluation Date, Time and Location Date Performed: 07/05/23 Time Performed: 08:22 Patient Location: Day Surgery Unit Vital Signs Most Recent Imported Vital Signs: Most Recent Vital Signs Temp Pulse Resp BP Pulse Ox 36.5 C 113 H 16 103/74 94 07/05/23 08:02 07/05/23 08:02 07/05/23 08:02 07/05/23 08:02 07/05/23 08:02 Pain Score Most Recent Pain Score: Most Recent Pain Score Pain Level 0 07/05/23 08:02 Assessment Mental Status: Awake (Alert & Oriented to Patient Baseline) Airway and Respiratory Function: Patent airway with normal (patient baseline) respiratory exam Cardiovascular Function: Hemodynamically Stable Hydration Status: Adequately Hydrated Nausea & Vomiting: No Nausea or Vomiting Pain: Pt. Denies Any Pain Peripheral Nerve Block: Patient did not receive a nerve block
[2023-07-05 08:30] VITALS: BP 110/76; PULSE 97; RESP 16; TEMP 36.6; O2SAT 96
== END 2023-07-05 06:20 | disposition home or self-care (01) ==
PROVIDERS: PCP Nurse Practitioner Family; Visit Provider Surgery
PROC: 0DJ68ZZ Inspection of Stomach, Via Natural or Artificial Opening Endoscopic (ICD-10-PCS; CPT 43235; principal; 2023-07-05 07:30)
DX: R10.13 Epigastric pain; R11.0 Nausea; K22.9 Disease of esophagus, unspecified
CPT/HCPCS: 43239; 81025; 88305; J2001; J2704

== ENCOUNTER 2023-07-12 02:52 | Outpatient (CLI) | payer MEDICAID, SELFPAY ==
[2023-07-12] MEDS: Methacholine 100 MG VIAL IH (11:57)
[2023-07-12] MEDS: Inhaler, Assist Device 1 EACH MC (11:58)
[2023-07-12] MEDS: Levalbuterol HFA 15 GM INH 4 PUFF IH (11:58)
--- NOTE | 2023-07-12 14:37 | W.PFT ---
Date of service: 07/12/23 Time of Service: 10:04 Pulmonary Function Test Result Indications: Dyspnea Interpretation Spirometry: There is mild airflow limitation. There was a 61% decrease in FEV1 with administration of 0.5mg/mL methacholine. Lung Volumes: Normal lung volumes Diffusion Capacity: Normal diffusion Airway Pressure: Normal airways resistance Impression Mild airflow obstruction with a positive methacholine challenge Clinical Correlation therefore is recommended.
== END 2023-07-12 02:53 | disposition home or self-care (01) ==
LOC: RT 02:53
PROVIDERS: PCP Nurse Practitioner Family; Visit Provider Physician Assistant Surgical
DX: R06.00 Dyspnea, unspecified (principal)
CPT/HCPCS: 94060; 94070; 94726; 94729; 94010; J7674

== ENCOUNTER 2023-09-04 02:43 | Outpatient (CLI) | payer MEDICAID, SELFPAY ==
[2023-09-04 13:14] LABS: Ferritin 41 ng/mL (8-252)
[2023-09-09 15:28] LABS: 1,25-Dihydroxyvitamin D 26 pg/mL (18-78)
== END 2023-09-04 02:44 | disposition home or self-care (01) ==
LOC: LOS 02:44
PROVIDERS: PCP Nurse Practitioner Family; Visit Provider Internal Medicine Sleep Medicine
DX: E55.9 Vitamin D deficiency, unspecified (principal); G25.81 Restless legs syndrome
CPT/HCPCS: 36415; 82652; 82728

== ENCOUNTER 2024-01-14 11:44 | Outpatient (CLI) | payer MEDICAID, SELFPAY ==
--- NOTE | 2024-01-14 08:45 | DI.RAD_ITS ---
Exam(s) XR CHEST 2V PA LATERAL EXAM: XR CHEST 2V PA LATERAL CLINICAL HISTORY: eval pneumonia, cough, r05.9 TECHNIQUE: 2D digital imaging was performed. Two views. COMPARISON: CT CT THORAX CTA from 05/16/2023 FINDINGS: HEART: Normal size. Aorta: Not dilated. PULMONARY VASCULATURE: Normal. MEDIASTINUM: Unremarkable. LUNGS: Clear. PLEURAL SPACE: No pleural effusion or pneumothorax. BONE:Unremarkable for age. SOFT TISSUES: Unremarkable. IMPRESSION: No acute abnormality. DATA REPOSITORY: RADIATION DOSE DELIVERED:
== END 2024-01-14 12:04 ==
LOC: DI 11:44
PROVIDERS: PCP Nurse Practitioner Family; Visit Provider Nurse Practitioner Family
DX: R05.9 Cough, unspecified (principal)
CPT/HCPCS: 71046

== ENCOUNTER 2024-07-13 13:12 | Outpatient (CLI) | payer MEDICAID, SELFPAY ==
[2024-07-13 16:53] LABS: Abs Immature Grans 0.04 10^3/uL (0.0-0.06); Absolute Basophil Count 0.03 10^3/uL (0.0-0.2); Absolute Eosinophil Count 0.12 10^3/uL (0.0-0.7); Absolute Lymphocyte Count 3.02 10^3/uL (1.2-3.4); Absolute Monocyte Count 0.66 10^3/uL (0.1-0.8); Absolute Neutrophil Count 7.75 10^3/uL (1.2-6.7); Basophils % 0.3 %; HGB 13.3 g/dL (11.2-15.7); Immature Grans % 0.3 %; MCH 29.5 pg (27.0-33.0); MCHC 34.1 % (32.0-36.0); MCV 87 fL (80-95); MPV 10.4 fL (8.0-11.0); Monocytes % 5.7 %; Neutrophils % 66.7 %; Platelet Count 255 10^3/uL (130-400); RBC 4.51 10^6/uL (3.93-5.22); RDW 12.4 % (11.7-14.6); WBC 11.62 10^3/uL (4.4-10.8)
[2024-07-15 11:07] LABS: IgE <2 IU/mL (<158)
[2024-07-15 13:19] LABS: TB Interpretation Negative (Negative)
== END 2024-07-13 13:13 | disposition home or self-care (01) ==
PROVIDERS: Physician Assistant Surgical; PCP Nurse Practitioner Family; Visit Provider Family Medicine
DX: R91.1 Solitary pulmonary nodule (principal); R06.00 Dyspnea, unspecified; Z11.1 Encounter for screening for respiratory tuberculosis
CPT/HCPCS: 36415; 82785; 85025; 86480

== ENCOUNTER 2024-09-21 15:30 | Outpatient (REF) | payer MEDICAID, SELFPAY ==
--- NOTE | 2024-09-21 07:35 | PAPFT_PTH ---
PATIENT: Deepthi Gramajo LOC: [facility]#:[id number] AGE/SX: 34/F ROOM: RE09/21/[address]: Reny Odonnell : 1990 BED: DIS: 09/21/2024 SPEC #: [id number] RECD: 09/21/24 18:08 STATUS: SILVANO REGio #: [id number] JOHN: 09/21/24 07:[address]: Reny Odonnell DEPT: [facility] Cytology RECD BY: Demetria Esparza ENTERED: 09/21/24 18:08 SP TYPE: PAPFT OTHR DR: Marly Perales Tissues: 1 - CX/ENDOCX FOR PAP SMEARS Procedures: PAP THIN PREP/[facility] Screening HPV DNA PROBE Comments: [id number] (HPV 16 & 18/45)
== END 2024-09-21 15:31 | disposition home or self-care (01) ==
LOC: NCHCN 15:30
PROVIDERS: PCP Nurse Practitioner Family; Visit Provider Family Medicine
DX: Z00.00 Encounter for general adult medical examination without abnormal findings (principal); Z12.4 Encounter for screening for malignant neoplasm of cervix
CPT/HCPCS: 88142; 87624

== ENCOUNTER 2024-12-29 01:00 | Outpatient (CLI) | payer MEDICAID, SELFPAY ==
--- NOTE | 2024-12-29 | DI.MRI_ITS ---
Exam(s) MR THORACIC SPINE WO EXAM: MR THORACIC SPINE WO CLINICAL HISTORY: M54.6,G89.29, Pain in Thoracic spine,Other chronic pain laterality TECHNIQUE: Multiplanar multisequence MRI of the thoracic spine was performed without intravenous contrast. COMPARISON: MR MR THORACIC SPINE WO from 05/13/2023 CR XR CHEST 2V PA LATERAL from 01/14/2024 FINDINGS: OSSEOUS: There are no vertebral fractures. No significant osseous lesions in the thoracic vertebrae. There is a small benign-appearing intraosseous hemangioma in the posterior aspect of T9 vertebral body again noted, unchanged. THORACIC SPINAL CORD: There is no abnormal signal in the cervical spinal cord and no evidence of focal cord atrophy nor focal cord swelling. There is no evidence of syringomyelia nor significant spinal cord dysraphism. There is no evidence of mass at the conus medullaris. The position of the conus medullaris is at normal level. SIGNIFICANT INDIVIDUAL DISC LEVEL FINDINGS: The previously described right-sided disc protrusion at T3-4 level has slightly decreased in size. This is again noted to slightly indent the anterior thecal sac at this level. However, there is no significant compromise of the central canal at this level and there is no foraminal stenosis evident. There are no additional disc protrusions evident in the thoracic spinal column. All the disc spaces continue to exhibit normal height and signal. PARASPINAL TISSUES: No significant masses nor fluid collections evident. Incidentally noted is prominent subcutaneous fatty tissue over the lower cervical-upper thoracic level having the appearance of a ???buffalo hump???. IMPRESSION: 1. Compared to the prior MRI scan of May 2023 the size of the small right- sided disc protrusion at T3-4 level has slightly decreased in size. There is no central canal stenosis at this level and there is no foraminal stenosis. No other disc space findings in the thoracic spinal column and no abnormal findings evident in of cervical spinal cord. 2. Subcutaneous fatty tissue over patient's posterior torso at lower cervical upper thoracic spinal level is unchanged from 05/13/2023 and has appearance of a ???buffalo hump???. Correlation with steroid history recommended. DATA REPOSITORY:
== END 2024-12-29 01:20 ==
LOC: DI 01:00
PROVIDERS: PCP Nurse Practitioner Family; Visit Provider Nurse Practitioner Family
DX: M51.24 Other intervertebral disc displacement, thoracic region (principal); G89.29 Other chronic pain
CPT/HCPCS: 72146

== ENCOUNTER 2025-01-19 07:43 | Outpatient (CLI) | payer MEDICAID, SELFPAY ==
--- NOTE | 2025-01-19 07:30 | DI.RAD_ITS ---
Exam(s) XR PAIN CLINIC THORACIC SP 2V EXAM: XR PAIN CLINIC THORACIC SP 2V CLINICAL HISTORY: Dx: Chronic Thoracic Pain. TECHNIQUE: Fluoroscopy was provided for the referring physician for guidance with performing pain clinic injection procedure. COMPARISON: No exams were available for comparison FINDINGS: Please see procedure note for details. Fluoro time: 2.6 seconds RADIATION DOSE DELIVERED: ivy Curran=0.56 mGy
[2025-01-19 07:51] VITALS: BP 124/88; PULSE 118; RESP 18; TEMP 36.9; O2SAT 0
--- NOTE | 2025-01-19 08:03 | PDOC.PAIN_ITS ---
Date of service: 01/19/25 Time of Service: 08:32 Pain Managment Procedure Note Procedure Note Procedure Note: Ultrasound guidedTrigger Point Injection ? Location: Bilateral thoracic parspinous ? Pre-procedure Diagnosis:? M79.10- Myalgia, unspecified site ? Post-procedure Diagnosis:? The same as above ? Sedation: none? Estimated blood loss: < 1 ml ? Surgeon:? Caden Garcia MD COMMENT: Patient has multifactorial pain. This worsens as day progresses. There is nothing specifically identified on thoracic MRI to account for this. She remotely had fractured several ribs. Pain is worse as the day progresses. It is midline and radiates out to both sides. Ultrasound and x-ray are utilized to identify target and specific specific level in the spine. ? Procedure Detail:?? The procedure and potential risks were explained to the patient and informed written consent was obtained. Time out was performed in procedure room with nursing staff confirming the patient's identity, procedure to be performed, allergies, and any blood thinning or anti-platelet medications. Sterile gloves were used, a face mask was worn, and new single dose vials of all medications were used with the top being swabbed with alcohol and given time to dry prior to withdrawal of medication.? Trigger points were palpated and confirmed to reproduce the patient?s pain symptoms.? Pre-injection ultrasound scanning of the area of interest was performed using Linear transducer, identifying relevant anatomy, landmarks, and neurovascular structures allowing for optimal needle path. The site was then prepared in the usual sterile fashion, using thorough Chlorhexadine preparation of the skin and sterile draping. The same ultrasound transducer was then passed into the sterile field using sterile probe cover and sterile ultrasound gel. X-ray was also utilized to identify level. This was at T12. Using high-frequency ultrasound probe with sterile cover target was identified.? Bilateral paraspinous muscles as well as interspinous ligament.? A 25-gauge 1.5 inch needle was advanced to the target.? following negative aspiration a total of 6 ml from a mixture of 0.5% bupivacaine and 25 mg Depo-Medrol was injected.? Bilaterally at the cervical and thoracic paraspinous muscles- total of 3 sites? The patient tolerated the procedure well. Patient discharged home in stable c ondition. PAIN: PRE-PROCEDURE 0/10 POST-PROCEDURE 0/10 Plan:? Follow up prn. Patient was not having much pain at this time of the day. Usually worse in the afternoon. I have asked her to see if she can get reports of her x-rays when she fractured her ribs to see if this correlates at all without if we need to repeat we will repeat this in the afternoon to better identify the painful area. Coding Conscious Sedation used for procedure: No CPT Codes: Fluoroscopic guidance (spine/paraspinous inj.) - 98003 ([id number] ~G) TPI Single/Multi 1 or 2 Muscles *BILATERAL* - 0005348 ([id number]~G5) 50 - BILATERAL PROCEDURE Ultrasound - 35611 ([id number] ~G) Additional Codes: Date of Service () Diagnoses: M79.10- Myalgia, unspecified site
[2025-01-19 08:13] VITALS: PULSE 117; O2SAT 100
[2025-01-19 08:20] VITALS: PULSE 107; O2SAT 100
[2025-01-19] MEDS: Nerve Block Tray 1 EACH MC (08:29)
[2025-01-19] MEDS: Bupivacaine 0.5% Pres-Free 10 ML VIAL IJ (08:29)
[2025-01-19] MEDS: methylPREDNISolone ACETATE 40 MG/ML VIAL IJ (08:30)
== END 2025-01-19 07:44 | disposition home or self-care (01) ==
LOC: PC 07:43
PROVIDERS: PCP Family Medicine; Visit Provider Anesthesiology Pain Medicine
DX: M79.18 Myalgia, other site (principal)
CPT/HCPCS: 20552; 20553; 72070; J0665; J1010